=== PATIENT | male | born 1940 | race African-American/Black ===

== ENCOUNTER 2024-10-02 20:39 | Inpatient (IN) | payer BC, OTHER ==
[~2024-10-02] VITALS: Ht 177.8 cm; Wt 61.8 kg
[2024-10-02] MEDS: ETOMIDATE (2MG/ML) 20ML VIAL IV ONE (20:43)
[2024-10-02] MEDS: ROCURONIUM 10MG/ML 10ML VIAL IV ONE (20:43)
[2024-10-02 20:47] VITALS: BP 125/62; PULSE 64; RESP 18; O2SAT 100
[2024-10-02] MEDS ORDERED: MIDAZOLAM DRIP 50 mg/50mL 50 ML IV ONE (20:48)
--- NOTE | 2024-10-02 21:00 | ED.PDOC ---
SOB-HPI HPI Comments 83 year old male came to ER via EMS for shortness of breath. Per EMS, patient has history of dementia, currently being treated for UTI with antibiotics, Patient was picked up at home, wherein he was having dinner, when he started vomiting and became short of breath and unresponsive. Patient was saturating at 95% on room air so patient was given Ambu bagging and was rushed to the ER. Noted also to be hypotensive on scene. Chief Complaint: Shortness of Breath Time Seen by MD: 20:59 Reviewed notes: Associate Dentist Notes Information Source: Emergency Med Personnel Mode of Arrival: EMS Severity: Moderate Timing: Minutes Duration: Since onset Context: With Light Exertion PE Risk Factors: None History of: Recent Antibiotic Prehospital treatment: Oxygen Past Medical History PAST MEDICAL HISTORY: Dementia, UTI'S Surgical History: Unobtainable Family History Family History: Unobtainable Social History Smoker: Unobtainable Alcohol: Unobtainable Drugs: Unobtainable Lives In: Home Unable to Obtain due to: Medical Urgency, Intubated Physical Exam General Appearance: Severe Distress, Other (Patient unresponsive to deep sternal stimuli at this time) HEENT: Normal ENT Inspection, Pharynx Normal, TMs Normal, Other (Patient intubated) Neck: Full Range of Motion, Non-Tender Respiratory: Chest Non-Tender, Decreased Breath Sounds, No Accessory Muscle Use, Respiratory Distress Cardiovascular: No Edema, No JVD, No Murmur, No Gallop, Regular Rate/Rhythm Breast Exam: Deferred Gastrointestinal: No Organomegaly, Non Tender, No Pulsatile Mass, Normal Bowel Sounds, Soft, Other (Central line at right femoral area) Genitalia: Deferred Pelvic: Deferred Rectal: Deferred Extremities: No calf tenderness, Normal capillary refill, Normal range of motion, Non-tender, No pedal edema Musculoskeletal : Apperance: Normal Neurologic: Other (Unresponsive to deep sternal stimuli) Cerebellar Function: Unable to Test Reflexes: NOT DONE Skin: Dry, Normal Color, Warm Lymphatic: No Adenopathy Was a procedure done? Was a procedure done?: Yes Sedation Sedation?: Yes Informed consent obtained: No Sedation start time: 21:11 Sedation end time: 21:41 Sedation total time: Patient still sedated and intubated at this time Central Line Recorder of insertion practice: Observer Occupation of group exercise instructor: Attending Physician Indication: Hypotension, Inability to obtain IV, Suspected infection Room prepared for procedure: Yes Senior Network Architect performed hand hygien: Yes Maximal sterile barrier precau: Mask/Eye shield, Sterile gown, Cap, Sterlie gloves, Large sterlie drape Skin Preparation: Providine iodine Skin preparation completely dr: Yes Insertion site: Right, Femoral Central line catheter type: Tunneled- not dialysis Central line exchanged over a: Yes Antiseptic ointment applied to: Yes Post Assessment: Chest X-Ray Informed consent obtained: No Risks/benefits/alt described: No Intubation Indication: Respiratory Insufficiency, Altered Mental Status Prep: Preoxygenation Pretreated with: Sedation Medicated with: Other (rocuronium, etomidate) Intubation Approach: Orotracheal Intubation size: cm (7.5) Informed consent obtained: No Risks/benefits/alt described: No Differential Dx Differential Diagnosis: Myocardial infarction, Pneumonia, Respiratory Distress, URI (Aspiration Pneumonia) X-Ray, Labs, Meds, VS Vital Signs Date Time Temp Pulse Resp B/P (MAP) Pulse Ox O2 Delivery O2 Flow Rate FiO2 10/02/24 23:49 83 18 149/73 (98) 100 30 10/02/24 23:18 166/81 10/02/24 23:00 98.1 76 18 166/81 (109) 100 98.1 10/02/24 22:45 98.1 67 18 154/78 (103) 100 98.1 10/02/24 22:30 98.1 75 18 158/84 (108) 100 98.1 10/02/24 22:30 158/84 10/02/24 22:15 98.2 70 18 169/81 (110) 100 98.2 10/02/24 22:01 70 18 168/78 100 40 10/02/24 22:00 98.2 73 18 163/83 (109) 100 98.2 10/02/24 21:50 70 18 168/78 (108) 100 40 10/02/24 21:45 72 18 168/78 (108) 100 10/02/24 21:30 81 18 165/87 (113) 100 10/02/24 21:23 125/62 10/02/24 21:20 82 10/02/24 21:15 83 18 143/77 (99) 100 10/02/24 21:00 83 18 143/77 (99) 100 10/02/24 20:49 97.5 80 17 125/62 (83) 95 10/02/24 20:47 64 18 125/62 (83) 100 60 10/02/24 20:47 64 18 125/62 (83) 100 60 10/02/24 20:45 80 10/02/24 20:45 97.5 81 17 125/62 (83) 95 97.5 10/02/24 20:43 125/62 Lab Test 10/03/24 00:26 10/02/24 22:10 10/02/24 21:40 10/02/24 21:38 Range/Units Troponin I High Sensitivity Pending 5 </=54 ng/L Blood Gas Specimen Type Arterial Blood Gas Sample Site Right radial Blood Gas Patient Temperature 37.0 Arterial Blood Date Drawn [id number] Arterial Blood pH 7.489 H 7.350-7.450 Arterial Blood Partial Pressure CO2 31.0 L 35.0-48.0 mmHg Arterial Blood Partial Pressure O2 159.0 H 83.0-108.0 mmHg Arterial Blood HCO3 23.0 21.0-28.0 mmol/L Arterial Blood Oxygen Saturation 99.1 H 94.0-98.0 % Arterial Blood Base Excess 0.4 -2.0-3.0 mmol/L Arterial Blood Oxyhemoglobin 98.2 H 94.0-98.0 % Arterial Blood Carboxyhemoglobin 0.4 L 0.5-1.5 % Arterial Blood Methemoglobin 0.5 0.0-1.5 % Jordon Test Modified Blood Gas Total Hemoglobin 12.30 L 13.5-17.5 g/dL Blood Gas Set Respiration Rate 18.0 Blood Gas Modality Vent - ac FiO2 % 60.0 Blood Gas Tidal Volume 500.0 Blood Gas PEEP or CPAP 5.0 Urine Color Yellow Yellow Urine Clarity Clear Clear Urine pH 5.5 5.0-9.0 Urine Specific [place] 1.024 1.001-1.035 Urine Protein Trace H Negative Urine Ketones Negative Negative Urine Blood Trace H Negative /uL Urine Nitrite Negative Negative Urine Bilirubin Negative Negative Urine Urobilinogen 2 H Negative mg/dL Urine Leukocyte Esterase Negative Negative /uL Urine RBC 1 0 - 3 /hpf Urine WBC 1 0 - 3 /hpf Urine Squamous Epithelial Cells Few <5 /hpf Urine Bacteria None seen None Seen /hpf Urine Hyaline Casts Few 0 - 2 /lpf Urine Mucus Few None Seen Urine Glucose Normal Normal mg/dL Test 10/02/24 21:04 Range/Units White Blood Count 9.6 4.4-10.8 10^3/uL Red Blood Count 3.59 L 4.5-5.90 10^6/uL Hemoglobin 11.3 L 13.5-17.5 g/dL Hematocrit 32.5 L 41.0-53.0 % Mean Corpuscular Volume 90.6 80.0-100.0 fL Mean Corpuscular Hemoglobin 31.4 28.0-32.0 pg Mean Corpuscular Hemoglobin Concent 34.6 32.0-36.0 g/dL Red Cell Distribution Width 13.8 11.8-14.3 % Platelet Count 255 140-450 10^3/uL Mean Platelet Volume 9.1 6.9-10.8 fL Neutrophils (%) (Auto) 79.6 37.0-80.0 % Lymphocytes (%) (Auto) 11.5 10.0-50.0 % Monocytes (%) (Auto) 6.9 0.0-12.0 % Eosinophils (%) (Auto) 1.1 0.0-7.0 % Basophils (%) (Auto) 0.9 0.0-2.0 % Neutrophils # (Auto) 7.7 1.6-8.6 10 ^3/uL Lymphocytes # (Auto) 1.1 0.4-5.4 10 ^3/uL Monocytes # (Auto) 0.7 0-1.3 10 ^3/uL Eosinophils # (Auto) 0.1 0-0.8 10 ^3/uL Basophils # (Auto) 0.1 0-0.2 10 ^3/uL Nucleated Red Blood Cells 0.0 % Sodium Level 148 H 136-145 mmol/L Potassium Level 3.3 L 3.5-5.1 mmol/L Chloride Level 113 H 98-107 mmol/L Carbon Dioxide Level 25 20-31 mmol/L Anion Gap 10 5-15 Blood Urea Nitrogen 14 9-23 mg/dL Creatinine 1.05 0.700-1.30 mg/dL Glomerular Filtration Rate Calc 71 >90 mL/min BUN/Creatinine Ratio 13.3 10.0-20.0 Serum Glucose 155 H 74-106 mg/dL Lactic Acid Level 1.3 0.4-2.0 mmol/L Calcium Level 8.8 8.7-10.4 mg/dL Total Bilirubin 0.4 0.2-1.0 mg/dL Aspartate Amino Transferase (AST) 9 L 13-40 U/L Alanine Aminotransferase (ALT) 10 7-40 U/L Alkaline Phosphatase 51 46-116 U/L Troponin I High Sensitivity 4 </=54 ng/L B-Type Natriuretic Peptide 37.62 0-100 pg/mL Total Protein 5.6 L 5.7-8.2 g/dL Albumin 3.2 3.2-4.8 g/dL Lipase 29 12-53 U/L Current Medications Medications (Trade) Dose Ordered Sig/Larissa Route Start Time Stop Time Status Last Admin Etomidate 20 mg ONCE ONCE IV 10/02/24 20:43 10/02/24 21:12 DC 10/02/24 20:43 Rocuronium [place] 100 mg ONCE ONCE IV 10/02/24 20:43 10/02/24 21:12 DC 10/02/24 20:43 Midazolam HCl 50 ml @ 1 mls/hr Q24H IV 10/02/24 21:15 10/02/24 22:45 DC 10/02/24 21:23 Midazolam HCl 50 ml @ 1 mls/hr Q24H IV 10/02/24 23:00 10/02/24 23:18 Time of 1ST Reevaluation: 20:52 Reevaluation 1ST: Unchanged Patient Education/Counseling: Pt Unresponsive Family Education/Counseling: No Family Present Departure 1 Departure Time of Disposition: 00:52 (Patient presented unresponsive and was aspirating. Patient was intubated emergently to protect his airway. Central line was placed with a right thumb for IV access and multiple medications. Patient is dehyd rated and likely aspirated with an infection brewing.. We will cover the patient with antibiotics and we will admit patient further workup.) Impression: Primary Impression: Aspiration into lower respiratory tract Qualified Codes: T17.800A - Unspecified foreign body in other parts of respiratory tract causing asphyxiation, initial encounter Additional Impressions: Unresponsive Pneumonia Qualified Codes: J18.9 - Pneumonia, unspecified organism Disposition: ADMITTED INPATIENT Admit to: ICU Condition: Critical Critical Care Note Critical Care Time?: Yes (45 min-critical care time only) Critical care comment: Unresponsive an acute respiratory failure Authorized and Performed by: Bolivar Conde MD Total critical care time: Approximately 49 minutes Due to a high probability of clinically significant, life threatening deterioration, the patient required my highest level of preparedness to intervene emergently and I personally spent this critical care time directly and personally managing the patient. This critical care time included obtaining a history; examining the patient; pulse oximetry; ordering and review of studies; arranging urgent treatment with development of a management plan; evaluation of patient's response to treatment; frequent reassessment; and, discussions with other providers. This critical care time was performed to assess and manage the high probability of imminent, life-threatening deterioration that could result in multi-organ failure. It was exclusive of separately billable procedures and treating other patients and teaching time. Please see my other sections and the rest of the note for further information on patient assessment and treatment. Stability Stability form required: No Heart Score Heart Score: Heart Score Response (Comments) Value History Moderate Suspicious 1 EKG Repolarization Disturb 1 Age >65 2 Risk Factors 1 or 2 risk factors 1 Troponin Normal limit 0 Total 5 I personally scribed for BOLIVAR CONDE MD (LENORE) on 10/02/24 at 21:00. Electronically submitted by Jhonny Giron ([employer]). I personally scribed for BOLIVAR CONDE MD (LENORE) on 10/02/24 at 21:55. Electronically submitted by Jhonny Giron ([employer]). I personally scribed for BOLIVAR CONDE MD (LENORE) on 10/03/24 at 00:45. Electronically submitted by Jhonny Giron ([facility] BOLIVAR CONDE MD Oct 02, 2024 21:00
[2024-10-02] MEDS: MIDAZOLAM DRIP 50 mg/50mL 50 ML IV SCH ×2 (21:23→23:18)
[2024-10-02 21:33] LABS: Basophils # (auto) 0.1 10 ^3/uL (0-0.2); Basophils % (auto) 0.9 % (0.0-2.0); Eosinophils # (auto) 0.1 10 ^3/uL (0-0.8); Eosinophils % (auto) 1.1 % (0.0-7.0); Hematocrit 32.5 % (41.0-53.0); Hemoglobin 11.3 g/dL (13.5-17.5); Lymphocytes # (auto) 1.1 10 ^3/uL (0.4-5.4); Lymphocytes % (auto) 11.5 % (10.0-50.0); Mean Corpuscular Hemoglobin 31.4 pg (28.0-32.0); Mean Corpuscular Hgb Conc. 34.6 g/dL (32.0-36.0); Mean Corpuscular Volume 90.6 fL (80.0-100.0); Monocytes # (auto) 0.7 10 ^3/uL (0-1.3); Monocytes % (auto) 6.9 % (0.0-12.0); Neutrophils # (auto) 7.7 10 ^3/uL (1.6-8.6); Neutrophils % (auto) 79.6 % (37.0-80.0); Platelet Count (auto) 255 10^3/uL (140-450); Red Blood Cells 3.59 10^6/uL (4.5-5.90); Red Cell Distribution Width 13.8 % (11.8-14.3); White Blood Cell 9.6 10^3/uL (4.4-10.8)
[2024-10-02 21:45] LABS: Urine Bacteria None Seen /hpf (None Seen)
[2024-10-02 21:47] LABS: Base Excess 0.4 mmol/L (-2.0-3.0)
[2024-10-02 21:48] LABS: Alanine Aminotransferase 10 U/L (7-40); Albumin 3.2 g/dL (3.2-4.8); Alkaline Phosphatase 51 U/L (46-116); Anion Gap 10 (5-15); Aspartate Aminotransferase 9 U/L (13-40); BUN/Creatinine Ratio 13.3 (10.0-20.0); Bilirubin, Total 0.4 mg/dL (0.2-1.0); Blood Urea Nitrogen 14 mg/dL (9-23); Calcium 8.8 mg/dL (8.7-10.4); Carbon Dioxide 25 mmol/L (20-31); Chloride 113 mmol/L (98-107); Glucose 155 mg/dL (74-106); Potassium 3.3 mmol/L (3.5-5.1); Sodium 148 mmol/L (136-145); Total Protein 5.6 g/dL (5.7-8.2)
[2024-10-02 21:50] VITALS: BP 168/78; PULSE 70; RESP 18; O2SAT 100
--- NOTE | 2024-10-02 21:55 | DVH ---
CHEST RADIOGRAPH Indication:ET TUBE AND NG TUBE PLACEMENT Technique: Single frontal view of the chest was obtained Comparison: None FINDINGS: Lines and Tubes: Endotracheal tube terminates about 4.4 cm above the reno. Enteric tube is in satis factory position. There is a suggested right-sided ventricular peritoneal shunt catheter with the dis shayy end incompletely visualized of the left hemiabdomen Lungs: Left basilar opacification with obscuration of the left hemidiaphragm No pneumothorax. Cardiomediastinal contours: Unremarkable Bones: No acute osseous abnormality. IMPRESSION: Endotracheal and enteric tubes are in satisfactory position. Left basilar opacification with obscuration of the left hemidiaphragm with be from pleural effusion w ith associated atelectasis. Underlying infectious process can not be excluded.
[2024-10-02 21:56] LABS: Urine Blood TRACE /uL (Negative); Urine Clarity Clear (Clear); Urine Color Yellow (Yellow); Urine Hyaline Cast FEW /lpf (0 - 2); Urine Mucus FEW (None Seen); Urine Protein, UAD TRACE (Negative); Urine Specific Gravity 1.024 (1.001-1.035); Urine Urobilinogen 2 mg/dL (Negative); Urine WBC 1 /hpf (0 - 3); Urine pH 5.5 (5.0-9.0)
[2024-10-02 22:01] VITALS: BP 168/78; PULSE 70; RESP 18; O2SAT 100
[2024-10-02 22:05] LABS: Lipase 29 U/L (12-53)
[2024-10-02] MEDS ORDERED: MIDAZOLAM DRIP 50 mg/50mL 50 ML IV SCH (23:00)
[2024-10-02 23:49] VITALS: BP 149/73; PULSE 83; RESP 18; O2SAT 100
[2024-10-03] VITALS (79 sets, daily range): BP systolic 104–187; BP diastolic 49–112; PULSE 66–90; RESP 10–20; TEMP 97–98.6; O2SAT 98–100
[2024-10-03] MEDS: VANCOMYCIN 1GM/200ML PREMIX 200 ML IV ONE (00:15)
[2024-10-03] MEDS: AZITHROMYCIN 500MG/ 250ML 250 ML IV ONE (00:56)
[2024-10-03] MEDS: CEFEPIME 2GM/50ML NS 50 ML IV ONE (00:57)
[2024-10-03] MEDS: SOD CHL 0.45% 1,000 ML IV ONE (01:45)
[2024-10-03] MEDS ORDERED: ONDANSETRON HCL 4 MG/2 ML VIAL IV PRN (01:45)
[2024-10-03] MEDS ORDERED: MORPHINE SULFATE INJ 2 MG/ml SYRG IV PRN (01:45)
[2024-10-03] MEDS ORDERED: NITROGLYCERIN 0.4 MG SL TAB SL PRN (01:45)
[2024-10-03] MEDS: NOREPINEPHRINE 8 MG/250ML KIT 250 ML IV SCH (03:00)
--- NOTE | 2024-10-03 03:25 | DVH ---
Examination: HWOCT CLINICAL INDICATION: Unresponsive, intubated COMPARISON: None. CONTRAST USED: None. TECHNIQUE: The examination was performed obtaining 5 mm slices without contrast. CT scan was done ac cording to ALARA (As Low as Reasonably Achievable). Multiplanar reconstructions were obtained. FINDINGS: SUPRATENTORIAL BRAIN: Cerebral Hemispheres: There is no midline shift or mass effect, intra or extra-axial fluid collections or hemorrhage. Prominent sulcal-gyral pattern in both cerebral hemispheres with dilatation of both lateral and third ventricles, suggestive of cerebral atrophy (likely age-related) with mild ex-vacuo dilatation of reuben tricular system. Periventricular White Matter/Basal Ganglia: No abnormal areas of altered attenuation within the basal ganglia. Diffuse hypodensities noted in periventricular deep white matter of bilateral cerebral hemispheres. POSTERIOR FOSSA: The brainstem is unremarkable. Prominent cerebellar folia, suggestive of cerebellar atrophy, likely age-related. VENTRICULAR SYSTEM: Ventricular shunt drainage tube noted on the right side, with its tip in the body of right lateral ve ntricle. There is no evidence of hydrocephalus or transependymal flow of cerebrospinal fluid. SKULL BASE AND PARASELLAR REGION: The skull base is normal with no parasellar masses or abnormalities identified. CALVARIUM AND SCALP REGION: No acute fracture in the skull vault. PARANASAL SINUSES: No significant inflammatory changes are identified in the visualized paranasal sinuses. Nasogastric tube noted. IMPRESSION: 1. No evidence of acute large vessel territorial ischemic infarction or intraparenchymal hematoma in current study. 2. Diffuse hypodensities noted in periventricular deep white matter of bilateral cerebral hemisphere s, due to transependymal seepage of CSF / chronic periventricular ischemic changes. 3. Ventricular shunt drainage tube noted on the right side, with its tip in the body of right latera l ventricle. 4. Chronic and / or ancillary findings as described above. 5. Advised further evaluation with MRI brain without contrast if clinically indicated. Electronically Signed 10/03/2024 03:16 Elisabeth Barragan
[2024-10-03] MEDS ORDERED: methylPREDNISolone SOD SUCC 125 MG/2 ML VL IV SCH (06:00)
[2024-10-03] MEDS: ALBUTEROL SULF 2.5 MG/0.5ML(0.5%) NEB SOLN NEB SCH (06:14)
[2024-10-03] MEDS: IPRATROPIUM BROM 0.5 MG/2.5ML INH SOL NEB SCH (06:14)
[2024-10-03 06:29] LABS: Basophils # (auto) 0.1 10 ^3/uL (0-0.2); Basophils % (auto) 0.5 % (0.0-2.0); Eosinophils # (auto) 0.1 10 ^3/uL (0-0.8); Hematocrit 32.6 % (41.0-53.0); Lymphocytes # (auto) 0.9 10 ^3/uL (0.4-5.4); Lymphocytes % (auto) 8.2 % (10.0-50.0); Mean Corpuscular Hemoglobin 30.7 pg (28.0-32.0); Mean Corpuscular Hgb Conc. 33.7 g/dL (32.0-36.0); Mean Corpuscular Volume 91.3 fL (80.0-100.0); Monocytes # (auto) 0.8 10 ^3/uL (0-1.3); Monocytes % (auto) 7.3 % (0.0-12.0); Neutrophils # (auto) 9.3 10 ^3/uL (1.6-8.6); Nucleated Red Blood Cells % 0.1 %; Platelet Count (auto) 266 10^3/uL (140-450); Red Blood Cells 3.57 10^6/uL (4.5-5.90); Red Cell Distribution Width 13.2 % (11.8-14.3); White Blood Cell 11.2 10^3/uL (4.4-10.8)
[2024-10-03 06:52] LABS: Albumin 3.3 g/dL (3.2-4.8); Alkaline Phosphatase 49 U/L (46-116); Anion Gap 9 (5-15); BUN/Creatinine Ratio 17.1 (10.0-20.0); Bilirubin, Total 0.7 mg/dL (0.2-1.0); Blood Urea Nitrogen 13 mg/dL (9-23); Carbon Dioxide 23 mmol/L (20-31); Chloride 113 mmol/L (98-107); Glucose 135 mg/dL (74-106); Potassium 3.2 mmol/L (3.5-5.1); Sodium 145 mmol/L (136-145); Total Protein 5.6 g/dL (5.7-8.2)
[2024-10-03 06:53] LABS: Alanine Aminotransferase < 9 U/L (7-40); Aspartate Aminotransferase < 8 U/L (13-40)
[2024-10-03 06:58] LABS: Base Excess 0.6 mmol/L (-2.0-3.0)
--- NOTE | 2024-10-03 09:01 | DVHINCON2 ---
Referring Physician pulm consulted [phone] Reason for Consultation dx 1 resp failure 2 m ventilation 3 lt lowewr lobe infiltrate most likely aspiration plan 1 reduce t v 450 and rate 18 and peep 5 and 30%2 rocephin 2 gm i v q d 3 solumedrol 40 q 8 and med neb q 6 Allergies: Coded Allergies: NO KNOWN ALLERGIES (Unverified , 10/02/24) Current Medications Current Medications Medications (Trade) Dose Ordered Sig/Larissa Route PRN Reason Start Time Stop Time Status Last Admin Midazolam HCl 50 ml @ 1 mls/hr Q24H IV 10/02/24 21:15 10/02/24 22:45 DC 10/02/24 21:23 Midazolam HCl 50 ml @ 1 mls/hr Q24H IV 10/02/24 23:00 10/02/24 22:49 DC Midazolam HCl 50 ml @ 1 mls/hr Q24H IV 10/02/24 23:00 10/02/24 23:18 Nitroglycerin (Ntrostat Sublingual) 0.4 mg Q5MINP PRN SL FOR CHEST PAIN 10/03/24 01:45 Morphine Sulfate 2 mg Q30M PRN IV FOR CHEST PAIN 10/03/24 01:45 Albuterol (Ventolin Medneb) 2.5 mg Q6HR NEB 10/03/24 06:00 10/03/24 06:14 Ipratropium [place] (Atrovent Medneb) 0.5 mg Q6HP NEB 10/03/24 06:00 10/03/24 06:14 Ondansetron HCl (Zofran) 4 mg Q6HPRN PRN IV NAUSEA / VOMITING 10/03/24 01:45 Methylprednisolone Sodium Succinate (Solu Medrol) 125 mg Q8HR IV 10/03/24 06:00 10/03/24 22:01 UNV Norepinephrine Bitartrate 250 ml @ 3.75 mls/hr Q24H IV 10/03/24 03:00 Vital Signs Vital Signs Date Time Temp Pulse Resp B/P (MAP) Pulse Ox O2 Delivery O2 Flow Rate FiO2 10/03/24 08:03 73 18 130/64 (86) 100 30 10/03/24 08:00 97.9 97.9 10/03/24 08:00 Mechanical Ventilator+ Labs/Diagnostic Data Labs Test 10/03/24 06:53 10/03/24 05:26 10/03/24 01:10 10/03/24 00:26 Range/Units Blood Gas Specimen Type Arterial Blood Gas Sample Site Right radial Blood Gas Patient Temperature 37.0 Arterial Blood Date Drawn [id number] Arterial Blood pH 7.430 7.350-7.450 Arterial Blood Partial Pressure CO2 38.1 35.0-48.0 mmHg Arterial Blood Partial Pressure O2 111.7 H 83.0-108.0 mmHg Arterial Blood HCO3 24.7 21.0-28.0 mmol/L Arterial Blood Oxygen Saturation 97.9 94.0-98.0 % Arterial Blood Base Excess 0.6 -2.0-3.0 mmol/L Arterial Blood Oxyhemoglobin 97.1 94.0-98.0 % Arterial Blood Carboxyhemoglobin 0.3 L 0.5-1.5 % Arterial Blood Methemoglobin 0.5 0.0-1.5 % Jordon Test Modified Blood Gas Total Hemoglobin 12.00 L 13.5-17.5 g/dL Blood Gas Set Respiration Rate 18.0 Blood Gas Modality Vent - ac FiO2 % 30.0 Blood Gas Tidal Volume 500.0 Blood Gas PEEP or CPAP 5.0 White Blood Count 11.2 H 4.4-10.8 10^3/uL Red Blood Count 3.57 L 4.5-5.90 10^6/uL Hemoglobin 11.0 L 13.5-17.5 g/dL Hematocrit 32.6 L 41.0-53.0 % Mean Corpuscular Volume 91.3 80.0-100.0 fL Mean Corpuscular Hemoglobin 30.7 28.0-32.0 pg Mean Corpuscular Hemoglobin Concent 33.7 32.0-36.0 g/dL Red Cell Distribution Width 13.2 11.8-14.3 % Platelet Count 266 140-450 10^3/uL Mean Platelet Volume 8.0 6.9-10.8 fL Neutrophils (%) (Auto) 83.0 H 37.0-80.0 % Lymphocytes (%) (Auto) 8.2 L 10.0-50.0 % Monocytes (%) (Auto) 7.3 0.0-12.0 % Eosinophils (%) (Auto) 1.0 0.0-7.0 % Basophils (%) (Auto) 0.5 0.0-2.0 % Neutrophils # (Auto) 9.3 H 1.6-8.6 10 ^3/uL Lymphocytes # (Auto) 0.9 0.4-5.4 10 ^3/uL Monocytes # (Auto) 0.8 0-1.3 10 ^3/uL Eosinophils # (Auto) 0.1 0-0.8 10 ^3/uL Basophils # (Auto) 0.1 0-0.2 10 ^3/uL Nucleated Red Blood Cells 0.1 % Sodium Level 145 136-145 mmol/L Potassium Level 3.2 L 3.5-5.1 mmol/L Chloride Level 113 H 98-107 mmol/L Carbon Dioxide Level 23 20-31 mmol/L Anion Gap 9 5-15 Blood Urea Nitrogen 13 9-23 mg/dL Creatinine 0.76 0.700-1.30 mg/dL Glomerular Filtration Rate Calc 90 >90 mL/min BUN/Creatinine Ratio 17.1 10.0-20.0 Serum Glucose 135 H 74-106 mg/dL Calcium Level 9.0 8.7-10.4 mg/dL Total Bilirubin 0.7 0.2-1.0 mg/dL Aspartate Amino Transferase (AST) < 8 L 13-40 U/L Alanine Aminotransferase (ALT) < 9 7-40 U/L Alkaline Phosphatase 49 46-116 U/L Total Protein 5.6 L 5.7-8.2 g/dL Albumin 3.3 3.2-4.8 g/dL Lactic Acid Level 1.2 0.4-2.0 mmol/L Troponin I High Sensitivity 3 L </=54 ng/L Test 10/02/24 21:38 10/02/24 21:04 Range/Units Urine Color Yellow Yellow Urine Clarity Clear Clear Urine pH 5.5 5.0-9.0 Urine Specific [place] 1.024 1.001-1.035 Urine Protein Trace H Negative Urine Ketones Negative Negative Urine Blood Trace H Negative /uL Urine Nitrite Negative Negative Urine Bilirubin Negative Negative Urine Urobilinogen 2 H Negative mg/dL Urine Leukocyte Esterase Negative Negative /uL Urine RBC 1 0 - 3 /hpf Urine WBC 1 0 - 3 /hpf Urine Squamous Epithelial Cells Few <5 /hpf Urine Bacteria None seen None Seen /hpf Urine Hyaline Casts Few 0 - 2 /lpf Urine Mucus Few None Seen Urine Glucose Normal Normal mg/dL B-Type Natriuretic Peptide 37.62 0-100 pg/mL Lipase 29 12-53 U/L NICHOLAS SAENZ MD Oct 03, 2024 09:01
[2024-10-03] MEDS ORDERED: POTASSIUM CHL 20MEQ/100ML 100 ML IV SCH (09:15)
[2024-10-03] MEDS: POTASSIUM CHL 20MEQ/100ML 100 ML IV SCH (09:28)
--- NOTE | 2024-10-03 09:51 | DVHHP2 ---
Admitting Diagnosis: AMS, acute respiratory failure History of Present Illness HPI 83 year old male with reported dementia, UTI being treated with antibiotics, was brought to the ED from home. Per EMS, he chocked on pizza, vomited and then became unresponsive.He was bagged en route and delivered to the ED. ER intubated the patient since the patient was unresponsive. In addition, patient had hypotension and Levophed was ordered. All the information was obtained from EMS/ER MD Past Medical History Central Nervous System: Dementia H&P Exam Vital Signs Vital Signs Date Time Temp Pulse Resp B/P (MAP) Pulse Ox O2 Delivery O2 Flow Rate FiO2 10/03/24 09:37 82 19 144/69 (94) 100 30 10/03/24 09:30 97.9 97.9 10/03/24 08:00 Mechanical Ventilator+ General Appeara: Other (intubated) Head Exam: Normal inspection Eye Exam: bilateral eye PERRL Pulmonary/Respiratory: Crackles Cardiovascular/Chest: Regular rate Abdominal Exam: Normal bowel sounds Neuro/Mental St: Other (intubated, sedated) Labs/Xrays Labs Test 10/03/24 06:53 10/03/24 05:26 10/03/24 01:10 10/03/24 00:26 Range/Units Blood Gas Specimen Type Arterial Blood Gas Sample Site Right radial Blood Gas Patient Temperature 37.0 Arterial Blood Date Drawn [id number] Arterial Blood pH 7.430 7.350-7.450 Arterial Blood Partial Pressure CO2 38.1 35.0-48.0 mmHg Arterial Blood Partial Pressure O2 111.7 H 83.0-108.0 mmHg Arterial Blood HCO3 24.7 21.0-28.0 mmol/L Arterial Blood Oxygen Saturation 97.9 94.0-98.0 % Arterial Blood Base Excess 0.6 -2.0-3.0 mmol/L Arterial Blood Oxyhemoglobin 97.1 94.0-98.0 % Arterial Blood Carboxyhemoglobin 0.3 L 0.5-1.5 % Arterial Blood Methemoglobin 0.5 0.0-1.5 % Jordon Test Modified Blood Gas Total Hemoglobin 12.00 L 13.5-17.5 g/dL Blood Gas Set Respiration Rate 18.0 Blood Gas Modality Vent - ac FiO2 % 30.0 Blood Gas Tidal Volume 500.0 Blood Gas PEEP or CPAP 5.0 White Blood Count 11.2 H 4.4-10.8 10^3/uL Red Blood Count 3.57 L 4.5-5.90 10^6/uL Hemoglobin 11.0 L 13.5-17.5 g/dL Hematocrit 32.6 L 41.0-53.0 % Mean Corpuscular Volume 91.3 80.0-100.0 fL Mean Corpuscular Hemoglobin 30.7 28.0-32.0 pg Mean Corpuscular Hemoglobin Concent 33.7 32.0-36.0 g/dL Red Cell Distribution Width 13.2 11.8-14.3 % Platelet Count 266 140-450 10^3/uL Mean Platelet Volume 8.0 6.9-10.8 fL Neutrophils (%) (Auto) 83.0 H 37.0-80.0 % Lymphocytes (%) (Auto) 8.2 L 10.0-50.0 % Monocytes (%) (Auto) 7.3 0.0-12.0 % Eosinophils (%) (Auto) 1.0 0.0-7.0 % Basophils (%) (Auto) 0.5 0.0-2.0 % Neutrophils # (Auto) 9.3 H 1.6-8.6 10 ^3/uL Lymphocytes # (Auto) 0.9 0.4-5.4 10 ^3/uL Monocytes # (Auto) 0.8 0-1.3 10 ^3/uL Eosinophils # (Auto) 0.1 0-0.8 10 ^3/uL Basophils # (Auto) 0.1 0-0.2 10 ^3/uL Nucleated Red Blood Cells 0.1 % Sodium Level 145 136-145 mmol/L Potassium Level 3.2 L 3.5-5.1 mmol/L Chloride Level 113 H 98-107 mmol/L Carbon Dioxide Level 23 20-31 mmol/L Anion Gap 9 5-15 Blood Urea Nitrogen 13 9-23 mg/dL Creatinine 0.76 0.700-1.30 mg/dL Glomerular Filtration Rate Calc 90 >90 mL/min BUN/Creatinine Ratio 17.1 10.0-20.0 Serum Glucose 135 H 74-106 mg/dL Calcium Level 9.0 8.7-10.4 mg/dL Total Bilirubin 0.7 0.2-1.0 mg/dL Aspartate Amino Transferase (AST) < 8 L 13-40 U/L Alanine Aminotransferase (ALT) < 9 7-40 U/L Alkaline Phosphatase 49 46-116 U/L Total Protein 5.6 L 5.7-8.2 g/dL Albumin 3.3 3.2-4.8 g/dL Lactic Acid Level 1.2 0.4-2.0 mmol/L Troponin I High Sensitivity 3 L </=54 ng/L Test 10/02/24 21:38 10/02/24 21:04 Range/Units Urine Color Yellow Yellow Urine Clarity Clear Clear Urine pH 5.5 5.0-9.0 Urine Specific [place] 1.024 1.001-1.035 Urine Protein Trace H Negative Urine Ketones Negative Negative Urine Blood Trace H Negative /uL Urine Nitrite Negative Negative Urine Bilirubin Negative Negative Urine Urobilinogen 2 H Negative mg/dL Urine Leukocyte Esterase Negative Negative /uL Urine RBC 1 0 - 3 /hpf Urine WBC 1 0 - 3 /hpf Urine Squamous Epithelial Cells Few <5 /hpf Urine Bacteria None seen None Seen /hpf Urine Hyaline Casts Few 0 - 2 /lpf Urine Mucus Few None Seen Urine Glucose Normal Normal mg/dL B-Type Natriuretic Peptide 37.62 0-100 pg/mL Lipase 29 12-53 U/L Assessment/Plan Problem List: (1) Unresponsive (2) Aspiration into lower respiratory tract Plan Ventilatory support, RT, Steroids, Abx, Pulmonary consult, IVF, ECHO Plan discussed with: Other (ER MD, ER nurse) MISHEL BRAVO MD Oct 03, 2024 09:51
[2024-10-03] MEDS: cefTRIAXone 2GM/50ML D5W 50 ML IV SCH (10:29)
--- NOTE | 2024-10-03 10:41 | ECG ---
[facility] Test Date: 2024-10-02 Test Time: 21:20:37 Pat Name: FREDERICK RUSSELL Department: ER Room: 0220T Gender: M Mental Measurements Teacher: LURDES : 1940 Requested By: BOLIVAR BENZ Order Number: [id number] Reading MD: Abraham Camarillo Measurements Intervals [place] Rate: 82 P: 88 ID: [id number] QRS: 86 QRSD: 73 T: 0 QT: 504 QTc: 589 Interpretive Statements Sinus rhythm Borderline right axis deviation Nonspecific T abnrm, anterolateral leads Prolonged QT interval Electronically Signed On 10-09-2024 13:19:46 PST by Abraham Camarillo Please click the below link to view image of tracing.
[2024-10-03] MEDS: methylPREDNISolone SOD SUCC 40 MG/ML VL IV SCH (12:49)
--- NOTE | 2024-10-03 17:49 | DVHSR ---
APPROVED REPORT EXAM: Two-dimensional and M-mode echocardiogram with Doppler and color Doppler. Blood Pressure: 128/65 mmHg INDICATION Acute respiratory failure RISK FACTORS Height: 70, Weight: 160 DIMENSIONS LVDd4.3 (3.8-5.7cm)LA (2D)3.1 (1.9-4.0cm)Aortic Root4.0 (2.0-3.7cm) LVDs2.9 (2.5-4.0cm)LA (MM) (1.9-4.0cm)Aortic Cusp Exc1.3 (1.5-2.0cm) EF (%) 60.0 (55-70%)Rt. Atrium3.6 (1.9-4.0cm)Asc. Aorta cm IVSd1.0 (0.7-1.1cm)RV (D) (1.8-2.4cm) PWd1.2 (0.7-1.1cm) Mitral Valve MitralMitral Stenosis E wave0.53m/sMV Mean GR.mmHg A wave0.68m/sMV Peak GR.mmHg E/A ratio0.82D MVAcm2 DECEL [id number] 1/2 Timems Aortic Valve Aortic ValveAortic Stenosis V10.91m/Mikala Mean GR.4mmHg V21.43m/Mikala Peak GR.8mmHg LVOT Diameter2.4 (1.8-2.4cm)Doppler AVA2.88cm2 Pulmonic Valve V20.96m/s Tricuspid Valve TR Velocity2.90m/s [id number] Conclusion lvef 60% by visual estimate mild LVH normal rv function small pericarial effusion adjacent to RV, no HD compromise left atrium enlarged
--- NOTE | 2024-10-03 20:43 | DVHINCON2 ---
DATE OF CONSULTATION: 10/03/[address] Healy, thank you so much for letting me participate in the care of the patient. HISTORY OF PRESENT ILLNESS: The patient is an 83-year-old gentleman, who has dementia, who has had UTI. The patient was having dinner, he started vomiting and became unresponsive, that is the history. History is not obtained from the patient, the patient is intubated. No family member is here at this time. The patient also had a shunt put in I understand, and he is intubated on mechanical ventilation. I was called to manage the mechanical ventilation at this time. LABORATORY INVESTIGATION: Sodium 145, potassium 3.2 and troponins were negative. Chest x-ray: Left lower lobe infiltrate, most likely aspiration and the patient has been started on steroids, which is a high dose, we are going to cut down to 40 mg q. 8 hours. The patient is getting med neb treatment with albuterol and ipratropium and getting IV fluids, putting out urine. The patient was given azithromycin and cefepime and vancomycin at this time, so I will discuss with the hospitalist. At this time, I am just starting Rocephin 2 g IV daily until the hospitalist decided to change the antibiotics. ____ blood cultures, urine culture. Blood gases are ____, 38, 111. He weighs almost 72 kg and he is getting tidal volume of 500, I am going to cut down the tidal volume to 450, rate of 18, PEEP of 5 and he is on 30% and saturating okay. PHYSICAL EXAMINATION: LUNGS: Diminished breath sounds bilaterally. AP diameter is increased. Hyperinflated lung ____, left lower lobe infiltrate, most likely pneumonia from the aspiration. ABDOMEN: Nontender. PLAN: Will be to reduce the Solu-Medrol to 40 q. 8, Rocephin 2 g IV daily, and to reduce the tidal volume to 450, rate 18, PEEP of 5 and 30%. An ABG in the morning and continue the med neb treatments. Rayshawn Hernandez MD MA/GABRIEL/[place]/JESSIE TID: [id number] RECEIPT: [id number]
[2024-10-03] MEDS: hydrALAZINE HCL 20 MG/ML VL IV PRN (22:19)
[2024-10-04] VITALS (106 sets, daily range): BP systolic 81–180; BP diastolic 38–102; PULSE 70–99; RESP 12–25; TEMP 97.2–98.8; O2SAT 90–100
[2024-10-04 04:24] LABS: Hematocrit 34.6 % (41.0-53.0); Hemoglobin 11.9 g/dL (13.5-17.5); Mean Corpuscular Hemoglobin 31.1 pg (28.0-32.0); Mean Corpuscular Hgb Conc. 34.3 g/dL (32.0-36.0); Mean Corpuscular Volume 90.6 fL (80.0-100.0); Platelet Count (auto) 256 10^3/uL (140-450); Red Blood Cells 3.82 10^6/uL (4.5-5.90); Red Cell Distribution Width 13.8 % (11.8-14.3); White Blood Cell 11.8 10^3/uL (4.4-10.8)
[2024-10-04 04:45] LABS: Albumin 3.4 g/dL (3.2-4.8); Alkaline Phosphatase 56 U/L (46-116); Anion Gap 8 (5-15); Aspartate Aminotransferase 8 U/L (13-40); BUN/Creatinine Ratio 18.4 (10.0-20.0); Band Neutrophils % (manual) 0; Basophils % (manual) 0 (0.0-2.0); Bilirubin, Total 0.4 mg/dL (0.2-1.0); Blast Cells 0; Blood Urea Nitrogen 16 mg/dL (9-23); Calcium 9.4 mg/dL (8.7-10.4); Carbon Dioxide 24 mmol/L (20-31); Chloride 111 mmol/L (98-107); Eosinophils % (manual) 0 (0-7); Glucose 171 mg/dL (74-106); Metamyelocytes % 0; Monocytes % (manual) 0 (0-12); Myelocytes % 0; Potassium 3.7 mmol/L (3.5-5.1); Promyelocytes % 0; Reactive Lymphocytes 0; Sodium 143 mmol/L (136-145); Total Protein 5.7 g/dL (5.7-8.2)
[2024-10-04 04:51] LABS: Alanine Aminotransferase 9 U/L (7-40)
[2024-10-04 05:50] LABS: Lymphocytes % (manual) 2 (10.0-50.0); Platelet Estimate Adequate
[2024-10-04 07:40] LABS: Base Excess -1.5 mmol/L (-2.0-3.0)
--- NOTE | 2024-10-04 10:33 | DVH ---
CHEST RADIOGRAPH Indication:INTUBATED Technique: Single frontal view of the chest was obtained COMPARISON: XY CHEST XRAY 1 VIEW on DOS: 10/02/24 FINDINGS: Lines and Tubes: Endotracheal tube and enteric catheter in satisfactory position. 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 Lungs: Left lower lobe airspace disease. Pleura: No effusion. No pneumothorax. Cardiomediastinal contours: Unremarkable Bones: Unremarkable IMPRESSION: Lines and tubes in satisfactory position. No significant interval change.
--- NOTE | 2024-10-04 12:20 | MEDREC ---
[facility] Intervention Section I [facility] Intervention: Review courses of therapy (PATIENT HAS QT PROLONGATION (QTc 589 ON 10/02). IF PNEUMONIA IS A CONCERN, PLEASE CONSIDER ADDING DOXYCYCLINE AND CHANGING DOSE OF CEFTRIAXONE FROM 2 GRAM TO 1 GRAM DAILY ) ION FUNEZ Oct 04, 2024 12:20
--- NOTE | 2024-10-04 14:34 | DVHINCON2 ---
Date of service: Oct 04, 2024 Referring Physician Neeru Lira MD Reason for Consultation Unresponsiveness History of Present Illness Patient is an 83-year-old male seen for evaluation regarding unresponsiveness.The patient was apparently in his usual state of health until the night of admission when while having dinner, he became short of breath, subsequently became unresponsive. Paramedics were called, who found the patient to be in impending respiratory failure. Observed to be hypoxic and hypotensive and was brought to [facility] emergency room for further evaluation. He was eventually intubated and put on ventilator support. Initial head CT scan performed on admission was unremarkable for acute pathology. Subsequently admitted and currently being treated for pneumonia/sepsis/improved septic shock. Vasopressor support has been weaned off. Past Medical History Significant for reported dementia, hypertension. Past Surgical History Status post ventriculoperitoneal shunt placement Allergies: Coded Allergies: NO KNOWN ALLERGIES (Unverified , 10/02/24) Current Medications Current Medications Medications (Trade) Dose Ordered Sig/Larissa Route PRN Reason Start Time Stop Time Status Last Admin Hydralazine HCl (Apresoline Injection) 20 mg Q4HR PRN IV SBP>160 10/03/24 22:15 10/03/24 22:19 Review of Systems Unobtainable. Vital Signs Vital Signs Date Time Temp Pulse Resp B/P (MAP) Pulse Ox O2 Delivery O2 Flow Rate FiO2 10/04/24 14:15 83 16 114/68 (83) 100 10/04/24 14:00 30 10/04/24 14:00 98.6 98.6 10/04/24 10:00 Mechanical Ventilator Physical Exam Mental status: The patient is sedated, best responses grimace, slight purposeful withdrawal of upper limbs to pain. Cranial nerves II through XII: Pupils are 2 to 3 mm sluggish. Corneal reflexes present bilaterally. Doll's eye reflex present. Gag reflex is present. Motor examination: At least 1+/5 movements of upper limbs to pain. Sensory examination: Perceives pain at all limbs. Deep tendon reflexes: Absent all over. Labs/Diagnostic Data Labs Test 10/04/24 07:06 10/04/24 03:17 10/03/24 05:26 10/03/24 01:10 Range/Units Blood Gas Specimen Type Arterial Blood Gas Sample Site Right radial Blood Gas Patient Temperature 37.0 Arterial Blood Date Drawn [id number] Arterial Blood pH 7.414 7.350-7.450 Arterial Blood Partial Pressure CO2 36.2 35.0-48.0 mmHg Arterial Blood Partial Pressure O2 122.2 H 83.0-108.0 mmHg Arterial Blood HCO3 22.6 21.0-28.0 mmol/L Arterial Blood Oxygen Saturation 98.2 H 94.0-98.0 % Arterial Blood Base Excess -1.5 -2.0-3.0 mmol/L Arterial Blood Oxyhemoglobin 97.6 94.0-98.0 % Arterial Blood Carboxyhemoglobin 0.3 L 0.5-1.5 % Arterial Blood Methemoglobin 0.3 0.0-1.5 % Jordon Test Modified Blood Gas Total Hemoglobin 13.00 L 13.5-17.5 g/dL Blood Gas Set Respiration Rate 18.0 Blood Gas Modality Vent - ac FiO2 % 30.0 Blood Gas Tidal Volume 450.0 Blood Gas PEEP or CPAP 5.0 White Blood Count 11.8 H 4.4-10.8 10^3/uL Red Blood Count 3.82 L 4.5-5.90 10^6/uL Hemoglobin 11.9 L 13.5-17.5 g/dL Hematocrit 34.6 L 41.0-53.0 % Mean Corpuscular Volume 90.6 80.0-100.0 fL Mean Corpuscular Hemoglobin 31.1 28.0-32.0 pg Mean Corpuscular Hemoglobin Concent 34.3 32.0-36.0 g/dL Red Cell Distribution Width 13.8 11.8-14.3 % Platelet Count 256 140-450 10^3/uL Mean Platelet Volume 7.9 6.9-10.8 fL Neutrophils (%) (Auto) 37.0-80.0 % Lymphocytes (%) (Auto) 10.0-50.0 % Monocytes (%) (Auto) 0.0-12.0 % Basophils (%) (Auto) 0.0-2.0 % Neutrophils # (Auto) 1.6-8.6 10 ^3/uL Lymphocytes # (Auto) 0.4-5.4 10 ^3/uL Monocytes # (Auto) 0-1.3 10 ^3/uL Differential Total Cells Counted 100.0 100 Neutrophils % (Manual) 98 H 37.0-80.0 Band Neutrophils % (Manual) 0 Lymphocytes % (Manual) 2 L 10.0-50.0 Monocytes % (Manual) 0 0-12 Eosinophils % (Manual) 0 0-7 Basophils % (Manual) 0 0.0-2.0 Metamyelocytes % (manual) 0 Myelocytes % (Manual) 0 Promyelocytes % (Manual) 0 Blast Cells % (Manual) 0 Reactive Lymphocytes 0 Platelet Estimate Adequate Sodium Level 143 136-145 mmol/L Potassium Level 3.7 3.5-5.1 mmol/L Chloride Level 111 H 98-107 mmol/L Carbon Dioxide Level 24 20-31 mmol/L Anion Gap 8 5-15 Blood Urea Nitrogen 16 9-23 mg/dL Creatinine 0.87 0.700-1.30 mg/dL Glomerular Filtration Rate Calc 87 >90 mL/min BUN/Creatinine Ratio 18.4 10.0-20.0 Serum Glucose 171 H 74-106 mg/dL Calcium Level 9.4 8.7-10.4 mg/dL Magnesium Level 2.0 1.6-2.6 mg/dL Total Bilirubin 0.4 0.2-1.0 mg/dL Aspartate Amino Transferase (AST) 8 L 13-40 U/L Alanine Aminotransferase (ALT) 9 7-40 U/L Alkaline Phosphatase 56 46-116 U/L Total Protein 5.7 5.7-8.2 g/dL Albumin 3.4 3.2-4.8 g/dL Eosinophils (%) (Auto) 1.0 0.0-7.0 % Eosinophils # (Auto) 0.1 0-0.8 10 ^3/uL Basophils # (Auto) 0.1 0-0.2 10 ^3/uL Nucleated Red Blood Cells 0.1 % Lactic Acid Level 1.2 0.4-2.0 mmol/L Test 10/03/24 00:26 10/02/24 21:38 10/02/24 21:04 Range/Units Troponin I High Sensitivity 3 L </=54 ng/L Urine Color Yellow Yellow Urine Clarity Clear Clear Urine pH 5.5 5.0-9.0 Urine Specific [place] 1.024 1.001-1.035 Urine Protein Trace H Negative Urine Ketones Negative Negative Urine Blood Trace H Negative /uL Urine Nitrite Negative Negative Urine Bilirubin Negative Negative Urine Urobilinogen 2 H Negative mg/dL Urine Leukocyte Esterase Negative Negative /uL Urine RBC 1 0 - 3 /hpf Urine WBC 1 0 - 3 /hpf Urine Squamous Epithelial Cells Few <5 /hpf Urine Bacteria None seen None Seen /hpf Urine Hyaline Casts Few 0 - 2 /lpf Urine Mucus Few None Seen Urine Glucose Normal Normal mg/dL B-Type Natriuretic Peptide 37.62 0-100 pg/mL Lipase 29 12-53 U/L Microbiology Date/Time Source Procedure Growth Status 10/04/24 02:40 Nose MRSA Screen - Final Complete 10/03/24 09:08 Urine - [place] Urine Culture - Preliminary Resulted 10/03/24 01:10 Blood Blood Culture - Preliminary NO GROWTH AFTER 24 HOURS OF INCUBATION. Resulted Assessment Acute respiratory failure Acute septic/toxicmetabolic encephalopathy Pneumonia Improved shock state Suggest that an EEG study be performed to evaluate for occult electrical seizure activity. Suggest that head CT scan be repeated to screen for progressing intracranial pathology not seen on initial head CT. Although the patient does have an implanted PROPERTY SPECIALIST shunt in place, there does not appear to be any distinct indicators of progressing hydrocephalus currently (disagree with radiology reading of possible transependymal fluid transudation, indicative of shunt failure). Will follow. Plan discussed with: Other (RN, Dr Lira) LASHAUN FORBES MD Oct 04, 2024 14:34
--- NOTE | 2024-10-04 14:45 | DVHPN2 ---
Progress Note - Dictate Date Seen: Oct 04, 2024 Medical Necessity Reason Pt with a Central, PICC or Fol: Yes Subjective Patient intubated and sedated. vital signs Vital Sign Date Time Temp Pulse Resp B/P (MAP) Pulse Ox O2 Delivery O2 Flow Rate FiO2 10/04/24 14:27 80 18 114/68 (83) 100 30 10/04/24 14:00 98.6 98.6 10/04/24 10:00 Mechanical Ventilator Total Intake and Output 10/03/24 10/03/24 10/04/24 15:00 23:00 07:00 Intake Total 1106 ml 72 ml 82.00 ml Output Total 400 ml 295 ml Balance 1106 ml -328 ml -213.00 ml medications Current Medications Medications Dose Ordered Sig/Larissa Route Start Time Stop Time Status Last Admin Dose Admin Midazolam HCl 50 ml @ 1 mls/hr Q24H IV 10/02/24 23:00 10/04/24 14:29 4 MLS/HR Nitroglycerin 0.4 mg Q5MINP PRN SL 10/03/24 01:45 Morphine Sulfate 2 mg Q30M PRN IV 10/03/24 01:45 Albuterol 2.5 mg Q6HR NEB 10/03/24 06:00 10/04/24 11:51 2.5 MG Ipratropium Solen 0.5 mg Q6HP NEB 10/03/24 06:00 10/04/24 11:51 0.5 MG Ondansetron HCl 4 mg Q6HPRN PRN IV 10/03/24 01:45 Norepinephrine Bitartrate 250 ml @ 3.75 mls/hr Q24H IV 10/03/24 03:00 10/04/24 03:16 3.75 MLS/HR Ceftriaxone Sodium/Dextrose 50 ml @ 50 mls/hr DAILY IV 10/03/24 10:00 10/04/24 09:52 50 MLS/HR Hydralazine HCl 20 mg Q4HR PRN IV 10/03/24 22:15 10/03/24 22:19 20 MG objective General appearance: No acute distress Respiratory: Lungs clear to auscultation. No wheezing, crackles Cardiovascular: Regular rate and rhythm, no murmurs. No edema Abdomen: Soft, nondistended, nontender, bowel sounds present MSK: Normal range of motion. Neuro: sedated laboratory and microbiology Laboratory Tests 10/04/24 03:17 Test 10/04/24 03:17 Range/Units Serum Glucose 171 H 74-106 mg/dL Problem List 1. Acute Respiratory Failure Assessment/Plan -Continue cardiopulmonary monitoring. -Daily SAT and SBT -Daily chest x-ray and ABG -Neurology consulted given unclear timeline patient was unresponsive/hypoxic -Pulmonary consulted for vent management -Will plan to start tube feeds if not extubated today -Protonix 40 mg IV daily -DVT prophylaxis Plan discussed with: Other DEEPA LUNA DO Oct 04, 2024 14:45
[2024-10-04] MEDS: PANTOPRAZOLE 40 MG/10 ML VIAL INJ IV SCH (20:27)
--- NOTE | 2024-10-04 21:40 | DVHINCON2 ---
Date of service: Oct 04, 2024 Referring Physician Basia Healy MD Reason for Consultation AHRF requiring mechanical ventilator. History of Present Illness An 83-year-old man with reported dementia, UTI being treated with antibiotics, was brought to the ED from home on 10/03/24 following episode of choking on food. Per EMS, patient choked on pizza, vomited and then became unresponsive. He was bagged en route and transported to the ED. ER intubated the patient since the patient was unresponsive. In addition, patient had hypotension and Levophed was ordered. All the information was obtained from EMS/ER MD. Patient was admitted for further care and pulmonary consultation is requested for evaluation and management of acute hypoxic respiratory failure requiring mechanical ventilator. Review of Systems: Unable to obtain due to intubated status. Past Medical History: Dementia, hypertension. 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 Allergies: No known drug allergies. Family History: No family history of premature CAD. No family history of lung disorders. Social History: Nonsmoker. No alcohol or illicit drug use. Allergies: Coded Allergies: NO KNOWN ALLERGIES (Unverified , 10/02/24) Current Medications Current Medications Medications (Trade) Dose Ordered Sig/Larissa Route PRN Reason Start Time Stop Time Status Last Admin Hydralazine HCl (Apresoline Injection) 20 mg Q4HR PRN IV SBP>160 10/03/24 22:15 10/03/24 22:19 Pantoprazole Sodium (Protonix) 40 mg DAILY IV 10/04/24 20:00 10/04/24 20:27 Heparin Sodium (Porcine) 5,000 units Q12HR SC 10/04/24 22:00 Vital Signs Vital Signs Date Time Temp Pulse Resp B/P (MAP) Pulse Ox O2 Delivery O2 Flow Rate FiO2 10/04/24 20:15 80 18 140/75 (96) 100 30 10/04/24 18:00 98.4 98.4 10/04/24 10:00 Mechanical Ventilator Physical Exam Gen.: Patient lying in bed in medical ICU. Sedated, intubated on mechanical ventilator. Head: Normocephalic, atraumatic. Eyes: PERRLA. Ears: Normal external anatomy. Throat: Endotracheal tube and orogastric tube in place. Neck: Supple, trachea midline. Chest: Transmitted breath sounds bilaterally. Decreased air entry bilaterally. No wheezing. Bibasilar crackles. Cardiovascular: Positive S1, positive S2. Regular rate and rhythm. Abdomen: Positive bowel sounds in all 4 quadrants. Soft, nontender, nondistended. : Venegas in place. Normal external genitalia. Rectal: Deferred. Skin: Warm, dry. Intact. Extremities: 2+ radial pulses bilaterally. No lower extremity edema. Neuro: Sedated. Labs/Diagnostic Data Labs Test 10/04/24 07:06 10/04/24 03:17 10/03/24 05:26 10/03/24 01:10 Range/Units Blood Gas Specimen Type Arterial Blood Gas Sample Site Right radial Blood Gas Patient Temperature 37.0 Arterial Blood Date Drawn [id number] Arterial Blood pH 7.414 7.350-7.450 Arterial Blood Partial Pressure CO2 36.2 35.0-48.0 mmHg Arterial Blood Partial Pressure O2 122.2 H 83.0-108.0 mmHg Arterial Blood HCO3 22.6 21.0-28.0 mmol/L Arterial Blood Oxygen Saturation 98.2 H 94.0-98.0 % Arterial Blood Base Excess -1.5 -2.0-3.0 mmol/L Arterial Blood Oxyhemoglobin 97.6 94.0-98.0 % Arterial Blood Carboxyhemoglobin 0.3 L 0.5-1.5 % Arterial Blood Methemoglobin 0.3 0.0-1.5 % Jordon Test Modified Blood Gas Total Hemoglobin 13.00 L 13.5-17.5 g/dL Blood Gas Set Respiration Rate 18.0 Blood Gas Modality Vent - ac FiO2 % 30.0 Blood Gas Tidal Volume 450.0 Blood Gas PEEP or CPAP 5.0 White Blood Count 11.8 H 4.4-10.8 10^3/uL Red Blood Count 3.82 L 4.5-5.90 10^6/uL Hemoglobin 11.9 L 13.5-17.5 g/dL Hematocrit 34.6 L 41.0-53.0 % Mean Corpuscular Volume 90.6 80.0-100.0 fL Mean Corpuscular Hemoglobin 31.1 28.0-32.0 pg Mean Corpuscular Hemoglobin Concent 34.3 32.0-36.0 g/dL Red Cell Distribution Width 13.8 11.8-14.3 % Platelet Count 256 140-450 10^3/uL Mean Platelet Volume 7.9 6.9-10.8 fL Neutrophils (%) (Auto) 37.0-80.0 % Lymphocytes (%) (Auto) 10.0-50.0 % Monocytes (%) (Auto) 0.0-12.0 % Basophils (%) (Auto) 0.0-2.0 % Neutrophils # (Auto) 1.6-8.6 10 ^3/uL Lymphocytes # (Auto) 0.4-5.4 10 ^3/uL Monocytes # (Auto) 0-1.3 10 ^3/uL Differential Total Cells Counted 100.0 100 Neutrophils % (Manual) 98 H 37.0-80.0 Band Neutrophils % (Manual) 0 Lymphocytes % (Manual) 2 L 10.0-50.0 Monocytes % (Manual) 0 0-12 Eosinophils % (Manual) 0 0-7 Basophils % (Manual) 0 0.0-2.0 Metamyelocytes % (manual) 0 Myelocytes % (Manual) 0 Promyelocytes % (Manual) 0 Blast Cells % (Manual) 0 Reactive Lymphocytes 0 Platelet Estimate Adequate Sodium Level 143 136-145 mmol/L Potassium Level 3.7 3.5-5.1 mmol/L Chloride Level 111 H 98-107 mmol/L Carbon Dioxide Level 24 20-31 mmol/L Anion Gap 8 5-15 Blood Urea Nitrogen 16 9-23 mg/dL Creatinine 0.87 0.700-1.30 mg/dL Glomerular Filtration Rate Calc 87 >90 mL/min BUN/Creatinine Ratio 18.4 10.0-20.0 Serum Glucose 171 H 74-106 mg/dL Calcium Level 9.4 8.7-10.4 mg/dL Magnesium Level 2.0 1.6-2.6 mg/dL Total Bilirubin 0.4 0.2-1.0 mg/dL Aspartate Amino Transferase (AST) 8 L 13-40 U/L Alanine Aminotransferase (ALT) 9 7-40 U/L Alkaline Phosphatase 56 46-116 U/L Total Protein 5.7 5.7-8.2 g/dL Albumin 3.4 3.2-4.8 g/dL Eosinophils (%) (Auto) 1.0 0.0-7.0 % Eosinophils # (Auto) 0.1 0-0.8 10 ^3/uL Basophils # (Auto) 0.1 0-0.2 10 ^3/uL Nucleated Red Blood Cells 0.1 % Lactic Acid Level 1.2 0.4-2.0 mmol/L Test 10/03/24 00:26 10/02/24 21:38 10/02/24 21:04 Range/Units Troponin I High Sensitivity 3 L </=54 ng/L Urine Color Yellow Yellow Urine Clarity Clear Clear Urine pH 5.5 5.0-9.0 Urine Specific [place] 1.024 1.001-1.035 Urine Protein Trace H Negative Urine Ketones Negative Negative Urine Blood Trace H Negative /uL Urine Nitrite Negative Negative Urine Bilirubin Negative Negative Urine Urobilinogen 2 H Negative mg/dL Urine Leukocyte Esterase Negative Negative /uL Urine RBC 1 0 - 3 /hpf Urine WBC 1 0 - 3 /hpf Urine Squamous Epithelial Cells Few <5 /hpf Urine Bacteria None seen None Seen /hpf Urine Hyaline Casts Few 0 - 2 /lpf Urine Mucus Few None Seen Urine Glucose Normal Normal mg/dL B-Type Natriuretic Peptide 37.62 0-100 pg/mL Lipase 29 12-53 U/L Microbiology Date/Time Source Procedure Growth Status 10/04/24 02:40 Nose MRSA Screen - Final Complete 10/03/24 09:08 Urine - [place] Urine Culture - Preliminary Resulted 10/03/24 01:10 Blood Blood Culture - Preliminary NO GROWTH AFTER 24 HOURS OF INCUBATION. 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 Plan: s/p intubation on mechanical ventilator. ABG reviewed, compensated. On AC mode; RR 18, VT 450, PEEP 5, FiO2 30%. Titrate FIO2 to keep O2 saturation above 90%. VAP bundle. Daily ABG and CXR while intubated Sedated for ventilator synchrony- On Versed drip F/u Neurology recommendations Continue antibiotics. F/u cultures. Start pressors if necessary to maintain a mean arterial blood pressure greater than 65 mmHg. Monitor renal function Monitor electrolytes. Supplement as necessary. Monitor ins and outs. Maintain euvolemia. GI prophylaxis. DVT prophylaxis. Prognosis: Poor given patient's multiple co-morbidities. Condition: Critical Rest of plan per hospitalist and other consultants. A total of 35 minutes of critical care time was spent reviewing the patient record, examining the patient, making a diagnostic and therapeutic plan, discussing this plan with the medical personnel, following up on diagnostic studies and following the patient for clinical stability excluding any and all procedures. At least 50% of this time was spent in direct, [id number] contact. Thank you Dr. Basia Healy MD, for allowing me to participate in this patient's care. Further recommendations will depend on the patient's clinical course. Please do not hesitate to contact me if you have any questions or concerns. This medical document was created using an electronic medical record system with [id number] dictation system. Although these documentations are being carefully reviewed, there may still be some phonetic and typographical changes. The errors are purely typographical, due to imperfection on the software program , and do not reflect any compromise in the patient's medical care. Plan discussed with: Other (Niraj Klein MD) TRUONG HARRIS MD Oct 04, 2024 21:40
--- NOTE | 2024-10-04 22:40 | DVH ---
EXAM: CT STROKE CTH INDICATION: Stroke TECHNIQUE: CT of the head without intravenous contrast. Radiation Dose Information: CT Dose: CTDI volume is 61.97 mGy. Dose-length product is 1221.17 mGy*cm The dose indicators for CT are the volume Computed Tomography (CT) Dose Index (CTDIvol) and the Dose Length Product (DLP), and are measured in units of mGy and mGy-cm, respectively. These indicators are not patient dose, but values generated from the CT scanner acquisition factors. The report includes radiation exposure data for exposures received during this examination. COMPARISON: CT HEAD WITHOUT CONTRAST on DOS: 10/03/24 FINDINGS: There is no evidence of acute intracranial hemorrhage, extra-axial collection, mass effect, midline s hift, herniation or hydrocephalus. The ventricles, sulci and cisterns are age appropriate. [employer] MAGISTRATE shunt in place from the right frontal skul l with the tip in the anterior horn of the right lateral ventricle. The hanson-white differentiation is intact. Patchy periventricular and subcortical white matter hypoattenuation is nonspecific but may be related to small vessel ischemic disease. The visualized paranasal sinuses and mastoid air cells are clear. The surrounding soft tissues and osseous structures are unremarkable. IMPRESSION: 1. Ventricular peritoneal shunt tube in place. Not significantly changed in position from 10/03/2024. 2. No acute intracranial hemorrhage. 3. No CT findings of territorial ischemia. 4. Periventricular tissue does not appear significantly changed.
[2024-10-04] MEDS: HEPARIN SODIUM (PORCINE) 5000 UNITS/ML 1ML VIAL SC SCH (22:48)
[2024-10-05] VITALS (108 sets, daily range): BP systolic 101–171; BP diastolic 57–95; PULSE 71–105; RESP 14–22; TEMP 98.1–99.1; O2SAT 99–100
[2024-10-05 03:38] LABS: Basophils # (auto) 0.1 10 ^3/uL (0-0.2); Basophils % (auto) 0.3 % (0.0-2.0); Eosinophils # (auto) 0 10 ^3/uL (0-0.8); Hematocrit 37.4 % (41.0-53.0); Hemoglobin 12.8 g/dL (13.5-17.5); Lymphocytes # (auto) 1.5 10 ^3/uL (0.4-5.4); Lymphocytes % (auto) 7.5 % (10.0-50.0); Mean Corpuscular Hemoglobin 30.8 pg (28.0-32.0); Mean Corpuscular Hgb Conc. 34.1 g/dL (32.0-36.0); Mean Corpuscular Volume 90.2 fL (80.0-100.0); Monocytes # (auto) 1.6 10 ^3/uL (0-1.3); Monocytes % (auto) 8.1 % (0.0-12.0); Neutrophils # (auto) 16.6 10 ^3/uL (1.6-8.6); Neutrophils % (auto) 84.1 % (37.0-80.0); Nucleated Red Blood Cells % 0.1 %; Platelet Count (auto) 284 10^3/uL (140-450); Red Blood Cells 4.14 10^6/uL (4.5-5.90); Red Cell Distribution Width 13.6 % (11.8-14.3); White Blood Cell 19.8 10^3/uL (4.4-10.8)
[2024-10-05 03:48] LABS: Alanine Aminotransferase 12 U/L (7-40); Alkaline Phosphatase 57 U/L (46-116); Anion Gap 8 (5-15); BUN/Creatinine Ratio 24.8 (10.0-20.0); Blood Urea Nitrogen 25 mg/dL (9-23); Carbon Dioxide 27 mmol/L (20-31); Chloride 111 mmol/L (98-107); Glucose 104 mg/dL (74-106); Magnesium 2.2 mg/dL (1.6-2.6); Potassium 3.8 mmol/L (3.5-5.1); Sodium 146 mmol/L (136-145)
[2024-10-05 03:49] LABS: Albumin 3.7 g/dL (3.2-4.8)
[2024-10-05 03:50] LABS: Aspartate Aminotransferase 10 U/L (13-40); Bilirubin, Total 0.3 mg/dL (0.2-1.0); Total Protein 6.2 g/dL (5.7-8.2)
--- NOTE | 2024-10-05 05:47 | DVH ---
CHEST RADIOGRAPH Indication:patient intubated Technique: Single frontal view of the chest was obtained COMPARISON: XY CHEST PORTABLE on DOS: 10/04/24, XY CHEST XRAY 1 VIEW on DOS: 10/02/24 FINDINGS: Lines and Tubes: Endotracheal tube and enteric catheter in satisfactory position. Presumed NEWS REPORTER shunt c atheter tubing overlies the right chest. Lungs: Clear Pleura: No effusion. No pneumothorax. Cardiomediastinal contours: Unremarkable Bones: Unremarkable IMPRESSION: Lines and tubes in satisfactory position. No significant interval change.
[2024-10-05] MEDS: SOD CHL 0.45% 1,000 ML IV SCH (11:16)
--- NOTE | 2024-10-05 14:41 | DVHPN2 ---
Progress Note - Dictate Date Seen: Oct 05, 2024 Medical Necessity Reason Pt with a Central, PICC or Fol: Yes Subjective Patient intubated and sedated. vital signs Vital Sign Date Time Temp Pulse Resp B/P (MAP) Pulse Ox O2 Delivery O2 Flow Rate FiO2 10/05/24 14:14 91 18 116/76 (89) 100 30 10/05/24 13:00 98.6 98.6 10/05/24 10:00 Mechanical Ventilator Total Intake and Output 10/04/24 10/04/24 10/05/24 15:00 23:00 07:00 Intake Total 92 ml 32 ml 37 ml Output Total 200 ml 50 ml Balance 92 ml -168 ml -13 ml medications Current Medications Medications Dose Ordered Sig/Larissa Route Start Time Stop Time Status Last Admin Dose Admin Midazolam HCl 50 ml @ 1 mls/hr Q24H IV 10/02/24 23:00 10/05/24 12:07 6 MLS/HR Nitroglycerin 0.4 mg Q5MINP PRN SL 10/03/24 01:45 Morphine Sulfate 2 mg Q30M PRN IV 10/03/24 01:45 Albuterol 2.5 mg Q6HR NEB 10/03/24 06:00 10/05/24 12:06 2.5 MG Ipratropium [place] 0.5 mg Q6HP NEB 10/03/24 06:00 10/05/24 12:06 0.5 MG Ondansetron HCl 4 mg Q6HPRN PRN IV 10/03/24 01:45 Norepinephrine Bitartrate 250 ml @ 3.75 mls/hr Q24H IV 10/03/24 03:00 10/04/24 03:16 3.75 MLS/HR Ceftriaxone Sodium/Dextrose 50 ml @ 50 mls/hr DAILY IV 10/03/24 10:00 10/05/24 09:40 50 MLS/HR Hydralazine HCl 20 mg Q4HR PRN IV 10/03/24 22:15 10/05/24 02:08 20 MG Pantoprazole Sodium 40 mg DAILY IV 10/04/24 20:00 10/05/24 09:39 40 MG Heparin Sodium (Porcine) 5,000 units Q12HR SC 10/04/24 22:00 10/05/24 09:40 5,000 UNITS Sodium Chloride 1,000 ml @ 100 mls/hr Q10H IV 10/05/24 10:15 10/05/24 11:16 100 MLS/HR objective General appearance: No acute distress Respiratory: Lungs clear to auscultation. No wheezing, crackles Cardiovascular: Regular rate and rhythm, no murmurs. No edema Abdomen: Soft, nondistended, nontender, bowel sounds present MSK: Normal range of motion. Neuro: sedated laboratory and microbiology Laboratory Tests 10/05/24 03:00 Test 10/05/24 03:00 Range/Units Serum Glucose 104 74-106 mg/dL Problem List 1. Acute Respiratory Failure likely due to Aspiration 2. 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 Dementia Assessment/Plan -Continue cardiopulmonary monitoring. -Daily SAT and SBT -Daily chest x-ray and ABG -Neurology consulted. Repeat CT brain WO contrast shows no acute changes. -EEG pending -Plan to do SAT once EEG returns -Pulmonary consulted for vent management -Will plan to start tube feeds later this afternoon -ID consulted due to rising WBC. Cutlures negative, no fevers. -1/2 NS started @ 100ml/hr for hypernatremia -Protonix 40 mg IV daily -DVT prophylaxis -DNR per daughterChristina Dietary Evaluation Review Comments: 1. If pt extubated, follow S/P for regular PO diet texture recommendations 2. If not extubated, start Jevity 1.2 @10ml/hr and increase 10ml/hr Q Shift till goal of 50ml/hr 1440 Kcal 67g Protein 968ml Free Water Expected Outcomes/Goals: 1. pt will consume >75% of estimated needs within 3-5 days Plan discussed with: Carlo BARRIGAPreciousMELANIEDEEPAKo Lee DO Oct 05, 2024 14:41
--- NOTE | 2024-10-05 18:52 | DVHPN2 ---
Progress Note - Dictate Date Seen: Oct 05, 2024 Medical Necessity Reason Pt with a Central, PICC or Fol: Yes Subjective Seen in ICU with no acute neurological issues noted. Remains intubated, on ventilator support, on Versed for sedation. No acute neurological issues observed overnight. Worsening leukocytosis noted on labs. Repeat head CT scan performed was negative for any acute pathology. vital signs Vital Sign Date Time Temp Pulse Resp B/P (MAP) Pulse Ox O2 Delivery O2 Flow Rate FiO2 10/05/24 18:45 87 18 124/72 (89) 100 10/05/24 18:00 98.8 98.8 10/05/24 18:00 30 10/05/24 10:00 Mechanical Ventilator Total Intake and Output 10/04/24 10/04/24 10/05/24 15:00 23:00 07:00 Intake Total 92 ml 32 ml 37 ml Output Total 200 ml 50 ml Balance 92 ml -168 ml -13 ml medications Current Medications Medications Dose Ordered Sig/Larissa Route Start Time Stop Time Status Last Admin Dose Admin Midazolam HCl 50 ml @ 1 mls/hr Q24H IV 10/02/24 23:00 10/05/24 12:07 6 MLS/HR Nitroglycerin 0.4 mg Q5MINP PRN SL 10/03/24 01:45 Morphine Sulfate 2 mg Q30M PRN IV 10/03/24 01:45 Albuterol 2.5 mg Q6HR NEB 10/03/24 06:00 10/05/24 12:06 2.5 MG Ipratropium [place] 0.5 mg Q6HP NEB 10/03/24 06:00 10/05/24 12:06 0.5 MG Ondansetron HCl 4 mg Q6HPRN PRN IV 10/03/24 01:45 Norepinephrine Bitartrate 250 ml @ 3.75 mls/hr Q24H IV 10/03/24 03:00 10/04/24 03:16 3.75 MLS/HR Ceftriaxone Sodium/Dextrose 50 ml @ 50 mls/hr DAILY IV 10/03/24 10:00 10/05/24 09:40 50 MLS/HR Hydralazine HCl 20 mg Q4HR PRN IV 10/03/24 22:15 10/05/24 02:08 20 MG Pantoprazole Sodium 40 mg DAILY IV 10/04/24 20:00 10/05/24 09:39 40 MG Heparin Sodium (Porcine) 5,000 units Q12HR SC 10/04/24 22:00 10/05/24 09:40 5,000 UNITS Sodium Chloride 1,000 ml @ 100 mls/hr Q10H IV 10/05/24 10:15 10/05/24 11:16 100 MLS/HR Enteral Nutritional Formula 1,000 ml 40ML/HR GT 10/05/24 17:30 objective Mental status: The patient is sedated, best response is grimace and slight purposeful withdrawal of upper limbs to pain. Cranial nerves II through XII: Pupils are 2 to 3 mm sluggish reactive to light. Corneal reflexes present. Doll's eye reflex is present. No gross facial asymmetry seen. Motor examination: At least 1+/5 movements of upper limbs to pain. Sensory examination: Appears to perceive pain at all limbs. laboratory and microbiology Laboratory Tests 10/05/24 03:00 Test 10/05/24 03:00 Range/Units Serum Glucose 104 74-106 mg/dL Assessment/Plan Acute respiratory failure Acute septic/toxicmetabolic encephalopathy Pneumonia Improved shock state Await EEG to evaluate for occult electrical seizure activity. Management of concurrent active medical problems potentially contributing to encephalopathy deferred to other specialty services. Will follow. Dietary Evaluation Review Comments: 1. If pt extubated, follow S/P for regular PO diet texture recommendations 2. If not extubated, start Jevity 1.2 @10ml/hr and increase 10ml/hr Q Shift till goal of 50ml/hr 1440 Kcal 67g Protein 968ml Free Water Expected Outcomes/Goals: 1. pt will consume >75% of estimated needs within 3-5 days LASHAUN FORBES MD Oct 05, 2024 18:52
--- NOTE | 2024-10-05 21:21 | DVHPN2 ---
Progress Note - Dictate Date Seen: Oct 05, 2024 Medical Necessity Reason Pt with a Central, PICC or Fol: Yes The following are medically ne: Moody Catheter Reason for moody catheter: Strict I&O Subjective Patient seen and examined at bedside. Sedated, intubated on mechanical ventilator. Overnight events reviewed. vital signs Vital Sign Date Time Temp Pulse Resp B/P (MAP) Pulse Ox O2 Delivery O2 Flow Rate FiO2 10/05/24 20:51 19 143/75 100 50.0 30 10/05/24 20:23 86 10/05/24 18:00 98.8 98.8 10/05/24 10:00 Mechanical Ventilator Total Intake and Output 10/04/24 10/04/24 10/05/24 15:00 23:00 07:00 Intake Total 92 ml 32 ml 37 ml Output Total 200 ml 50 ml Balance 92 ml -168 ml -13 ml medications Current Medications Medications Dose Ordered Sig/Larissa Route Start Time Stop Time Status Last Admin Dose Admin Midazolam HCl 50 ml @ 1 mls/hr Q24H IV 10/02/24 23:00 10/05/24 20:16 6 MLS/HR Nitroglycerin 0.4 mg Q5MINP PRN SL 10/03/24 01:45 Morphine Sulfate 2 mg Q30M PRN IV 10/03/24 01:45 Albuterol 2.5 mg Q6HR NEB 10/03/24 06:00 10/05/24 19:01 2.5 MG Ipratropium [place] 0.5 mg Q6HP NEB 10/03/24 06:00 10/05/24 19:01 0.5 MG Ondansetron HCl 4 mg Q6HPRN PRN IV 10/03/24 01:45 Norepinephrine Bitartrate 250 ml @ 3.75 mls/hr Q24H IV 10/03/24 03:00 10/04/24 03:16 3.75 MLS/HR Ceftriaxone Sodium/Dextrose 50 ml @ 50 mls/hr DAILY IV 10/03/24 10:00 10/05/24 09:40 50 MLS/HR Hydralazine HCl 20 mg Q4HR PRN IV 10/03/24 22:15 10/05/24 02:08 20 MG Pantoprazole Sodium 40 mg DAILY IV 10/04/24 20:00 10/05/24 09:39 40 MG Heparin Sodium (Porcine) 5,000 units Q12HR SC 10/04/24 22:00 10/05/24 09:40 5,000 UNITS Sodium Chloride 1,000 ml @ 100 mls/hr Q10H IV 10/05/24 10:15 10/05/24 11:16 100 MLS/HR Enteral Nutritional Formula 1,000 ml 40ML/HR GT 10/05/24 17:30 objective Gen.: Patient lying in bed in medical ICU. Sedated, intubated on mechanical ventilator. Head: Normocephalic, atraumatic. Eyes: PERRLA. Ears: Normal external anatomy. Throat: Endotracheal tube and orogastric tube in place. Neck: Supple, trachea midline. Chest: Transmitted breath sounds bilaterally. Decreased air entry bilaterally. No wheezing. Bibasilar crackles. Cardiovascular: Positive S1, positive S2. Regular rate and rhythm. Abdomen: Positive bowel sounds in all 4 quadrants. Soft, nontender, nondistended. : Moody in place. Normal external genitalia. Rectal: Deferred. Skin: Warm, dry. Intact. Extremities: 2+ radial pulses bilaterally. No lower extremity edema. Neuro: Sedated. 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 Events: Remains on vent support On AC mode; RR 18, VT 450, PEEP 5, FiO2 30%. Modified code - OK for re-intubation Obtain EEG in the AM. Neurology wants to perform EEG prior to weaning Sedated on Versed IV fluids at 100 ml/hr Monitor renal function Labs and imaging reviewed. Rest of plan as noted below. Plan: s/p intubation on mechanical ventilator. ABG reviewed, compensated. On AC mode; RR 18, VT 450, PEEP 5, FiO2 30%. Titrate FIO2 to keep O2 saturation above 90%. VAP bundle. Daily ABG and CXR while intubated Sedated for ventilator synchrony- On Versed drip F/u Neurology recommendations Continue antibiotics. F/u cultures. Start pressors if necessary to maintain a mean arterial blood pressure greater than 65 mmHg. Monitor renal function Monitor electrolytes. Supplement as necessary. Monitor ins and outs. Maintain euvolemia. GI prophylaxis. DVT prophylaxis. Prognosis: Poor given patient's multiple co-morbidities. Condition: Critical Rest of plan per hospitalist and other consultants. A total of 35 minutes of critical care time was spent reviewing the patient record, examining the patient, making a diagnostic and therapeutic plan, discussing this plan with the medical personnel, following up on diagnostic studies and following the patient for clinical stability excluding any and all procedures. At least 50% of this time was spent in direct, [id number] contact. Thank you Dr. Basia Healy MD, for allowing me to participate in this patient's care. Further recommendations will depend on the patient's clinical course. Please do not hesitate to contact me if you have any questions or concerns. This medical document was created using an electronic medical record system with [employer] dictation system. Although these documentations are being carefully reviewed, there may still be some phonetic and typographical changes. The errors are purely typographical, due to imperfection on the software program, and do not reflect any compromise in the patient's medical care. Dietary Evaluation Review Comments: 1. If pt extubated, follow S/P for regular PO diet texture recommendations 2. If not extubated, start Jevity 1.2 @10ml/hr and increase 10ml/hr Q Shift till goal of 50ml/hr 1440 Kcal 67g Protein 968ml Free Water Expected Outcomes/Goals: 1. pt will consume >75% of estimated needs within 3-5 days Plan discussed with: Other (NIRANJAN Richter) Critical Care Time(min): 35 TRUONG HARRIS MD Oct 05, 2024 21:21
[2024-10-05] MEDS: Jevity 1.2 Cal/Fiber 1 Liter GT SCH (21:44)
[2024-10-06] VITALS (107 sets, daily range): BP systolic 94–163; BP diastolic 47–102; PULSE 68–102; RESP 12–25; TEMP 98.1–100.9; O2SAT 93–100
[2024-10-06 07:35] LABS: Base Excess -0.4 mmol/L (-2.0-3.0)
--- NOTE | 2024-10-06 08:40 | DVHPN2 ---
Progress Note Date Seen: Oct 06, 2024 Medical Necessity Reason Pt with a Central, PICC or Fol: Yes Subjective Review of Systems: RESPIRATORY:Abnormal Objective vital signs Vital Sign Date Time Temp Pulse Resp B/P (MAP) Pulse Ox O2 Delivery O2 Flow Rate FiO2 10/06/24 08:03 71 20 144/85 (104) 100 30 10/06/24 07:00 98.2 98.2 10/06/24 06:00 Mechanical Ventilator+ 10/05/24 20:51 50.0 Total Intake and Output 10/05/24 10/05/24 10/06/24 14:59 22:59 06:59 Intake Total 373 ml 848 ml 988 ml Output Total 200 ml 300 ml Balance 373 ml 648 ml 688 ml medications Current Medications Medications Dose Ordered Sig/Larissa Route Start Time Stop Time Status Last Admin Dose Admin Midazolam HCl 50 ml @ 1 mls/hr Q24H IV 10/02/24 23:00 10/06/24 04:13 6 MLS/HR Nitroglycerin 0.4 mg Q5MINP PRN SL 10/03/24 01:45 Morphine Sulfate 2 mg Q30M PRN IV 10/03/24 01:45 Albuterol 2.5 mg Q6HR NEB 10/03/24 06:00 10/06/24 06:34 2.5 MG Ipratropium [place] 0.5 mg Q6HP NEB 10/03/24 06:00 10/06/24 06:34 0.5 MG Ondansetron HCl 4 mg Q6HPRN PRN IV 10/03/24 01:45 Norepinephrine Bitartrate 250 ml @ 3.75 mls/hr Q24H IV 10/03/24 03:00 10/04/24 03:16 3.75 MLS/HR Ceftriaxone Sodium/Dextrose 50 ml @ 50 mls/hr DAILY IV 10/03/24 10:00 10/05/24 09:40 50 MLS/HR Hydralazine HCl 20 mg Q4HR PRN IV 10/03/24 22:15 10/05/24 02:08 20 MG Pantoprazole Sodium 40 mg DAILY IV 10/04/24 20:00 10/05/24 09:39 40 MG Heparin Sodium (Porcine) 5,000 units Q12HR SC 10/04/24 22:00 10/05/24 21:35 5,000 UNITS Sodium Chloride 1,000 ml @ 100 mls/hr Q10H IV 10/05/24 10:15 10/06/24 07:03 100 MLS/HR Enteral Nutritional Formula 1,000 ml 40ML/HR GT 10/05/24 17:30 10/05/24 21:44 1,000 ML Examination: LUNGS:Abnormal laboratory and microbiology Laboratory Tests 10/05/24 03:00 Test 10/05/24 03:00 Range/Units Serum Glucose 104 74-106 mg/dL Microbiology Date/Time Source Procedure Growth Status 10/04/24 02:40 Nose MRSA Screen - Final Complete 10/03/24 09:08 Urine - [place] Urine Culture - Final Complete 10/03/24 01:10 Blood Blood Culture - Preliminary NO GROWTH AFTER 72 HOURS OF INCUBATION. Resulted Labs and/or images reviewed: Labs reviewed by me, Image(s) reviewed by me Problem List/Assessment/Plan Problem List/Assessment/Plan pulm 1 acute resp failure 2 m ventilation cxr and abg good plan once e e g is done d c sedation and c p a p 8/5do abg and call results Plan discussed with: Other Dietary Evaluation Review Comments: 1. If pt extubated, follow S/P for regular PO diet texture recommendations 2. If not extubated, start Jevity 1.2 @10ml/hr and increase 10ml/hr Q Shift till goal of 50ml/hr 1440 Kcal 67g Protein 968ml Free Water Expected Outcomes/Goals: 1. pt will consume >75% of estimated needs within 3-5 days Sepsis reassessment post fluid Respiratory Effort: ET Tube Breath sounds: Clear, Diminished NICHOLAS SAENZ MD Oct 06, 2024 08:40
--- NOTE | 2024-10-06 13:05 | DVHPN2 ---
Progress Note - Dictate Date Seen: Oct 06, 2024 Medical Necessity Reason Pt with a Central, PICC or Fol: Yes The following are medically ne: Moody Catheter Reason for moody catheter: Strict I&O Subjective Patient intubated and sedated. vital signs Vital Sign Date Time Temp Pulse Resp B/P (MAP) Pulse Ox O2 Delivery O2 Flow Rate FiO2 10/06/24 11:10 75 18 112/61 (78) 99 30 10/06/24 10:00 Mechanical Ventilator+ 10/06/24 08:00 98.2 98.2 10/05/24 20:51 50.0 Total Intake and Output 10/05/24 10/05/24 10/06/24 15:00 23:00 07:00 Intake Total 473 ml 848 ml 988 ml Output Total 200 ml 300 ml Balance 473 ml 648 ml 688 ml medications Current Medications Medications Dose Ordered Sig/Larissa Route Start Time Stop Time Status Last Admin Dose Admin Midazolam HCl 50 ml @ 1 mls/hr Q24H IV 10/02/24 23:00 10/06/24 04:13 6 MLS/HR Nitroglycerin 0.4 mg Q5MINP PRN SL 10/03/24 01:45 Morphine Sulfate 2 mg Q30M PRN IV 10/03/24 01:45 Albuterol 2.5 mg Q6HR NEB 10/03/24 06:00 10/06/24 11:10 2.5 MG Ipratropium [place] 0.5 mg Q6HP NEB 10/03/24 06:00 10/06/24 11:10 0.5 MG Ondansetron HCl 4 mg Q6HPRN PRN IV 10/03/24 01:45 Norepinephrine Bitartrate 250 ml @ 3.75 mls/hr Q24H IV 10/03/24 03:00 10/04/24 03:16 3.75 MLS/HR Ceftriaxone Sodium/Dextrose 50 ml @ 50 mls/hr DAILY IV 10/03/24 10:00 10/06/24 09:45 50 MLS/HR Hydralazine HCl 20 mg Q4HR PRN IV 10/03/24 22:15 10/05/24 02:08 20 MG Pantoprazole Sodium 40 mg DAILY IV 10/04/24 20:00 10/06/24 09:44 40 MG Heparin Sodium (Porcine) 5,000 units Q12HR SC 10/04/24 22:00 10/06/24 09:42 5,000 UNITS Sodium Chloride 1,000 ml @ 100 mls/hr Q10H IV 10/05/24 10:15 10/06/24 07:03 100 MLS/HR Enteral Nutritional Formula 1,000 ml 40ML/HR GT 10/05/24 17:30 10/05/24 21:44 1,000 ML objective General appearance: No acute distress Respiratory: Lungs clear to auscultation. No wheezing, crackles Cardiovascular: Regular rate and rhythm, no murmurs. No edema Abdomen: Soft, nondistended, nontender, bowel sounds present MSK: Normal range of motion. Neuro: sedated laboratory and microbiology Laboratory Tests 10/05/24 03:00 Test 10/05/24 03:00 Range/Units Serum Glucose 104 74-106 mg/dL Problem List 1. Acute Respiratory Failure likely due to Aspiration 2. 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 Dementia Assessment/Plan -Continue cardiopulmonary monitoring. -Daily SAT and SBT -Daily chest x-ray and ABG -Neurology consulted. Repeat CT brain WO contrast shows no acute changes. -EEG pending -Plan to do SAT once EEG returns -Pulmonary consulted for vent management -Will plan to start tube feeds later this afternoon -ID consulted due to rising WBC. Cutlures negative, no fevers. -1/2 NS started @ 125 ml/hr for hypernatremia that is worsening. UOP 300mL overnight -Protonix 40 mg IV daily -DVT prophylaxis -DNR per daughterChristina Dietary Evaluation Review Comments: 1. If pt extubated, follow S/P for regular PO diet texture recommendations 2. If not extubated, start Jevity 1.2 @10ml/hr and increase 10ml/hr Q Shift till goal of 50ml/hr 1440 Kcal 67g Protein 968ml Free Water Expected Outcomes/Goals: 1. pt will consume >75% of estimated needs within 3-5 days Plan discussed with: Other Respiratory Effort: ET Tube Breath sounds: Clear, Diminished DEEPA LUNA DO Oct 06, 2024 13:05
--- NOTE | 2024-10-06 16:08 | DVHEEG2 ---
Neurology EEG Procedural Note Procedural Note Patient status: Sedated Diagnosis: Acute encephalopathy rule out seizure. Conditions of recording: This is an 18 channel EEG recording with electrode placement following guidelines as per the 10/20 international classification. Photic stimulation was performed as activating procedure. Technical summary: The predominant activity throughout the entire recording appeared to be diffuse low amplitude low-frequency delta activity, poorly reactive to external stimulation, which appeared to be symmetrical. No definite epileptiform discharges or electrographic seizures were seen. Photic stimulation did not provide any further abnormalities. Impression: This appears to be abnormal EEG recording consistent with the presence of a severe diffuse nonspecific encephalopathic state and/or state of deep sedation. Clinical correlation is imperative LASHAUN FORBES MD Oct 06, 2024 16:08
[2024-10-06] MEDS: SOD CHL 0.45% 1,000 ML IV SCH (16:27)
--- NOTE | 2024-10-06 18:31 | DVHNC2 ---
Procedure - Bronchoscopy procedure note: Indications: Increased ET tube secretions, Possible mucous plugging. 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 Complications: None Procedure: Patient medications and allergies reviewed. The risks and benefits of the procedure and the sedation options and risk were discussed with the patient's healthcare proxy. All questions were answered and informed consent was obtained. Patient identification and proposed procedure were verified prior to the procedure by the physician, and a nurse, and the respiratory therapist in ICU room. The heart rate, respiratory rate, oxygen saturations, blood pressure, adequacy of pulmonary ventilation, and response to care were monitored throughout the procedure. The physical status of the patient was reassessed after the procedure. After obtaining informed consent, the bronchoscope was introduced through the endotracheal tube and advanced into the trachea bronchial tree of both lungs. The procedure was accomplished without difficulty. The patient tolerated the procedure well. Findings: The trachea is in normal caliber. The reno is sharp. The tracheobronchial tree of the right lung was examined to at least the first subsegmental level. The bronchial mucosa and anatomy in the right lung are normal. There are no endobronchial lesions. There was copious whitish secretions from right main stem bronchus onward throughout R4-R10. Right middle lobe (RML) Bronchoalveolar lavage (BAL) obtained. RML BAL sent for gram stain and culture, viral culture, and fungal culture. The left upper lobe, lingula, and left lower lobe were examined to at least the first subsegmental level. Bronchial mucosa and anatomy in the left upper lobe and lingula are normal. There were no endobronchial lesions. There was copious whitish secretions from left main stem bronchus onward throughout L6-L10. Mucous plugging removed from L6-L10. There was no active bleeding at the completion of the procedure. Estimated blood loss: Less than 5 mL. Impression: Bilateral lower lobe atelectasis due to mucous plugging Mucous plugging from L6-L10 and R4-R10 RML BAL performed Rule out aspiration of food contents Recommendation: Follow-up RML BAL results. Pulmonary toileting Procedure codes: 19669/82383, bronchoscopy, rigid and flexible, including fluoroscopic guidance, one performed; with bronchial endobronchial broncho- alveolar lavage, single or multiple sites TRUONG HARRIS MD Oct 06, 2024 18:31
[2024-10-07] VITALS (107 sets, daily range): BP systolic 86–148; BP diastolic 41–80; PULSE 73–99; RESP 10–26; TEMP 99–100.9; O2SAT 96–100
[2024-10-07 04:26] LABS: Calcium 8.9 mg/dL (8.7-10.4); Chloride 106 mmol/L (98-107); Potassium 3.9 mmol/L (3.5-5.1); Sodium 139 mmol/L (136-145)
[2024-10-07 04:27] LABS: Anion Gap 7 (5-15); Carbon Dioxide 26 mmol/L (20-31)
[2024-10-07 04:32] LABS: BUN/Creatinine Ratio 24.3 (10.0-20.0); Blood Urea Nitrogen 17 mg/dL (9-23); Glucose 90 mg/dL (74-106)
--- NOTE | 2024-10-07 08:50 | DVHPN2 ---
Progress Note Date Seen: Oct 07, 2024 Medical Necessity Reason Pt with a Central, PICC or Fol: Yes The following are medically ne: Moody Catheter Reason for moody catheter: Strict I&O Subjective Review of Systems: RESPIRATORY:Abnormal Objective vital signs Vital Sign Date Time Temp Pulse Resp B/P (MAP) Pulse Ox O2 Delivery O2 Flow Rate FiO2 10/07/24 08:08 82 23 102/64 (77) 100 30 10/07/24 07:00 99.1 99.1 10/07/24 06:00 Mechanical Ventilator+ 10/05/24 20:51 50.0 Total Intake and Output 10/06/24 10/06/24 10/07/24 15:00 23:00 07:00 Intake Total 898 ml 1048 ml 1213 ml Output Total 430 ml 500 ml Balance 898 ml 618 ml 713 ml medications Current Medications Medications Dose Ordered Sig/Larissa Route Start Time Stop Time Status Last Admin Dose Admin Midazolam HCl 50 ml @ 1 mls/hr Q24H IV 10/02/24 23:00 10/07/24 02:31 6 MLS/HR Nitroglycerin 0.4 mg Q5MINP PRN SL 10/03/24 01:45 Morphine Sulfate 2 mg Q30M PRN IV 10/03/24 01:45 Albuterol 2.5 mg Q6HR NEB 10/03/24 06:00 10/07/24 06:21 2.5 MG Ipratropium Brea 0.5 mg Q6HP NEB 10/03/24 06:00 10/07/24 06:21 0.5 MG Ondansetron HCl 4 mg Q6HPRN PRN IV 10/03/24 01:45 Norepinephrine Bitartrate 250 ml @ 3.75 mls/hr Q24H IV 10/03/24 03:00 10/04/24 03:16 3.75 MLS/HR Ceftriaxone Sodium/Dextrose 50 ml @ 50 mls/hr DAILY IV 10/03/24 10:00 10/06/24 09:45 50 MLS/HR Hydralazine HCl 20 mg Q4HR PRN IV 10/03/24 22:15 10/05/24 02:08 20 MG Pantoprazole Sodium 40 mg DAILY IV 10/04/24 20:00 10/06/24 09:44 40 MG Heparin Sodium (Porcine) 5,000 units Q12HR SC 10/04/24 22:00 10/06/24 20:56 5,000 UNITS Enteral Nutritional Formula 1,000 ml 40ML/HR GT 10/05/24 17:30 10/06/24 20:52 1,000 ML Sodium Chloride 1,000 ml @ 125 mls/hr Q8H IV 10/06/24 15:30 10/07/24 00:38 125 MLS/HR Examination: LUNGS:Abnormal laboratory and microbiology Laboratory Tests 10/07/24 03:51 10/05/24 03:00 Test 10/07/24 03:51 Range/Units Serum Glucose 90 74-106 mg/dL Microbiology Date/Time Source Procedure Growth Status 10/04/24 02:40 Nose MRSA Screen - Final Complete 10/03/24 09:08 Urine - [place] Urine Culture - Final Complete 10/03/24 01:10 Blood Blood Culture - Preliminary NO GROWTH AFTER 72 HOURS OF INCUBATION. Resulted Labs and/or images reviewed: Labs reviewed by me, Image(s) reviewed by me Problem List/Assessment/Plan Problem List/Assessment/Plan pulm 1 acute resp failure 2 m ventilation cxr and abg good plan once e e g is done d c sedation and c p a p 8/5do abg and call results pulm 10/07/24pt is vented off sedation now c p a p when awake and and continue med neb treatments Plan discussed with: Other My Orders My Orders Orders - NICHOLAS SAENZ MD Procedure Category Date Status Time Bronchosc Dx W/W/O BD 10/06/24 Transmitted Fluor&Wash 14:09 * Urology Consult CONS 10/07/24 Transmitted 08:42 Chest Portable XY 10/07/24 Verified 08:46 Dietary Evaluation Review Comments: 1. If pt extubated, follow S/P for regular PO diet texture recommendations 2. If not extubated, start Jevity 1.2 @10ml/hr and increase 10ml/hr Q Shift till goal of 50ml/hr 1440 Kcal 67g Protein 968ml Free Water Expected Outcomes/Goals: 1. pt will consume >75% of estimated needs within 3-5 days Sepsis reassessment post fluid Respiratory Effort: ET Tube Breath sounds: Clear, Crackles, Rhonchi, Diminished Skin Moisture: Moist NICHOLAS SAENZ MD Oct 07, 2024 08:50
--- NOTE | 2024-10-07 09:16 | DVH ---
CHEST RADIOGRAPH Indication: vented Technique: Single frontal view of the chest was obtained COMPARISON: XY CHEST PORTABLE on DOS: 10/05/24, XY CHEST PORTABLE on DOS: 10/04/24, XY CHEST XRAY 1 V IEW on DOS: 10/02/24 FINDINGS: Lines and Tubes: Endotracheal tube, enteric catheter in satisfactory position. POWDER [employer]PERATOR shunt catheter tub ing overlying the right chest. Lungs: Bilateral lower lobe airspace disease. Pleura: No effusion. No pneumothorax. Cardiomediastinal contours: Unremarkable Bones: Unremarkable IMPRESSION: Lines and tubes in satisfactory position. Increased bilateral lower lobe airspace disease.
--- NOTE | 2024-10-07 09:26 | DVHPN2 ---
Progress Note - Dictate Date Seen: Oct 06, 2024 Medical Necessity Reason Pt with a Central, PICC or Fol: Yes The following are medically ne: Moody Catheter Reason for moody catheter: Strict I&O Subjective Seen in ICU with no acute neurological issues noted. Remains intubated, on ventilator support, on Versed for sedation. No acute neurological issues observed overnight. EEG performed was unremarkable for seizure activity vital signs Vital Sign Date Time Temp Pulse Resp B/P (MAP) Pulse Ox O2 Delivery O2 Flow Rate FiO2 99.1 10/05/24 20:51 50.0 Total Intake and Output 10/06/24 10/06/24 15:00 23:00 Intake Total 898 ml 1048 ml Output Total 430 ml Balance 898 ml 618 ml medications Current Medications Medications Dose Ordered Sig/Larissa Route Start Time Stop Time Status Last Admin Dose Admin Midazolam HCl 50 ml @ 1 mls/hr Q24H IV 10/02/24 23:00 10/07/24 02:31 6 MLS/HR Nitroglycerin 0.4 mg Q5MINP PRN SL 10/03/24 01:45 Morphine Sulfate 2 mg Q30M PRN IV 10/03/24 01:45 Albuterol 2.5 mg Q6HR NEB 10/03/24 06:00 10/07/24 06:21 2.5 MG Ipratropium Avella 0.5 mg Q6HP NEB 10/03/24 06:00 10/07/24 06:21 0.5 MG Ondansetron HCl 4 mg Q6HPRN PRN IV 10/03/24 01:45 Norepinephrine Bitartrate 250 ml @ 3.75 mls/hr Q24H IV 10/03/24 03:00 10/04/24 03:16 3.75 MLS/HR Ceftriaxone Sodium/Dextrose 50 ml @ 50 mls/hr DAILY IV 10/03/24 10:00 10/06/24 09:45 50 MLS/HR Hydralazine HCl 20 mg Q4HR PRN IV 10/03/24 22:15 10/05/24 02:08 20 MG Pantoprazole Sodium 40 mg DAILY IV 10/04/24 20:00 10/06/24 09:44 40 MG Heparin Sodium (Porcine) 5,000 units Q12HR SC 10/04/24 22:00 10/06/24 20:56 5,000 UNITS Enteral Nutritional Formula 1,000 ml 40ML/HR GT 10/05/24 17:30 10/06/24 20:52 1,000 ML Sodium Chloride 1,000 ml @ 125 mls/hr Q8H IV 10/06/24 15:30 10/07/24 00:38 125 MLS/HR objective Mental status: The patient is sedated, best response is grimace and slight purposeful withdrawal of upper limbs to pain. Cranial nerves II through XII: Pupils are 2 to 3 mm sluggish reactive to light. Corneal reflexes present. Doll's eye reflex is present. No gross facial asymmetry seen. Motor examination: At least 1+/5 movements of upper limbs to pain. Sensory examination: Appears to perceive pain at all limbs. laboratory and microbiology Laboratory Tests 10/07/24 03:51 10/05/24 03:00 Test 10/07/24 03:51 Range/Units Serum Glucose 90 74-106 mg/dL Assessment/Plan Acute respiratory failure Acute septic/toxicmetabolic encephalopathy Pneumonia Improved shock state Can proceed with sedation and ventilator weaning plans if deemed appropriate by other serivces. Management of concurrent active medical problems potentially contributing to encephalopathy deferred to other specialty services. Will follow. Dietary Evaluation Review Comments: 1. If pt extubated, follow S/P for regular PO diet texture recommendations 2. If not extubated, start Jevity 1.2 @10ml/hr and increase 10ml/hr Q Shift till goal of 50ml/hr 1440 Kcal 67g Protein 968ml Free Water Expected Outcomes/Goals: 1. pt will consume >75% of estimated needs within 3-5 days Plan discussed with: Other (RN, Dr. Lira) Critical Care Time(min): 322 Respiratory Effort: ET Tube Breath sounds: Clear, Crackles, Rhonchi, Diminished Skin Moisture: Moist LASHAUN FORBES MD Oct 07, 2024 09:26
[2024-10-07 10:08] LABS: Basophils # (auto) 0 10 ^3/uL (0-0.2); Basophils % (auto) 0.2 % (0.0-2.0); Eosinophils # (auto) 0 10 ^3/uL (0-0.8); Eosinophils % (auto) 0.1 % (0.0-7.0); Hematocrit 34.7 % (41.0-53.0); Hemoglobin 11.8 g/dL (13.5-17.5); Lymphocytes # (auto) 0.5 10 ^3/uL (0.4-5.4); Lymphocytes % (auto) 3.5 % (10.0-50.0); Mean Corpuscular Hgb Conc. 33.9 g/dL (32.0-36.0); Mean Corpuscular Volume 91.4 fL (80.0-100.0); Monocytes # (auto) 1.1 10 ^3/uL (0-1.3); Monocytes % (auto) 8.1 % (0.0-12.0); Neutrophils # (auto) 11.5 10 ^3/uL (1.6-8.6); Neutrophils % (auto) 88.1 % (37.0-80.0); Nucleated Red Blood Cells % 0.1 %; Platelet Count (auto) 174 10^3/uL (140-450); Red Cell Distribution Width 13.4 % (11.8-14.3); White Blood Cell 13.1 10^3/uL (4.4-10.8)
[2024-10-07] MEDS: LIDOCAINE 2% JELLY 11ml (GLYDO) UR ONE (10:30)
[2024-10-07] MEDS: LIDOCAINE 2% JELLY 11ml (GLYDO) ONE (10:35)
[2024-10-07 11:24] LABS: Basophils # (auto) 0 10 ^3/uL (0-0.2); Basophils % (auto) 0.2 % (0.0-2.0); Eosinophils # (auto) 0.1 10 ^3/uL (0-0.8); Eosinophils % (auto) 0.6 % (0.0-7.0); Hematocrit 34.7 % (41.0-53.0); Hemoglobin 11.9 g/dL (13.5-17.5); Mean Corpuscular Hemoglobin 31.5 pg (28.0-32.0); Mean Corpuscular Hgb Conc. 34.3 g/dL (32.0-36.0); Mean Corpuscular Volume 91.9 fL (80.0-100.0); Monocytes % (auto) 8.8 % (0.0-12.0); Neutrophils # (auto) 8.9 10 ^3/uL (1.6-8.6); Neutrophils % (auto) 81.4 % (37.0-80.0); Nucleated Red Blood Cells % 0.1 %; Platelet Count (auto) 201 10^3/uL (140-450); Red Blood Cells 3.78 10^6/uL (4.5-5.90); Red Cell Distribution Width 13.3 % (11.8-14.3); White Blood Cell 10.9 10^3/uL (4.4-10.8)
--- NOTE | 2024-10-07 11:31 | DVHINCON2 ---
Date of service: Oct 07, 2024 Referring Physician hospitalist Reason for Consultation moody placement History of Present Illness History Source: RN Notes, MD Notes Exam Limitations: No limitations HPI 84 yo male admitted to ICU for respiratory failure after choking incident by which he became unresponsive. He had an indwelling moody on arrival. Staff attempted to exchange it and they were unable. Urology asked to assist Review of Systems Comments intubated H&P Exam Vital Signs Vital Signs Date Time Temp Pulse Resp B/P (MAP) Pulse Ox O2 Delivery O2 Flow Rate FiO2 10/07/24 10:21 77 18 106/55 (72) 100 30 10/07/24 08:00 Mechanical Ventilator+ 10/07/24 07:00 99.1 99.1 10/05/24 20:51 50.0 General Appeara: Well developed, Thin Mouth: Dry mouth Pulmonary/Respiratory: Other (intubated) Cardiovascular/Chest: Normal inspection Abdominal Exam: Normal bowel sounds, Soft, No tenderness, No hepatospenomegaly, No masses Rectal Exam: Deferred Male Genital Exam: Normal genitalia, Other (uncircumcised) Skin Exam: Normal inspection, Normal color, Warm/dry Labs/Xrays Labs Test 10/07/24 11:00 10/07/24 03:51 10/06/24 07:25 10/05/24 03:00 Range/Units Eosinophils (%) (Auto) 0.1 0.0-7.0 % Eosinophils # (Auto) 0 0-0.8 10 ^3/uL Basophils # (Auto) 0 0-0.2 10 ^3/uL Nucleated Red Blood Cells 0.1 % Sodium Level 139 # 136-145 mmol/L Potassium Level 3.9 3.5-5.1 mmol/L Chloride Level 106 98-107 mmol/L Carbon Dioxide Level 26 20-31 mmol/L Anion Gap 7 5-15 Blood Urea Nitrogen 17 9-23 mg/dL Creatinine 0.70 0.700-1.30 mg/dL Glomerular Filtration Rate Calc 92 >90 mL/min BUN/Creatinine Ratio 24.3 H 10.0-20.0 Serum Glucose 90 74-106 mg/dL Calcium Level 8.9 8.7-10.4 mg/dL Blood Gas Specimen Type Arterial Blood Gas Sample Site Left radial Blood Gas Patient Temperature 37.0 Arterial Blood Date Drawn [id number] Arterial Blood pH 7.402 7.350-7.450 Arterial Blood Partial Pressure CO2 39.8 35.0-48.0 mmHg Arterial Blood Partial Pressure O2 119.2 H 83.0-108.0 mmHg Arterial Blood HCO3 24.2 21.0-28.0 mmol/L Arterial Blood Oxygen Saturation 98.0 94.0-98.0 % Arterial Blood Base Excess -0.4 -2.0-3.0 mmol/L Arterial Blood Oxyhemoglobin 97.5 94.0-98.0 % Arterial Blood Carboxyhemoglobin 0.3 L 0.5-1.5 % Arterial Blood Methemoglobin 0.2 0.0-1.5 % Jordon Test Modified Blood Gas Total Hemoglobin 12.50 L 13.5-17.5 g/dL Blood Gas Set Respiration Rate 18.0 Blood Gas Modality Vent - ac FiO2 % 30.0 Blood Gas Tidal Volume 450.0 Blood Gas PEEP or CPAP 5.0 Magnesium Level 2.2 1.6-2.6 mg/dL Total Bilirubin 0.3 0.2-1.0 mg/dL Aspartate Amino Transferase (AST) 10 L 13-40 U/L Alanine Aminotransferase (ALT) 12 7-40 U/L Alkaline Phosphatase 57 46-116 U/L Total Protein 6.2 5.7-8.2 g/dL Albumin 3.7 3.2-4.8 g/dL Test 10/04/24 03:17 10/03/24 01:10 10/03/24 00:26 10/02/24 21:38 Range/Units Differential Total Cells Counted 100.0 100 Neutrophils % (Manual) 98 H 37.0-80.0 Band Neutrophils % (Manual) 0 Lymphocytes % (Manual) 2 L 10.0-50.0 Monocytes % (Manual) 0 0-12 Eosinophils % (Manual) 0 0-7 Basophils % (Manual) 0 0.0-2.0 Metamyelocytes % (manual) 0 Myelocytes % (Manual) 0 Promyelocytes % (Manual) 0 Blast Cells % (Manual) 0 Reactive Lymphocytes 0 Platelet Estimate Adequate Lactic Acid Level 1.2 0.4-2.0 mmol/L Troponin I High Sensitivity 3 L </=54 ng/L Urine Color Yellow Yellow Urine Clarity Clear Clear Urine pH 5.5 5.0-9.0 Urine Specific Beaver 1.024 1.001-1.035 Urine Protein Trace H Negative Urine Ketones Negative Negative Urine Blood Trace H Negative /uL Urine Nitrite Negative Negative Urine Bilirubin Negative Negative Urine Urobilinogen 2 H Negative mg/dL Urine Leukocyte Esterase Negative Negative /uL Urine RBC 1 0 - 3 /hpf Urine WBC 1 0 - 3 /hpf Urine Squamous Epithelial Cells Few <5 /hpf Urine Bacteria None seen None Seen /hpf Urine Hyaline Casts Few 0 - 2 /lpf Urine Mucus Few None Seen Urine Glucose Normal Normal mg/dL Test 10/02/24 21:04 Range/Units B-Type Natriuretic Peptide 37.62 0-100 pg/mL Lipase 29 12-53 U/L Microbiology Date/Time Source Procedure Growth Status 10/04/24 02:40 Nose MRSA Screen - Final Complete 10/03/24 09:08 Urine - [place] Urine Culture - Final Complete 10/03/24 01:10 Blood Blood Culture - Preliminary NO GROWTH AFTER 72 HOURS OF INCUBATION. Resulted Assessment/Plan Problem List: (1) Retention of urine (2) Pneumonia (3) Unresponsive (4) Aspiration into lower respiratory tract Plan moody to gravity monthly exchanges send urine for culture Plan discussed with: JON Rodriguez NP Oct 07, 2024 11:31
--- NOTE | 2024-10-07 13:07 | DVHPN2 ---
Progress Note - Dictate Date Seen: Oct 07, 2024 Medical Necessity Reason Pt with a Central, PICC or Fol: Yes The following are medically ne: Moody Catheter Reason for moody catheter: Strict I&O Subjective Patient intubated. Sedation off since AM. Noted to have some skin sloughing of glans of penis. vital signs Vital Sign Date Time Temp Pulse Resp B/P (MAP) Pulse Ox O2 Delivery O2 Flow Rate FiO2 10/07/24 12:08 73 20 104/47 (66) 100 30 10/07/24 08:00 Mechanical Ventilator+ 10/07/24 07:00 99.1 99.1 10/05/24 20:51 50.0 Total Intake and Output 10/06/24 10/06/24 10/07/24 15:00 23:00 07:00 Intake Total 898 ml 1048 ml 1213 ml Output Total 430 ml 500 ml Balance 898 ml 618 ml 713 ml medications Current Medications Medications Dose Ordered Sig/Larissa Route Start Time Stop Time Status Last Admin Dose Admin Midazolam HCl 50 ml @ 1 mls/hr Q24H IV 10/02/24 23:00 10/07/24 02:31 6 MLS/HR Nitroglycerin 0.4 mg Q5MINP PRN SL 10/03/24 01:45 Morphine Sulfate 2 mg Q30M PRN IV 10/03/24 01:45 Albuterol 2.5 mg Q6HR NEB 10/03/24 06:00 10/07/24 12:07 2.5 MG Ipratropium Xenia 0.5 mg Q6HP NEB 10/03/24 06:00 10/07/24 12:07 0.5 MG Ondansetron HCl 4 mg Q6HPRN PRN IV 10/03/24 01:45 Norepinephrine Bitartrate 250 ml @ 3.75 mls/hr Q24H IV 10/03/24 03:00 10/04/24 03:16 3.75 MLS/HR Ceftriaxone Sodium/Dextrose 50 ml @ 50 mls/hr DAILY IV 10/03/24 10:00 10/07/24 10:48 50 MLS/HR Hydralazine HCl 20 mg Q4HR PRN IV 10/03/24 22:15 10/05/24 02:08 20 MG Pantoprazole Sodium 40 mg DAILY IV 10/04/24 20:00 10/07/24 10:48 40 MG Heparin Sodium (Porcine) 5,000 units Q12HR SC 10/04/24 22:00 10/07/24 10:51 5,000 UNITS Enteral Nutritional Formula 1,000 ml 40ML/HR GT 10/05/24 17:30 10/06/24 20:52 1,000 ML objective General appearance: No acute distress Respiratory: Lungs clear to auscultation. No wheezing, crackles Cardiovascular: Regular rate and rhythm, no murmurs. No edema Abdomen: Soft, nondistended, nontender, bowel sounds present MSK: Appropriate muscle bulk Neuro: Arousable. laboratory and microbiology Laboratory Tests 10/07/24 11:00 10/07/24 03:51 Test 10/07/24 03:51 Range/Units Serum Glucose 90 74-106 mg/dL Problem List 1. Acute Respiratory Failure likely due to Aspiration 2. MARKETING [employer]APH[employer]IST Shunt Placement due to NPH on 07/2024 3. Dementia Assessment/Plan -Continue cardiopulmonary monitoring. -Daily SAT and SBT -Daily chest x-ray and ABG -Neurology consulted. Repeat CT brain WO contrast shows no acute changes. -EEG shows no seizure activity -Pulmonary consulted for vent management -Bronchoscopy done -Tube feeds -ID consulted due to rising WBC. Cutlures negative, no fevers. -1/2 NS discontinued to due increased secretions -Fevered overnight after bronchoscopy. Blood cultures repeated. Sputum cultures pending -Urology consulted for sloughing of skin on glans of penis. -Protonix 40 mg IV daily -DVT prophylaxis -DNR per daughter, Christina Dietary Evaluation Review Comments: 1. If pt extubated, follow S/P for regular PO diet texture recommendations 2. If not extubated, start Jevity 1.2 @10ml/hr and increase 10ml/hr Q Shift till goal of 50ml/hr 1440 Kcal 67g Protein 968ml Free Water Expected Outcomes/Goals: 1. pt will consume >75% of estimated needs within 3-5 days Plan discussed with: Other Respiratory Effort: ET Tube Breath sounds: Clear, Crackles, Rhonchi, Diminished Skin Moisture: Moist DEEPA LUNA DO Oct 07, 2024 13:07
--- NOTE | 2024-10-07 14:17 | DVHPN2 ---
Progress Note - Dictate Date Seen: Oct 08, 2024 Medical Necessity Reason Pt with a Central, PICC or Fol: Yes The following are medically ne: Moody Catheter Reason for moody catheter: Strict I&O Subjective Seen in ICU with no acute neurological issues noted. Remains intubated, on ventilator support, sedation being weaned off. More awake and responsive relative to yesterday. Underwent successful bronchoscopy. Febrile last night, white count improved. Septic workup ongoing. Family at bedside confirms that the patient was doing well immediately before choking on pizza when eating, precipitating loss of consciousness. vital signs Vital Sign Date Time Temp Pulse Resp B/P (MAP) Pulse Ox O2 Delivery O2 Flow Rate FiO2 10/07/24 12:08 73 20 104/47 (66) 100 30 10/07/24 12:00 99.5 99.5 10/07/24 12:00 Mechanical Ventilator+ 10/05/24 20:51 50.0 Total Intake and Output 10/06/24 10/06/24 10/07/24 15:00 23:00 07:00 Intake Total 898 ml 1048 ml 1213 ml Output Total 430 ml 500 ml Balance 898 ml 618 ml 713 ml medications Current Medications Medications Dose Ordered Sig/Larissa Route Start Time Stop Time Status Last Admin Dose Admin Midazolam HCl 50 ml @ 1 mls/hr Q24H IV 10/02/24 23:00 10/07/24 02:31 6 MLS/HR Nitroglycerin 0.4 mg Q5MINP PRN SL 10/03/24 01:45 Morphine Sulfate 2 mg Q30M PRN IV 10/03/24 01:45 Albuterol 2.5 mg Q6HR NEB 10/03/24 06:00 10/07/24 12:07 2.5 MG Ipratropium Krebs 0.5 mg Q6HP NEB 10/03/24 06:00 10/07/24 12:07 0.5 MG Ondansetron HCl 4 mg Q6HPRN PRN IV 10/03/24 01:45 Norepinephrine Bitartrate 250 ml @ 3.75 mls/hr Q24H IV 10/03/24 03:00 10/04/24 03:16 3.75 MLS/HR Ceftriaxone Sodium/Dextrose 50 ml @ 50 mls/hr DAILY IV 10/03/24 10:00 10/07/24 10:48 50 MLS/HR Hydralazine HCl 20 mg Q4HR PRN IV 10/03/24 22:15 10/05/24 02:08 20 MG Pantoprazole Sodium 40 mg DAILY IV 10/04/24 20:00 10/07/24 10:48 40 MG Heparin Sodium (Porcine) 5,000 units Q12HR SC 10/04/24 22:00 10/07/24 10:51 5,000 UNITS Enteral Nutritional Formula 1,000 ml 40ML/HR GT 10/05/24 17:30 10/06/24 20:52 1,000 ML objective Mental status: The patient is sedated, best response is eye opening to voice Cranial nerves II through XII: Pupils are 2 to 3 mm sluggish reactive to light. Corneal reflexes present. Doll's eye reflex is present. No gross facial asymmetry seen. Motor examination: At least 1+/5 movements of upper limbs to pain. Sensory examination: Appears to perceive pain at all limbs. laboratory and microbiology Laboratory Tests 10/07/24 11:00 10/07/24 03:51 Test 10/07/24 03:51 Range/Units Serum Glucose 90 74-106 mg/dL Assessment/Plan Acute respiratory failure Acute septic/toxicmetabolic encephalopathy Pneumonia Improved shock state Can proceed with sedation and ventilator weaning plans if deemed appropriate by other serivces. Management of concurrent active medical problems potentially contributing to encephalopathy deferred to other specialty services. Septic workup ongoing Will follow. Dietary Evaluation Review Comments: 1. If pt extubated, follow S/P for regular PO diet texture recommendations 2. If not extubated, start Jevity 1.2 @10ml/hr and increase 10ml/hr Q Shift till goal of 50ml/hr 1440 Kcal 67g Protein 968ml Free Water Expected Outcomes/Goals: 1. pt will consume >75% of estimated needs within 3-5 days Plan discussed with: Son (RN), Other Respiratory Effort: ET Tube Breath sounds: Clear, Crackles, Rhonchi, Diminished Skin Moisture: Moist LASHAUN FORBES MD Oct 07, 2024 14:17
--- NOTE | 2024-10-07 20:07 | DVHPN2 ---
Consult Progress Note Date Seen: Oct 06, 2024 Subjective Patient reports: Feels better (underwent bronch, persistent fevers) Objective vital signs Vital Sign Date Time Temp Pulse Resp B/P (MAP) Pulse Ox O2 Delivery O2 Flow Rate FiO2 10/07/24 18:46 91 13 148/76 (100) 96 10/07/24 18:00 Mechanical Ventilator+ 30 30 10/07/24 16:00 99.1 99.1 10/05/24 20:51 50.0 Total Intake and Output 10/06/24 10/06/24 10/07/24 15:00 23:00 07:00 Intake Total 898 ml 1048 ml 1213 ml Output Total 430 ml 500 ml Balance 898 ml 618 ml 713 ml medications Current Medications Medications Dose Ordered Sig/Larissa Route Start Time Stop Time Status Last Admin Dose Admin Midazolam HCl 50 ml @ 1 mls/hr Q24H IV 10/02/24 23:00 10/07/24 02:31 Nitroglycerin 0.4 mg Q5MINP PRN SL 10/03/24 01:45 Morphine Sulfate 2 mg Q30M PRN IV 10/03/24 01:45 Albuterol 2.5 mg Q6HR NEB 10/03/24 06:00 10/07/24 18:27 Ipratropium [place] 0.5 mg Q6HP NEB 10/03/24 06:00 10/07/24 18:27 Ondansetron HCl 4 mg Q6HPRN PRN IV 10/03/24 01:45 Norepinephrine Bitartrate 250 ml @ 3.75 mls/hr Q24H IV 10/03/24 03:00 10/04/24 03:16 Ceftriaxone Sodium/Dextrose 50 ml @ 50 mls/hr DAILY IV 10/03/24 10:00 10/07/24 10:48 Hydralazine HCl 20 mg Q4HR PRN IV 10/03/24 22:15 10/05/24 02:08 Pantoprazole Sodium 40 mg DAILY IV 10/04/24 20:00 10/07/24 10:48 Heparin Sodium (Porcine) 5,000 units Q12HR SC 10/04/24 22:00 10/07/24 10:51 Enteral Nutritional Formula 1,000 ml 40ML/HR GT 10/05/24 17:30 10/07/24 18:14 Dexmedetomidine HCl 400 mcg/ Dextrose 100 ml @ 3.15 mls/hr Q24H IV 10/07/24 19:00 Physical Exam: General: Patient intubated, sedated, grimacing minimally to pain. Neck: Supple. No masses. HEENT: Gag reflex present. PERRL. Normal lids and conjunctiva. Moist mucous membranes. Oropharynx without lesions, exudates, or excessive erythema. Normal appearance of the external aspects of the nose and ears. Heart: Regular rhythm, normal rate. No murmur. Lungs: Intubated. Breath sounds present bilaterally. Thick dark-colored sputum noted. Abdomen: Soft. Non-tender. Non-distended. Normal bowel sounds. No masses or abdominal hernia. Musculoskeletal: No notable movement. Skin: Warm and dry. No rashes. Neuro: Intubated and sedated, grimacing minimally to pain. Gag reflex present. Psych: Baseline dementia. laboratory and microbiology Laboratory Tests 10/07/24 11:00 10/07/24 03:51 Test 10/07/24 03:51 Range/Units Serum Glucose 90 74-106 mg/dL Problem List/Assessment/Plan Problem List/Assessment/Plan ASSESSMENT AND PLAN: ID Problem List: - Acute hypoxic respiratory failure - Left lower lobe pneumonia - Dementia - Recurrent urinary tract infections - Recurrent transient ischemic attacks (TIAs) - Ventriculoperitoneal (TAILERCPA) shunt placement Assessment This is an 84 y.o. male with a past medical history of dementia, recurrent urinary tract infections, recurrent TIAs, and TAILERCPA shunt placement, who presents with acute hypoxic respiratory failure likely secondary to aspiration pneumonia. Per EMS, the patient was at home when he choked on pizza, vomited, and became unresponsive. He was intubated urgently in the ED upon arrival for acute respiratory failure. On admission, the patient was intubated and sedated, grimacing minimally to pain with a gag reflex present. He was hypoxic and hypertensive. Laboratory studies showed WBC 9.6, Hgb 11.3, platelets 255, sodium 145, creatinine 0.76, lactic acid 1.2, and normal liver enzymes. Imaging studies revealed left basilar opacification consistent with pleural effusion and associated atelectasis on chest X-ray. Head CT showed no acute findings but chronic periventricular ischemic changes. Microbiology data showed sputum cultures with normal respiratory shamika and no growth. Blood and urine cultures have been negative to date. The patient has been febrile since the and continues to have fevers into the . The patient underwent bronchoscopy yesterday; cultures from the bronchoalveolar lavage are pending. Plan: - Continue ceftriaxone (Rocephin) for now. - Await bronchoscopy results, specifically bacterial cultures from the bronchoalveolar lavage. - If an organism is identified from bronchoscopy or if pneumonia progresses, recommend thoracentesis of the pleural effusion to evaluate for possible empyema. Pleural fluid analysis should include protein, LDH, cell count, bacterial culture, and pH. - Hold off on thoracentesis at this time pending bronchoscopic results. - No need to broaden antibiotics at this time. Isolation Precautions: Standard Authorized and Performed by: keith bell Total critical care time: Approximately 75 minutes Due to a high probability of clinically significant, life threatening deterioration, the patient required my highest level of preparedness to intervene emergently and I personally spent this critical care time directly and personally managing the patient. This critical care time included obtaining a history; examining the patient; pulse oximetry; ordering and review of studies; arranging urgent treatment with development of a management plan; evaluation of patient's response to treatment; frequent reassessment; and, discussions with other providers. This critical care time was performed to assess and manage the high probability of imminent, life-threatening deterioration that could result in multi-organ failure. It was exclusive of separately billable procedures and treating other patients and teaching time. Assessment and plan were discussed with the care team as written above. Plan is subject to change pending incorporation of new incoming information/diagnostics. Updates may be added as an addendum at the bottom (OR TOP) of this note. Thank you for interesting consult. ID will continue to follow. Please contact Infectious Disease for any questions or concerns. Keith Bell M.D. [facility] Plan discussed with: Patient Dietary Evaluation Review Comments: 1. If pt extubated, follow S/P for regular PO diet texture recommendations 2. If not extubated, start Jevity 1.2 @10ml/hr and increase 10ml/hr Q Shift till goal of 50ml/hr 1440 Kcal 67g Protein 968ml Free Water Expected Outcomes/Goals: 1. pt will consume >75% of estimated needs within 3-5 days KEITH BELL MD Oct 07, 2024 20:07
--- NOTE | 2024-10-07 20:07 | DVHINCON2 ---
Date of service: Oct 05, 2024 Allergies: Coded Allergies: NO KNOWN ALLERGIES (Unverified , 10/02/24) Current Medications Current Medications Medications (Trade) Dose Ordered Sig/Larissa Route PRN Reason Start Time Stop Time Status Last Admin Dexmedetomidine HCl 400 mcg/ Dextrose 100 ml @ 3.15 mls/hr Q24H IV 10/07/24 19:00 Vital Signs Vital Signs Date Time Temp Pulse Resp B/P (MAP) Pulse Ox O2 Delivery O2 Flow Rate FiO2 10/07/24 18:46 91 13 148/76 (100) 96 10/07/24 18:00 Mechanical Ventilator+ 30 30 10/07/24 16:00 99.1 99.1 10/05/24 20:51 50.0 Labs/Diagnostic Data Labs Test 10/07/24 11:00 10/07/24 03:51 10/06/24 07:25 10/05/24 03:00 Range/Units White Blood Count 10.9 H 4.4-10.8 10^3/uL Red Blood Count 3.78 L 4.5-5.90 10^6/uL Hemoglobin 11.9 L 13.5-17.5 g/dL Hematocrit 34.7 L 41.0-53.0 % Mean Corpuscular Volume 91.9 80.0-100.0 fL Mean Corpuscular Hemoglobin 31.5 28.0-32.0 pg Mean Corpuscular Hemoglobin Concent 34.3 32.0-36.0 g/dL Red Cell Distribution Width 13.3 11.8-14.3 % Platelet Count 201 140-450 10^3/uL Mean Platelet Volume 7.9 6.9-10.8 fL Neutrophils (%) (Auto) 81.4 H 37.0-80.0 % Lymphocytes (%) (Auto) 9.0 L 10.0-50.0 % Monocytes (%) (Auto) 8.8 0.0-12.0 % Eosinophils (%) (Auto) 0.6 0.0-7.0 % Basophils (%) (Auto) 0.2 0.0-2.0 % Neutrophils # (Auto) 8.9 H 1.6-8.6 10 ^3/uL Lymphocytes # (Auto) 1.0 0.4-5.4 10 ^3/uL Monocytes # (Auto) 1.0 0-1.3 10 ^3/uL Eosinophils # (Auto) 0.1 0-0.8 10 ^3/uL Basophils # (Auto) 0 0-0.2 10 ^3/uL Nucleated Red Blood Cells 0.1 % Sodium Level 139 # 136-145 mmol/L Potassium Level 3.9 3.5-5.1 mmol/L Chloride Level 106 98-107 mmol/L Carbon Dioxide Level 26 20-31 mmol/L Anion Gap 7 5-15 Blood Urea Nitrogen 17 9-23 mg/dL Creatinine 0.70 0.700-1.30 mg/dL Glomerular Filtration Rate Calc 92 >90 mL/min BUN/Creatinine Ratio 24.3 H 10.0-20.0 Serum Glucose 90 74-106 mg/dL Calcium Level 8.9 8.7-10.4 mg/dL Blood Gas Specimen Type Arterial Blood Gas Sample Site Left radial Blood Gas Patient Temperature 37.0 Arterial Blood Date Drawn [id number] Arterial Blood pH 7.402 7.350-7.450 Arterial Blood Partial Pressure CO2 39.8 35.0-48.0 mmHg Arterial Blood Partial Pressure O2 119.2 H 83.0-108.0 mmHg Arterial Blood HCO3 24.2 21.0-28.0 mmol/L Arterial Blood Oxygen Saturation 98.0 94.0-98.0 % Arterial Blood Base Excess -0.4 -2.0-3.0 mmol/L Arterial Blood Oxyhemoglobin 97.5 94.0-98.0 % Arterial Blood Carboxyhemoglobin 0.3 L 0.5-1.5 % Arterial Blood Methemoglobin 0.2 0.0-1.5 % Jordon Test Modified Blood Gas Total Hemoglobin 12.50 L 13.5-17.5 g/dL Blood Gas Set Respiration Rate 18.0 Blood Gas Modality Vent - ac FiO2 % 30.0 Blood Gas Tidal Volume 450.0 Blood Gas PEEP or CPAP 5.0 Magnesium Level 2.2 1.6-2.6 mg/dL Total Bilirubin 0.3 0.2-1.0 mg/dL Aspartate Amino Transferase (AST) 10 L 13-40 U/L Alanine Aminotransferase (ALT) 12 7-40 U/L Alkaline Phosphatase 57 46-116 U/L Total Protein 6.2 5.7-8.2 g/dL Albumin 3.7 3.2-4.8 g/dL Test 10/04/24 03:17 10/03/24 01:10 10/03/24 00:26 10/02/24 21:38 Range/Units Differential Total Cells Counted 100.0 100 Neutrophils % (Manual) 98 H 37.0-80.0 Band Neutrophils % (Manual) 0 Lymphocytes % (Manual) 2 L 10.0-50.0 Monocytes % (Manual) 0 0-12 Eosinophils % (Manual) 0 0-7 Basophils % (Manual) 0 0.0-2.0 Metamyelocytes % (manual) 0 Myelocytes % (Manual) 0 Promyelocytes % (Manual) 0 Blast Cells % (Manual) 0 Reactive Lymphocytes 0 Platelet Estimate Adequate Lactic Acid Level 1.2 0.4-2.0 mmol/L Troponin I High Sensitivity 3 L </=54 ng/L Urine Color Yellow Yellow Urine Clarity Clear Clear Urine pH 5.5 5.0-9.0 Urine Specific [place] 1.024 1.001-1.035 Urine Protein Trace H Negative Urine Ketones Negative Negative Urine Blood Trace H Negative /uL Urine Nitrite Negative Negative Urine Bilirubin Negative Negative Urine Urobilinogen 2 H Negative mg/dL Urine Leukocyte Esterase Negative Negative /uL Urine RBC 1 0 - 3 /hpf Urine WBC 1 0 - 3 /hpf Urine Squamous Epithelial Cells Few <5 /hpf Urine Bacteria None seen None Seen /hpf Urine Hyaline Casts Few 0 - 2 /lpf Urine Mucus Few None Seen Urine Glucose Normal Normal mg/dL Test 10/02/24 21:04 Range/Units B-Type Natriuretic Peptide 37.62 0-100 pg/mL Lipase 29 12-53 U/L Microbiology Date/Time Source Procedure Growth Status 10/04/24 02:40 Nose MRSA Screen - Final Complete 10/03/24 09:08 Urine - [place] Urine Culture - Final Complete 10/03/24 01:10 Blood Blood Culture - Preliminary NO GROWTH AFTER 72 HOURS OF INCUBATION. Resulted Plan/Recommendation ASSESSMENT AND PLAN: ID Problem List: - Acute hypoxic respiratory failure - Left lower lobe pneumonia - Dementia - Recurrent urinary tract infections - Recurrent transient ischemic attacks (TIAs) - Ventriculoperitoneal (HUNTER TRAPPER) shunt placement Assessment This is an 84 y.o. male with a past medical history of dementia, recurrent urinary tract infections, recurrent TIAs, and HUNTER TRAPPER shunt placement, who presents with acute hypoxic respiratory failure likely secondary to aspiration pneumonia. Per EMS, the patient was at home when he choked on pizza, vomited, and became unresponsive. He was intubated urgently in the ED upon arrival for acute respiratory failure. On admission, the patient was intubated and sedated, grimacing minimally to pain with a gag reflex present. He was hypoxic and hypertensive. Laboratory studies showed WBC 9.6, Hgb 11.3, platelets 255, sodium 145, creatinine 0.76, lactic acid 1.2, and normal liver enzymes. Imaging studies revealed left basilar opacification consistent with pleural effusion and associated atelectasis on chest X-ray. Head CT showed no acute findings but chronic periventricular ischemic changes. Microbiology data showed sputum cultures with normal respiratory shamika and no growth. Blood and urine cultures have been negative to date. The patient has been febrile since the and continues to have fevers into the . The patient underwent bronchoscopy yesterday; cultures from the bronchoalveolar lavage are pending. Plan: - Continue ceftriaxone (Rocephin) for now. - Await bronchoscopy results, specifically bacterial cultures from the bronchoalveolar lavage. - If an organism is identified from bronchoscopy or if pneumonia progresses, recommend thoracentesis of the pleural effusion to evaluate for possible empyema. Pleural fluid analysis should include protein, LDH, cell count, bacterial culture, and pH. - Hold off on thoracentesis at this time pending bronchoscopic results. - No need to broaden antibiotics at this time. Isolation Precautions: Standard Authorized and Performed by: keith colón Total critical care time: Approximately 76 minutes Due to a high probability of clinically significant, life threatening deterioration, the patient required my highest level of preparedness to intervene emergently and I personally spent this critical care time directly and personally managing the patient. This critical care time included obtaining a history; examining the patient; pulse oximetry; ordering and review of studies; arranging urgent treatment with development of a management plan; evaluation of patient's response to treatment; frequent reassessment; and, discussions with other providers. This critical care time was performed to assess and manage the high probability of imminent, life-threatening deterioration that could result in multi-organ failure. It was exclusive of separately billable procedures and treating other patients and teaching time. Assessment and plan were discussed with the care team as written above. Plan is subject to change pending incorporation of new incoming information/diagnostics. Updates may be added as an addendum at the bottom (OR TOP) of this note. Thank you for interesting consult. ID will continue to follow. Please contact Infectious Disease for any questions or concerns. Keith Colón M.D. [facility] Ph: ? History: The patient's chart and medications were reviewed in detail, and the patient was seen and examined. History obtained from: Medical records and EMS report History of Present Illness: Jeffrey Ayala is an 84 y.o. male with a past medical history of dementia, recurrent urinary tract infections, recurrent transient ischemic attacks (TIAs), and HUNTER TRAPPER shunt placement, who presents with acute hypoxic respiratory failure. Per EMS, the patient was at home when he choked on pizza, vomited, and became unresponsive. He was intubated urgently in the ED upon arrival for acute respiratory failure. On admission, the patient was intubated and sedated, grimacing minimally to pain with a gag reflex present. He was hypoxic and hypertensive. Home medications are unclear; we were unable to obtain a review of systems due to the patient being intubated, sedated, and having baseline dementia. It appears the patient takes hydralazine at home. Review of Systems: A complete 10-system review of systems was unable to be completed due to the patient's condition and was limited as noted in the HPI or here. Past Medical History: Diagnosis Date - Dementia - Recurrent urinary tract infections - Recurrent transient ischemic attacks (TIAs) Past Surgical History: - Ventriculoperitoneal shunt placement Home Medications: Prior to Admission Medications: Medication - Hydralazine (dose and frequency unknown) Unable to confirm other home medications due to the patient's condition. Allergies: - No known drug allergies (NKDA) Family History: - Not available. Social History: Social history is limited due to the patient's condition. - Objective: Vital Signs on Arrival: - Temp: 98.6 F - BP: 114/83 mmHg - Pulse: 83 bpm - Resp: 16 breaths per minute - SpO?: Not specified Admission Weight: - Not specified Physical Exam: General: Patient intubated, sedated, grimacing minimally to pain. Neck: Supple. No masses. HEENT: Gag reflex present. PERRL. Normal lids and conjunctiva. Moist mucous membranes. Oropharynx without lesions, exudates, or excessive erythema. Normal appearance of the external aspects of the nose and ears. Heart: Regular rhythm, normal rate. No murmur. Lungs: Intubated. Breath sounds present bilaterally. Thick dark-colored sputum noted. Abdomen: Soft. Non-tender. Non-distended. Normal bowel sounds. No masses or abdominal hernia. Musculoskeletal: No notable movement. Skin: Warm and dry. No rashes. Neuro: Intubated and sedated, grimacing minimally to pain. Gag reflex present. Psych: Baseline dementia. Lines: Active Lines - Endotracheal tube - Peripheral IV access - Diagnostic Studies: Available diagnostic studies were reviewed personally. Significant relevant results and findings are outlined below or addressed in the Assessment and Plan above. Laboratory Data: WBC: 9.6 K/L - Hgb: 11.3 g/dL - Platelets: 255 K/L - Sodium: 145 mmol/L - Creatinine: 0.76 mg/dL - Lactic Acid: 1.2 mmol/L - Liver enzymes: Normal Microbiology: - Sputum Cultures: Normal respiratory shamika, no growth. - Blood Cultures: No growth to date. - MRSA Nasal Swab: Negative. - Urine Culture: No growth. Pertinent Imaging: CT Head: Impression: 1. No evidence of acute large vessel territorial ischemic infarction or intracranial hematoma. 2. Diffuse hyperdensities noted in periventricular deep white matter and bi lateral hemispheres due to transependymal seepage of CSF/chronic periventricular ischemic changes. 3. Ventriculoperitoneal shunt changes noted on the right side with its tip in the body of the right lateral ventricle. Chest X-ray: Impression: 1. Left basilar opacification with obscuration of the left hemidiaphragm consistent with pleural effusion with associated atelectasis. 2. Endotracheal tube in satisfactory position. 3. Prior chest X-rays show minimal interval changes, with left lower lobe airspace disease slowly resolving. Plan discussed with: Patient KEITH COLÓN MD Oct 07, 2024 20:07
--- NOTE | 2024-10-07 21:35 | DVHPN2 ---
Consult Progress Note Date Seen: Oct 07, 2024 Subjective Patient reports: Other (on minimal vent , still having fevers as high as 100.5, off sedation and minimally responsive , catheter has been changed) Objective vital signs Vital Sign Date Time Temp Pulse Resp B/P (MAP) Pulse Ox O2 Delivery O2 Flow Rate FiO2 10/07/24 20:15 88 22 128/60 (82) 99 30 10/07/24 18:00 Mechanical Ventilator+ 10/07/24 16:00 99.1 99.1 10/05/24 20:51 50.0 Total Intake and Output 10/06/24 10/06/24 10/07/24 15:00 23:00 07:00 Intake Total 898 ml 1048 ml 1213 ml Output Total 430 ml 500 ml Balance 898 ml 618 ml 713 ml medications Current Medications Medications Dose Ordered Sig/Larissa Route Start Time Stop Time Status Last Admin Dose Admin Midazolam HCl 50 ml @ 1 mls/hr Q24H IV 10/02/24 23:00 10/07/24 02:31 6 MLS/HR Nitroglycerin 0.4 mg Q5MINP PRN SL 10/03/24 01:45 Morphine Sulfate 2 mg Q30M PRN IV 10/03/24 01:45 Albuterol 2.5 mg Q6HR NEB 10/03/24 06:00 10/07/24 18:27 2.5 MG Ipratropium [place] 0.5 mg Q6HP NEB 10/03/24 06:00 10/07/24 18:27 0.5 MG Ondansetron HCl 4 mg Q6HPRN PRN IV 10/03/24 01:45 Norepinephrine Bitartrate 250 ml @ 3.75 mls/hr Q24H IV 10/03/24 03:00 10/04/24 03:16 3.75 MLS/HR Ceftriaxone Sodium/Dextrose 50 ml @ 50 mls/hr DAILY IV 10/03/24 10:00 10/07/24 10:48 50 MLS/HR Hydralazine HCl 20 mg Q4HR PRN IV 10/03/24 22:15 10/05/24 02:08 20 MG Pantoprazole Sodium 40 mg DAILY IV 10/04/24 20:00 10/07/24 10:48 40 MG Heparin Sodium (Porcine) 5,000 units Q12HR SC 10/04/24 22:00 10/07/24 10:51 5,000 UNITS Enteral Nutritional Formula 1,000 ml 40ML/HR GT 10/05/24 17:30 10/07/24 18:14 1,000 ML Dexmedetomidine HCl 400 mcg/ Dextrose 100 ml @ 3.15 mls/hr Q24H IV 10/07/24 19:00 Physical Exam: General: Patient intubated, sedated, grimacing minimally to pain. Neck: Supple. No masses. HEENT: Gag reflex present. PERRL. Normal lids and conjunctiva. Moist mucous membranes. Oropharynx without lesions, exudates, or excessive erythema. Normal appearance of the external aspects of the nose and ears. Heart: Regular rhythm, normal rate. No murmur. Lungs: Intubated. Breath sounds present bilaterally. Thick dark-colored sputum noted. Abdomen: Soft. Non-tender. Non-distended. Normal bowel sounds. No masses or abdominal hernia. Musculoskeletal: No notable movement. Skin: Warm and dry. No rashes. Neuro: Intubated and sedated, grimacing minimally to pain. Gag reflex present. Psych: Baseline dementia. laboratory and microbiology Laboratory Tests 10/07/24 11:00 10/07/24 03:51 Test 10/07/24 03:51 Range/Units Serum Glucose 90 74-106 mg/dL Problem List/Assessment/Plan Problems(with codes): (1) Pneumonia (2) Unresponsive (3) Aspiration into lower respiratory tract (4) Retention of urine Problem List/Assessment/Plan ASSESSMENT AND PLAN: ID Problem List: - Acute hypoxic respiratory failure - Left lower lobe pneumonia - Dementia - Recurrent urinary tract infections - Recurrent transient ischemic attacks (TIAs) - Ventriculoperitoneal (EXTENSION SPECIALIST) shunt placement Assessment This is an 84 y.o. male with a past medical history of dementia, recurrent urinary tract infections, recurrent TIAs, and EXTENSION SPECIALIST shunt placement, who presents with acute hypoxic respiratory failure likely secondary to aspiration pneumonia. Per EMS, the patient was at home when he choked on pizza, vomited, and became unresponsive. He was intubated urgently in the ED upon arrival for acute respiratory failure. On admission, the patient was intubated and sedated, grimacing minimally to pain with a gag reflex present. He was hypoxic and hypertensive. Laboratory studies showed WBC 9.6, Hgb 11.3, platelets 255, sodium 145, creatinine 0.76, lactic acid 1.2, and normal liver enzymes. Imaging studies revealed left basilar opacification consistent with pleural effusion and associated atelectasis on chest X-ray. Head CT showed no acute findings but chronic periventricular ischemic changes. Microbiology data showed sputum cultures with normal respiratory shamika and no growth. Blood and urine cultures have been negative to date. The patient has been febrile since the and continues to have fevers into the . The patient underwent bronchoscopy yesterday; cultures from the bronchoalveolar lavage are pending. 10/07: Patient underwent broncoscopy yesterday and results showed there was muccus plugging form L6-L10 and R4-R10 and BAL was preformed and sent for cultures . there was bilateral lower lobe eight electosis due to mucus plugging. EEG was done and theres abnormal severe diffuse nonspecific encephalopathic state possibly related to deep sedation but no defitite epiletiform . Urology saw patient and switched out catherter and sent urine culture Plan: - Follow up on BAL cultures , urine cultures - Monitor fever curve and white count - Continue ceftriaxone (Rocephin) for now. - Await bronchoscopy results, specifically bacterial cultures from the bronchoalveolar lavage. - If an organism is identified from bronchoscopy or if pneumonia progresses, recommend thoracentesis of the pleural effusion to evaluate for possible empyema. Pleural fluid analysis should include protein, LDH, cell count, bacterial culture, and pH. - Hold off on thoracentesis at this time pending bronchoscopic results. - No need to broaden antibiotics at this time. Isolation Precautions: Standard Authorized and Performed by: keith bell Total critical care time: Approximately 75 minutes Due to a high probability of clinically significant, life threatening deterioration, the patient required my highest level of preparedness to intervene emergently and I personally spent this critical care time directly and personally managing the patient. This critical care time included obtaining a history; examining the patient; pulse oximetry; ordering and review of studies; arranging urgent treatment with development of a management plan; evaluation of patient's response to treatment; frequent reassessment; and, discussions with other providers. This critical care time was performed to assess and manage the high probability of imminent, life-threatening deterioration that could result in multi-organ failure. It was exclusive of separately billable procedures and treating other patients and teaching time. Assessment and plan were discussed with the care team as written above. Plan is subject to change pending incorporation of new incoming information/diagnostics. Updates may be added as an addendum at the bottom (OR TOP) of this note. Thank you for interesting consult. ID will continue to follow. Please contact Infectious Disease for any questions or concerns. Keith Bell M.D. [facility] Plan discussed with: Other Dietary Evaluation Review Comments: 1. If pt extubated, follow S/P for regular PO diet texture recommendations 2. If not extubated, start Jevity 1.2 @10ml/hr and increase 10ml/hr Q Shift till goal of 50ml/hr 1440 Kcal 67g Protein 968ml Free Water Expected Outcomes/Goals: 1. pt will consume >75% of estimated needs within 3-5 days KEITH BELL MD Oct 07, 2024 21:35
[2024-10-08] VITALS (108 sets, daily range): BP systolic 102–163; BP diastolic 42–94; PULSE 82–112; RESP 8–30; TEMP 98.5–99.9; O2SAT 89–100
[2024-10-08 04:17] LABS: Basophils # (auto) 0 10 ^3/uL (0-0.2); Basophils % (auto) 0.2 % (0.0-2.0); Eosinophils # (auto) 0.1 10 ^3/uL (0-0.8); Eosinophils % (auto) 0.9 % (0.0-7.0); Hematocrit 33.4 % (41.0-53.0); Hemoglobin 11.3 g/dL (13.5-17.5); Lymphocytes # (auto) 0.7 10 ^3/uL (0.4-5.4); Lymphocytes % (auto) 7.5 % (10.0-50.0); Mean Corpuscular Hemoglobin 30.6 pg (28.0-32.0); Mean Corpuscular Volume 90.2 fL (80.0-100.0); Monocytes # (auto) 1.2 10 ^3/uL (0-1.3); Monocytes % (auto) 12.8 % (0.0-12.0); Neutrophils # (auto) 7.3 10 ^3/uL (1.6-8.6); Neutrophils % (auto) 78.6 % (37.0-80.0); Nucleated Red Blood Cells % 0.2 %; Platelet Count (auto) 192 10^3/uL (140-450); Red Cell Distribution Width 13.3 % (11.8-14.3); White Blood Cell 9.3 10^3/uL (4.4-10.8)
[2024-10-08 04:37] LABS: Alanine Aminotransferase 14 U/L (7-40); Albumin 3.1 g/dL (3.2-4.8); Alkaline Phosphatase 59 U/L (46-116); Anion Gap 6 (5-15); Aspartate Aminotransferase 18 U/L (13-40); BUN/Creatinine Ratio 19.5 (10.0-20.0); Bilirubin, Total 0.6 mg/dL (0.2-1.0); Blood Urea Nitrogen 15 mg/dL (9-23); Calcium 9.2 mg/dL (8.7-10.4); Carbon Dioxide 27 mmol/L (20-31); Chloride 109 mmol/L (98-107); Glucose 95 mg/dL (74-106); Potassium 3.7 mmol/L (3.5-5.1); Sodium 142 mmol/L (136-145)
[2024-10-08 04:38] LABS: Total Protein 5.4 g/dL (5.7-8.2)
--- NOTE | 2024-10-08 04:49 | DVH ---
CHEST RADIOGRAPH Indication: ET PLACEMENT Technique: Single frontal view of the chest was obtained Comparison: XY CHEST PORTABLE on DOS: 10/07/24 FINDINGS: Lines and Tubes: The endotracheal tube terminates 2.8 cm above the reno. The enteric tube courses b elow the left hemidiaphragm and the tip extends to the region of the stomach. Lungs: Bilateral lower lung zone consolidation. Pleura: No effusion. No pneumothorax. Cardiomediastinal contours: Unremarkable Bones: No acute osseous abnormality. IMPRESSION: 1. Endotracheal tube terminates 2.8 cm above the reno. 2. Bilateral lower lung zone consolidation may reflect atelectasis or pneumonia.
[2024-10-08 07:23] LABS: Base Excess 0.3 mmol/L (-2.0-3.0)
[2024-10-08 11:05] LABS: Base Excess -1.4 mmol/L (-2.0-3.0)
--- NOTE | 2024-10-08 14:00 | DVHPN2 ---
Progress Note - Dictate Date Seen: Oct 08, 2024 Medical Necessity Reason Pt with a Central, PICC or Fol: Yes The following are medically ne: Moody Catheter Reason for moody catheter: Strict I&O Subjective Patient intubated. Sedation off and patient awake. vital signs Vital Sign Date Time Temp Pulse Resp B/P (MAP) Pulse Ox O2 Delivery O2 Flow Rate FiO2 10/08/24 12:29 95 Cool Aerosol 10 40 40 10/08/24 12:29 95 16 10/08/24 10:43 130/70 (90) 10/08/24 06:00 99.5 211.1 Total Intake and Output 10/07/24 10/07/24 10/08/24 15:00 23:00 07:00 Intake Total 425 ml 0 ml 80 ml Output Total 302 ml 310 ml Balance 425 ml -302 ml -230 ml medications Current Medications Medications Dose Ordered Sig/Larissa Route Start Time Stop Time Status Last Admin Dose Admin Midazolam HCl 50 ml @ 1 mls/hr Q24H IV 10/02/24 23:00 10/07/24 02:31 6 MLS/HR Nitroglycerin 0.4 mg Q5MINP PRN SL 10/03/24 01:45 Morphine Sulfate 2 mg Q30M PRN IV 10/03/24 01:45 Albuterol 2.5 mg Q6HR NEB 10/03/24 06:00 10/08/24 12:25 2.5 MG Ipratropium [place] 0.5 mg Q6HP NEB 10/03/24 06:00 10/08/24 12:25 0.5 MG Ondansetron HCl 4 mg Q6HPRN PRN IV 10/03/24 01:45 Norepinephrine Bitartrate 250 ml @ 3.75 mls/hr Q24H IV 10/03/24 03:00 10/04/24 03:16 3.75 MLS/HR Ceftriaxone Sodium/Dextrose 50 ml @ 50 mls/hr DAILY IV 10/03/24 10:00 10/08/24 10:21 50 MLS/HR Hydralazine HCl 20 mg Q4HR PRN IV 10/03/24 22:15 10/05/24 02:08 20 MG Pantoprazole Sodium 40 mg DAILY IV 10/04/24 20:00 10/08/24 10:21 40 MG Heparin Sodium (Porcine) 5,000 units Q12HR SC 10/04/24 22:00 10/08/24 10:22 5,000 UNITS Enteral Nutritional Formula 1,000 ml 40ML/HR GT 10/05/24 17:30 10/07/24 18:14 1,000 ML Dexmedetomidine HCl 400 mcg/ Dextrose 100 ml @ 3.15 mls/hr Q24H IV 10/07/24 19:00 objective General appearance: No acute distress Respiratory: Lungs clear to auscultation. No wheezing, crackles Cardiovascular: Regular rate and rhythm, no murmurs. No edema Abdomen: Soft, nondistended, nontender, bowel sounds present MSK: Appropriate muscle bulk Neuro: Awake laboratory and microbiology Laboratory Tests 10/08/24 04:00 Test 10/08/24 04:00 Range/Units Serum Glucose 95 74-106 mg/dL Problem List 1. Acute Respiratory Failure likely due to Aspiration 2. 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 Dementia Assessment/Plan -Continue cardiopulmonary monitoring. -Daily SAT and SBT -Daily chest x-ray and ABG -Neurology consulted. Repeat CT brain WO contrast shows no acute changes. -EEG shows no seizure activity -Pulmonary consulted for vent management -Bronchoscopy done -Tube feeds -ID consulted due to rising WBC. Cultures negative, no fevers. -1/2 NS discontinued to due increased secretions -Fevered overnight after bronchoscopy. Blood cultures repeated. Sputum cultures pending -Urology consulted for sloughing of skin on glans of penis. -Protonix 40 mg IV daily -DVT prophylaxis -DNR per daughter, Christina -Plan for extubation today if continues to do well on CPAP. Dietary Evaluation Review Comments: 1. If pt extubated, follow S/P for regular PO diet texture recommendations 2. If not extubated, start Jevity 1.2 @10ml/hr and increase 10ml/hr Q Shift till goal of 50ml/hr 1440 Kcal 67g Protein 968ml Free Water Expected Outcomes/Goals: 1. pt will consume >75% of estimated needs within 3-5 days Plan discussed with: Patient Respiratory Effort: ET Tube Breath sounds: Clear, Crackles, Rhonchi, Diminished Skin Moisture: Moist DEEPA LUNA DO Oct 08, 2024 14:00
[2024-10-08] MEDS ORDERED: GLYCOPYRROLATE 0.2 MG/ML 1ML VIAL IV PRN (18:00)
--- NOTE | 2024-10-08 18:16 | DVHDS2 ---
Discharge Summary Date of Admission Oct 03, 2024 at 01:37 Date of Discharge: Oct 08, 2024 Labs/Diagnostic Data: Laboratory Results Test 10/08/24 10:58 10/08/24 07:07 10/08/24 04:00 10/05/24 03:00 Blood Gas Specimen Type Arterial Blood Gas Sample Site Right radial Blood Gas Patient Temperature 37.0 Arterial Blood Date Drawn [id number] Arterial Blood pH 7.430 (7.350-7.450) Arterial Blood Partial Pressure CO2 34.5 mmHg (35.0-48.0) Arterial Blood Partial Pressure O2 84.8 mmHg (83.0-108.0) Arterial Blood HCO3 22.4 mmol/L (21.0-28.0) Arterial Blood Oxygen Saturation 96.1 % (94.0-98.0) Arterial Blood Base Excess -1.4 mmol/L (-2.0-3.0) Arterial Blood Oxyhemoglobin 95.5 % (94.0-98.0) Arterial Blood Carboxyhemoglobin 0.3 % (0.5-1.5) Arterial Blood Methemoglobin 0.3 % (0.0-1.5) Jordon Test Modified Blood Gas Total Hemoglobin 12.40 g/dL (13.5-17.5) Blood Gas Modality Vent - cpap Blood Gas Spontaneous Rate 13 FiO2 % 30.0 Blood Gas Inspiratory Pressure 16.0 Blood Gas PEEP or CPAP 5.0 Bl Gas Inspiratory/Expiratory Ratio 1:2.3 Specimen Drawn By guillaume rt Blood Gas Set Respiration Rate 18.0 Blood Gas Tidal Volume 450.0 White Blood Count 9.3 10^3/uL (4.4-10.8) Red Blood Count 3.70 10^6/uL (4.5-5.90) Hemoglobin 11.3 g/dL (13.5-17.5) Hematocrit 33.4 % (41.0-53.0) Mean Corpuscular Volume 90.2 fL (80.0-100.0) Mean Corpuscular Hemoglobin 30.6 pg (28.0-32.0) Mean Corpuscular Hemoglobin Concent 34.0 g/dL (32.0-36.0) Red Cell Distribution Width 13.3 % (11.8-14.3) Platelet Count 192 10^3/uL (140-450) Mean Platelet Volume 8.3 fL (6.9-10.8) Neutrophils (%) (Auto) 78.6 % (37.0-80.0) Lymphocytes (%) (Auto) 7.5 % (10.0-50.0) Monocytes (%) (Auto) 12.8 % (0.0-12.0) Eosinophils (%) (Auto) 0.9 % (0.0-7.0) Basophils (%) (Auto) 0.2 % (0.0-2.0) Neutrophils # (Auto) 7.3 10 ^3/uL (1.6-8.6) Lymphocytes # (Auto) 0.7 10 ^3/uL (0.4-5.4) Monocytes # (Auto) 1.2 10 ^3/uL (0-1.3) Eosinophils # (Auto) 0.1 10 ^3/uL (0-0.8) Basophils # (Auto) 0 10 ^3/uL (0-0.2) Nucleated Red Blood Cells 0.2 % Sodium Level 142 mmol/L (136-145) Potassium Level 3.7 mmol/L (3.5-5.1) Chloride Level 109 mmol/L (98-107) Carbon Dioxide Level 27 mmol/L (20-31) Anion Gap 6 (5-15) Blood Urea Nitrogen 15 mg/dL (9-23) Creatinine 0.77 mg/dL (0.700-1.30) Glomerular Filtration Rate Calc 89 mL/min (>90) BUN/Creatinine Ratio 19.5 (10.0-20.0) Serum Glucose 95 mg/dL (74-106) Calcium Level 9.2 mg/dL (8.7-10.4) Total Bilirubin 0.6 mg/dL (0.2-1.0) Aspartate Amino Transferase (AST) 18 U/L (13-40) Alanine Aminotransferase (ALT) 14 U/L (7-40) Alkaline Phosphatase 59 U/L (46-116) Total Protein 5.4 g/dL (5.7-8.2) Albumin 3.1 g/dL (3.2-4.8) Magnesium Level 2.2 mg/dL (1.6-2.6) Test 10/04/24 03:17 10/03/24 01:10 10/03/24 00:26 10/02/24 21:38 Differential Total Cells Counted 100.0 (100) Neutrophils % (Manual) 98 (37.0-80.0) Band Neutrophils % (Manual) 0 Lymphocytes % (Manual) 2 (10.0-50.0) Monocytes % (Manual) 0 (0-12) Eosinophils % (Manual) 0 (0-7) Basophils % (Manual) 0 (0.0-2.0) Metamyelocytes % (manual) 0 Myelocytes % (Manual) 0 Promyelocytes % (Manual) 0 Blast Cells % (Manual) 0 Reactive Lymphocytes 0 Platelet Estimate Adequate Lactic Acid Level 1.2 mmol/L (0.4-2.0) Troponin I High Sensitivity 3 ng/L (</=54) Urine Color Yellow (Yellow) Urine Clarity Clear (Clear) Urine pH 5.5 (5.0-9.0) Urine Specific Venus 1.024 (1.001-1.035) Urine Protein Trace (Negative) Urine Ketones Negative (Negative) Urine Blood Trace /uL (Negative) Urine Nitrite Negative (Negative) Urine Bilirubin Negative (Negative) Urine Urobilinogen 2 mg/dL (Negative) Urine Leukocyte Esterase Negative /uL (Negative) Urine RBC 1 /hpf (0 - 3) Urine WBC 1 /hpf (0 - 3) Urine Squamous Epithelial Cells Few /hpf (<5) Urine Bacteria None seen /hpf (None Seen) Urine Hyaline Casts Few /lpf (0 - 2) Urine Mucus Few (None Seen) Urine Glucose Normal mg/dL (Normal) Test 10/02/24 21:04 B-Type Natriuretic Peptide 37.62 pg/mL (0-100) Lipase 29 U/L (12-53) Other Laboratory Tests 10/08/24 04:00 Brief Hx & Hospital Course: Briefly, this is a 84-year-old male with past medical history of dementia, normal pressure hydrocephalus with recent PAYMENT PROCESSOR shunt placement, hypertension who was brought in by ambulance after noting an aspiration event at home. History is obtained by daughter, Christina who is also the decision maker for the patient. She stated that the patient was asleep on the couch watching a movie next to her brother when he woke up coughing. She notes that he was previously having a pizza dinner. EMS was called to the house and patient was noted to be hypoxic. She did not recall the patient ever expelling any foreign object. And route, the patient subsequently became increasingly hypoxic and was ultimately intubated. Patient was admitted to ICU for further management. Patient was evaluated by neurology. He had an EEG which did not suggest any underlying seizure. Infectious disease was consulted for rising WBC count but this ultimately improved with broad-spectrum IV antibiotics. Blood and urine cultures were negative. Patient underwent bronchoscopy which did not show any abnormal shamika. Patient was ultimately weaned off sedation and extubated on 10/08. He was noted to have copious amounts of secretions requiring suction several minutes apart. Patient was on high flow and noted to be tachycardic to the 110s. There was concern that the patient could no longer protect his airway. I had a discussion with the daughter, Christina about goals of care. She ultimately discussed goals of care with the family as well. Christina was able to have a family discussion and it was ultimately agreed that the patient would not want to be reintubated. They noted that the patient had previously made remarks prior to his hospitalization that he would not want to be on a ventilator for an extended period of time. I informed her that the decision to not reintubate would ultimately lead to the demise and of the patient. She and her family understood that this would be the outcome of the decision and requested the patient be made comfortable. It was agreed to make the patient DNR without any intubation or resuscitation measures. Final Diagnosis/Problems List 1. Acute Respiratory Failure due to Aspiration Secondary Diagnosis: 2. Normal Pressure Hydrocephalus s/p V/P Shunt 3. Hypertension 4. Sepsis-Resolved Discharge Disposition: Home Discharge Statement: "Patient was advised to return to the ER or call 911 if any headaches, dizziness, shortness of breath, chest pain, abdominal pain, bleeding, fevers, or worsening of medical condition. Patient was counseled about treatment plan, medications, possible side effects, patientverbalized understanding. All questions were answered to the best of my ability. This discharge took greater then 30 minutes in planning, reviewing documentation, counseling the patient, and discussing with other team members." ASSESSMENT ASSESSMENT Assessment DEEPA LUNA DO Oct 08, 2024 18:16
[2024-10-08] MEDS: ALBUTEROL SULF 2.5 MG/0.5ML(0.5%) NEB SOLN HHN SCH (18:19)
[2024-10-08] MEDS: IPRATROPIUM BROM 0.5 MG/2.5ML INH SOL NEB SCH (18:20)
[2024-10-08] MEDS ORDERED: MORPHINE SULFATE 4 MG/ML SYR/VIAL IV PRN (18:30)
[2024-10-08] MEDS ORDERED: LORazepam 2MG/ML-1ML VIAL IV PRN (18:30)
--- NOTE | 2024-10-08 21:10 | DVHPN2 ---
Progress Note - Dictate Date Seen: Oct 08, 2024 Medical Necessity Reason Pt with a Central, PICC or Fol: Yes The following are medically ne: Moody Catheter Reason for moody catheter: Strict I&O Subjective Patient seen and examined at bedside. S/p extubation, on supplemental oxygen. Overnight events reviewed. vital signs Vital Sign Date Time Temp Pulse Resp B/P (MAP) Pulse Ox O2 Delivery O2 Flow Rate FiO2 10/08/24 18:45 110 13 122/74 (90) 99 10/08/24 18:21 Mask 8.0 10/08/24 18:21 35 35 10/08/24 10:30 99.3 210.7 Total Intake and Output 10/07/24 10/07/24 10/08/24 15:00 23:00 07:00 Intake Total 425 ml 0 ml 80 ml Output Total 302 ml 310 ml Balance 425 ml -302 ml -230 ml medications Current Medications Medications Dose Ordered Sig/Larissa Route Start Time Stop Time Status Last Admin Dose Admin Midazolam HCl 50 ml @ 1 mls/hr Q24H IV 10/02/24 23:00 10/07/24 02:31 6 MLS/HR Nitroglycerin 0.4 mg Q5MINP PRN SL 10/03/24 01:45 Morphine Sulfate 2 mg Q30M PRN IV 10/03/24 01:45 Ondansetron HCl 4 mg Q6HPRN PRN IV 10/03/24 01:45 Norepinephrine Bitartrate 250 ml @ 3.75 mls/hr Q24H IV 10/03/24 03:00 10/04/24 03:16 3.75 MLS/HR Ceftriaxone Sodium/Dextrose 50 ml @ 50 mls/hr DAILY IV 10/03/24 10:00 10/08/24 10:21 50 MLS/HR Hydralazine HCl 20 mg Q4HR PRN IV 10/03/24 22:15 10/05/24 02:08 20 MG Pantoprazole Sodium 40 mg DAILY IV 10/04/24 20:00 10/08/24 10:21 40 MG Heparin Sodium (Porcine) 5,000 units Q12HR SC 10/04/24 22:00 10/08/24 10:22 5,000 UNITS Enteral Nutritional Formula 1,000 ml 40ML/HR GT 10/05/24 17:30 10/07/24 18:14 1,000 ML Dexmedetomidine HCl 400 mcg/ Dextrose 100 ml @ 3.15 mls/hr Q24H IV 10/07/24 19:00 Albuterol 2.5 mg Q4HR HHN 10/08/24 18:00 10/08/24 18:19 2.5 MG Ipratropium [place] 0.5 mg Q4HP NEB 10/08/24 18:00 10/08/24 18:20 0.5 MG Acetylcysteine 200 mg Q8HR IN 10/08/24 22:00 Glycopyrrolate 0.2 mg Q6HP PRN IV 10/08/24 18:00 Morphine Sulfate 4 mg Q30MIN PRN IV 10/08/24 18:30 Lorazepam 2 mg Q15MP PRN IV 10/08/24 18:30 objective Gen.: Patient lying in bed in no apparent distress. On supplemental oxygen. Head: Normocephalic, atraumatic. Eyes: EOMI/PERRLA. Ears: Normal hearing. Normal anatomy. Neck/trachea: Trachea midline, supple. Nose: Normal external anatomy. Mouth: Moist mucous membranes. Chest: Decreased air entry bilaterally. No wheezing or rhonchi. Cardiovascular: Positive S1, positive S2. Regular rate and rhythm. Abdomen: Positive bowel sounds in all 4 quadrants. Soft, non-tender, non- distended. : Deferred. Rectal: Deferred. Skin: Warm, dry. Intact. Extremities: 2+ radial pulses bilaterally. No lower extremity edema. Neuro: Awake, alert, oriented x3. No gross motor or sensory deficits. Cranial nerves II through XII intact. Gait not assessed. 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 Events: EEG showed no abnormalities. Patient tolerated CPAP today ABG, weaning parameters reviewed. Extubated uneventfully, placed on Cool aerosol mask. Off sedation Head of bed elevation Aspiration precautions Continue antibiotics Swallow eval. IV fluids at 100 ml/hr Monitor renal function Labs and imaging reviewed. Rest of plan as noted below. Plan: s/p extubation On supplemental oxygen. Neurology recommendations appreciated. Continue antibiotics. F/u cultures. Start pressors if necessary to maintain a mean arterial blood pressure greater than 65 mmHg. Monitor renal function Monitor electrolytes. Supplement as necessary. Monitor ins and outs. Maintain euvolemia. GI prophylaxis. DVT prophylaxis. Prognosis: Poor given patient's multiple co-morbidities. Condition: Critical Rest of plan per hospitalist and other consultants. A total of 35 minutes of critical care time was spent reviewing the patient record, examining the patient, making a diagnostic and therapeutic plan, discussing this plan with the medical personnel, following up on diagnostic studies and following the patient for clinical stability excluding any and all procedures. At least 50% of this time was spent in direct, [id number] contact. Thank you Dr. Basia Healy MD, for allowing me to participate in this patient's care. Further recommendations will depend on the patient's clinical course. Please do not hesitate to contact me if you have any questions or concerns. This medical document was created using an electronic medical record system with [employer] dictation system. Although these documentations are being carefully reviewed, there may still be some phonetic and typographical changes. The errors are purely typographical, due to imperfection on the software program, and do not reflect any compromise in the patient's medical care. Dietary Evaluation Review Comments: 1. If pt extubated, follow S/P for regular PO diet texture recommendations 2. If not extubated, start Jevity 1.2 @10ml/hr and increase 10ml/hr Q Shift till goal of 50ml/hr 1440 Kcal 67g Protein 968ml Free Water Expected Outcomes/Goals: 1. pt will consume >75% of estimated needs within 3-5 days Plan discussed with: Other (RN) Critical Care Time(min): 35 Respiratory Effort: ET Tube Breath sounds: Clear, Crackles, Rhonchi, Diminished Skin Moisture: Moist TRUONG HARRIS MD Oct 08, 2024 21:10
[2024-10-08] MEDS: ACETYLCYSTEINE 20%(200MG/ML) SOL 4ML IN SCH (22:32)
--- NOTE | 2024-10-08 22:32 | DVHPN2 ---
Consult Progress Note Date Seen: Oct 08, 2024 Subjective Patient reports: Other (extubated , on 10 liters nasal canula , somehwat confused , hoarse throat , tachycardic and mildy agitated ) Objective vital signs Vital Sign Date Time Temp Pulse Resp B/P (MAP) Pulse Ox O2 Delivery O2 Flow Rate FiO2 10/08/24 18:45 110 13 122/74 (90) 99 10/08/24 18:21 Mask 8.0 10/08/24 18:21 35 35 10/08/24 10:30 99.3 210.7 Total Intake and Output 10/07/24 10/07/24 10/08/24 15:00 23:00 07:00 Intake Total 425 ml 0 ml 80 ml Output Total 302 ml 310 ml Balance 425 ml -302 ml -230 ml medications Current Medications Medications Dose Ordered Sig/Larissa Route Start Time Stop Time Status Last Admin Dose Admin Midazolam HCl 50 ml @ 1 mls/hr Q24H IV 10/02/24 23:00 10/07/24 02:31 6 MLS/HR Nitroglycerin 0.4 mg Q5MINP PRN SL 10/03/24 01:45 Morphine Sulfate 2 mg Q30M PRN IV 10/03/24 01:45 Ondansetron HCl 4 mg Q6HPRN PRN IV 10/03/24 01:45 Norepinephrine Bitartrate 250 ml @ 3.75 mls/hr Q24H IV 10/03/24 03:00 10/04/24 03:16 3.75 MLS/HR Hydralazine HCl 20 mg Q4HR PRN IV 10/03/24 22:15 10/05/24 02:08 20 MG Pantoprazole Sodium 40 mg DAILY IV 10/04/24 20:00 10/08/24 10:21 40 MG Heparin Sodium (Porcine) 5,000 units Q12HR SC 10/04/24 22:00 10/08/24 20:54 5,000 UNITS Enteral Nutritional Formula 1,000 ml 40ML/HR GT 10/05/24 17:30 10/07/24 18:14 1,000 ML Dexmedetomidine HCl 400 mcg/ Dextrose 100 ml @ 3.15 mls/hr Q24H IV 10/07/24 19:00 Albuterol 2.5 mg Q4HR HHN 10/08/24 18:00 10/08/24 18:19 2.5 MG Ipratropium [place] 0.5 mg Q4HP NEB 10/08/24 18:00 10/08/24 18:20 0.5 MG Acetylcysteine 200 mg Q8HR IN 10/08/24 22:00 Glycopyrrolate 0.2 mg Q6HP PRN IV 10/08/24 18:00 Morphine Sulfate 4 mg Q30MIN PRN IV 10/08/24 18:30 Lorazepam 2 mg Q15MP PRN IV 10/08/24 18:30 Cefepime HCl 50 ml @ 12.5 mls/hr Q8HR IV 10/08/24 22:00 Physical Exam: General: Patient on 10 liters nasal canula sedated, grimacing minimally to pain. Neck: Supple. No masses. HEENT: Gag reflex present. PERRL. Normal lids and conjunctiva. Moist mucous membranes. Oropharynx without lesions, exudates, or excessive erythema. Normal appearance of the external aspects of the nose and ears. Heart: Regular rhythm, normal rate. No murmur. Lungs: Intubated. Breath sounds present bilaterally. Thick dark-colored sputum noted. rails in lungs bilaterally Abdomen: Soft. Non-tender. Non-distended. Normal bowel sounds. No masses or abdominal hernia. Musculoskeletal: No notable movement. Skin: Warm and dry. No rashes. Neuro: Intubated and sedated, grimacing minimally to pain. Gag reflex present. Psych: Baseline dementia. 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 male with a past medical history of dementia, recurrent urinary tract infections, recurrent TIAs, and PRESCHOOL ASSISTANT PRINCIPAL shunt placement, who presents with acute hypoxic respiratory failure likely secondary to aspiration pneumonia. Per EMS, the patient was at home when he choked on pizza, vomited, and became unresponsive. He was intubated urgently in the ED upon arrival for acute respiratory failure. On admission, the patient was intubated and sedated, grimacing minimally to pain with a gag reflex present. He was hypoxic and hypertensive. Laboratory studies showed WBC 9.6, Hgb 11.3, platelets 255, sodium 145, creatinine 0.76, lactic acid 1.2, and normal liver enzymes. Imaging studies revealed left basilar opacification consistent with pleural effusion and associated atelectasis on chest X-ray. Head CT showed no acute findings but chronic periventricular ischemic changes. Microbiology data showed sputum cultures with normal respiratory shamika and no growth. Blood and urine cultures have been negative to date. The patient has been febrile since the and continues to have fevers into the . The patient underwent bronchoscopy yesterday; cultures from the bronchoalveolar lavage are pending. 10/07: Patient underwent broncoscopy yesterday and results showed there was muccus plugging form L6-L10 and R4-R10 and BAL was preformed and sent for cultures . there was bilateral lower lobe eight electosis due to mucus plugging. EEG was done and theres abnormal severe diffuse nonspecific encephalopathic state possibly related to deep sedation but no defitite epiletiform . Urology saw patient and switched out catherter and sent urine culture 10/08: White count continues to downtred , bronch cultures shows many growth of gram negative rods Plan: - recommend antibiotic coverage from ceftriaxone to cefapine due to bronch - follow up on BAL cultures and speciation and sensitivity of gran neg. noemi - Follow up on BAL cultures , urine cultures - Monitor fever curve and white count - Continue ceftriaxone (Rocephin) for now. - Await bronchoscopy results, specifically bacterial cultures from the bronchoalveolar lavage. - If an organism is identified from bronchoscopy or if pneumonia progresses, recommend thoracentesis of the pleural effusion to evaluate for possible empyema. Pleural fluid analysis should include protein, LDH, cell count, bacterial culture, and pH. - Hold off on thoracentesis at this time pending bronchoscopic results. - No need to broaden antibiotics at this time. Isolation Precautions: Standard Authorized and Performed by: keith bell Total critical care time: Approximately 75 minutes Due to a high probability of clinically significant, life threatening deterioration, the patient required my highest level of preparedness to intervene emergently and I personally spent this critical care time directly and personally managing the patient. This critical care time included obtaining a history; examining the patient; pulse oximetry; ordering and review of studies; arranging urgent treatment with development of a management plan; evaluation of patient's response to treatment; frequent reassessment; and, discussions with other providers. This critical care time was performed to assess and manage the high probability of imminent, life-threatening deterioration that could result in multi-organ failure. It was exclusive of separately billable procedures and treating other patients and teaching time. Assessment and plan were discussed with the care team as written above. Plan is subject to change pending incorporation of new incoming information/diagnostics. Updates may be added as an addendum at the bottom (OR TOP) of this note. Thank you for interesting consult. ID will continue to follow. Please contact Infectious Disease for any questions or concerns. Keith Bell M.D. [facility] Plan discussed with: Other Dietary Evaluation Review Comments: 1. If pt extubated, follow S/P for regular PO diet texture recommendations 2. If not extubated, start Jevity 1.2 @10ml/hr and increase 10ml/hr Q Shift till goal of 50ml/hr 1440 Kcal 67g Protein 968ml Free Water Expected Outcomes/Goals: 1. pt will consume >75% of estimated needs within 3-5 days KEITH BELL MD Oct 08, 2024 22:32
[2024-10-08] MEDS: CEFEPIME 2GM/50ML NS 50 ML IV SCH (23:46)
[2024-10-09] VITALS (45 sets, daily range): BP systolic 100–127; BP diastolic 43–76; PULSE 77–104; RESP 10–20; TEMP 98.4–99.5; O2SAT 96–100
[2024-10-09 03:56] LABS: Basophils # (auto) 0 10 ^3/uL (0-0.2); Basophils % (auto) 0.2 % (0.0-2.0); Eosinophils # (auto) 0.1 10 ^3/uL (0-0.8); Eosinophils % (auto) 0.6 % (0.0-7.0); Hemoglobin 11.3 g/dL (13.5-17.5); Lymphocytes # (auto) 0.8 10 ^3/uL (0.4-5.4); Lymphocytes % (auto) 8.4 % (10.0-50.0); Mean Corpuscular Hgb Conc. 34.2 g/dL (32.0-36.0); Mean Corpuscular Volume 90.7 fL (80.0-100.0); Monocytes # (auto) 1.3 10 ^3/uL (0-1.3); Neutrophils # (auto) 7.9 10 ^3/uL (1.6-8.6); Neutrophils % (auto) 77.8 % (37.0-80.0); Platelet Count (auto) 215 10^3/uL (140-450); Red Blood Cells 3.63 10^6/uL (4.5-5.90); Red Cell Distribution Width 13.5 % (11.8-14.3); White Blood Cell 10.1 10^3/uL (4.4-10.8)
[2024-10-09 04:02] LABS: Chloride 110 mmol/L (98-107); Potassium 3.5 mmol/L (3.5-5.1); Sodium 146 mmol/L (136-145)
[2024-10-09 04:03] LABS: Anion Gap 10 (5-15); Carbon Dioxide 26 mmol/L (20-31)
[2024-10-09 04:04] LABS: Calcium 9.2 mg/dL (8.7-10.4)
[2024-10-09 04:09] LABS: BUN/Creatinine Ratio 18.7 (10.0-20.0); Blood Urea Nitrogen 14 mg/dL (9-23); Glucose 79 mg/dL (74-106)
--- NOTE | 2024-10-09 06:04 | DVHPN2 ---
Progress Note Date Seen: Oct 09, 2024 Has the PT tested + for MRSA If YES, has PT been informed?: No Medical Necessity Reason Pt with a Central, PICC or Fol: Yes The following are medically ne: Moody Catheter Reason for moody catheter: Strict I&O Subjective Patient reports: Other Review of Systems: Not Done Objective vital signs Vital Sign Date Time Temp Pulse Resp B/P (MAP) Pulse Ox O2 Delivery O2 Flow Rate FiO2 10/09/24 05:00 90 13 120/54 (76) 100 10/09/24 04:00 99.3 99.3 10/09/24 04:00 Nasal Cannula* 2 28 Total Intake and Output 10/08/24 10/08/24 10/09/24 15:00 23:00 07:00 Intake Total 0 ml 50.0 ml Balance 0 ml 50.0 ml medications Current Medications Medications Dose Ordered Sig/Larissa Route Start Time Stop Time Status Last Admin Dose Admin Midazolam HCl 50 ml @ 1 mls/hr Q24H IV 10/02/24 23:00 10/07/24 02:31 6 MLS/HR Nitroglycerin 0.4 mg Q5MINP PRN SL 10/03/24 01:45 Morphine Sulfate 2 mg Q30M PRN IV 10/03/24 01:45 Ondansetron HCl 4 mg Q6HPRN PRN IV 10/03/24 01:45 Norepinephrine Bitartrate 250 ml @ 3.75 mls/hr Q24H IV 10/03/24 03:00 10/04/24 03:16 3.75 MLS/HR Hydralazine HCl 20 mg Q4HR PRN IV 10/03/24 22:15 10/05/24 02:08 20 MG Pantoprazole Sodium 40 mg DAILY IV 10/04/24 20:00 10/08/24 10:21 40 MG Heparin Sodium (Porcine) 5,000 units Q12HR SC 10/04/24 22:00 10/08/24 20:54 5,000 UNITS Enteral Nutritional Formula 1,000 ml 40ML/HR GT 10/05/24 17:30 10/07/24 18:14 1,000 ML Dexmedetomidine HCl 400 mcg/ Dextrose 100 ml @ 3.15 mls/hr Q24H IV 10/07/24 19:00 Albuterol 2.5 mg Q4HR HHN 10/08/24 18:00 10/09/24 02:26 2.5 MG Ipratropium [place] 0.5 mg Q4HP NEB 10/08/24 18:00 10/09/24 02:26 0.5 MG Acetylcysteine 200 mg Q8HR IN 10/08/24 22:00 10/08/24 22:32 200 MG Glycopyrrolate 0.2 mg Q6HP PRN IV 10/08/24 18:00 Morphine Sulfate 4 mg Q30MIN PRN IV 10/08/24 18:30 Lorazepam 2 mg Q15MP PRN IV 10/08/24 18:30 Cefepime HCl 50 ml @ 12.5 mls/hr Q8HR IV 10/08/24 22:00 10/09/24 05:42 12.5 MLS/HR Examination: NECK:Normal, LUNGS:Abnormal, CVS:Normal laboratory and microbiology Laboratory Tests 10/09/24 03:33 Test 10/09/24 03:33 Range/Units Serum Glucose 79 74-106 mg/dL Problem List/Assessment/Plan Problem List/Assessment/Plan 1) Acute respiratory failure, extubated 2) PNA 3) NPH s/p COPPING MACHINE OPERATOR shunt plan; extubated yesterday, on 2L o2 via [place], downgraded to tele, PT/ST eval, IV Abx as per ID, WBC nml this AM, bronch washings show gram neg rods however patient appropriately covered with IV Abx, DNR as per family, will follow Plan discussed with: Other (n) Dietary Evaluation Review Comments: 1. If pt extubated, follow S/P for regular PO diet texture recommendations 2. If not extubated, start Jevity 1.2 @10ml/hr and increase 10ml/hr Q Shift till goal of 50ml/hr 1440 Kcal 67g Protein 968ml Free Water Expected Outcomes/Goals: 1. pt will consume >75% of estimated needs within 3-5 days Sepsis reassessment post fluid Respiratory Effort: ET Tube Breath sounds: Clear, Crackles, Rhonchi, Diminished Skin Moisture: Moist RASTA NOBLE MD Oct 09, 2024 06:04
--- NOTE | 2024-10-09 06:49 | DVHPN2 ---
Progress Note - Dictate Date Seen: Oct 08, 2024 Has the PT tested + for MRSA If YES, has PT been informed?: No Medical Necessity Reason Pt with a Central, PICC or Fol: Yes The following are medically ne: Moody Catheter Reason for moody catheter: Strict I&O Subjective Seen in ICU with no acute neurological issues noted. Successfully extubated earlier today vital signs Vital Sign Date Time Temp Pulse Resp B/P (MAP) Pulse Ox O2 Delivery O2 Flow Rate FiO2 10/09/24 06:27 88 14 100 10/09/24 06:21 Nasal Cannula* 2 28 10/09/24 06:00 107/50 (69) 10/09/24 04:00 99.3 99.3 Total Intake and Output 10/08/24 10/08/24 10/09/24 15:00 23:00 07:00 Intake Total 0 ml 62.5 ml Output Total 230 ml Balance 0 ml -167.5 ml medications Current Medications Medications Dose Ordered Sig/Larissa Route Start Time Stop Time Status Last Admin Dose Admin Midazolam HCl 50 ml @ 1 mls/hr Q24H IV 10/02/24 23:00 10/07/24 02:31 6 MLS/HR Nitroglycerin 0.4 mg Q5MINP PRN SL 10/03/24 01:45 Morphine Sulfate 2 mg Q30M PRN IV 10/03/24 01:45 Ondansetron HCl 4 mg Q6HPRN PRN IV 10/03/24 01:45 Norepinephrine Bitartrate 250 ml @ 3.75 mls/hr Q24H IV 10/03/24 03:00 10/04/24 03:16 3.75 MLS/HR Hydralazine HCl 20 mg Q4HR PRN IV 10/03/24 22:15 10/05/24 02:08 20 MG Pantoprazole Sodium 40 mg DAILY IV 10/04/24 20:00 10/08/24 10:21 40 MG Heparin Sodium (Porcine) 5,000 units Q12HR SC 10/04/24 22:00 10/08/24 20:54 5,000 UNITS Enteral Nutritional Formula 1,000 ml 40ML/HR GT 10/05/24 17:30 10/07/24 18:14 1,000 ML Dexmedetomidine HCl 400 mcg/ Dextrose 100 ml @ 3.15 mls/hr Q24H IV 10/07/24 19:00 Albuterol 2.5 mg Q4HR HHN 10/08/24 18:00 10/09/24 06:21 2.5 MG Ipratropium [place] 0.5 mg Q4HP NEB 10/08/24 18:00 10/09/24 06:21 0.5 MG Acetylcysteine 200 mg Q8HR IN 10/08/24 22:00 10/09/24 06:21 200 MG Glycopyrrolate 0.2 mg Q6HP PRN IV 10/08/24 18:00 Morphine Sulfate 4 mg Q30MIN PRN IV 10/08/24 18:30 Lorazepam 2 mg Q15MP PRN IV 10/08/24 18:30 Cefepime HCl 50 ml @ 12.5 mls/hr Q8HR IV 10/08/24 22:00 10/09/24 05:42 12.5 MLS/HR objective Mental status: The patient is awake, somnolent, speech is fluent but voice is hoarse, follows simple commands Cranial nerves II through XII: Pupils are 2 to 3 mm sluggish reactive to light. EOMI. No facial asymmetry seen Motor examination: At least 2+/5 movements of upper limbs to pain. laboratory and microbiology Laboratory Tests 10/09/24 03:33 Test 10/09/24 03:33 Range/Units Serum Glucose 79 74-106 mg/dL Assessment/Plan Acute respiratory failure Acute septic/toxicmetabolic encephalopathy Pneumonia Improved shock state Continue supportive care. Management of concurrent active medical problems potentially contributing to encephalopathy deferred to other specialty services. Septic workup ongoing Will follow. Dietary Evaluation Review Comments: 1. If pt extubated, follow S/P for regular PO diet texture recommendations 2. If not extubated, start Jevity 1.2 @10ml/hr and increase 10ml/hr Q Shift till goal of 50ml/hr 1440 Kcal 67g Protein 968ml Free Water Expected Outcomes/Goals: 1. pt will consume >75% of estimated needs within 3-5 days Respiratory Effort: ET Tube Breath sounds: Clear, Crackles, Rhonchi, Diminished Skin Moisture: Moist LASHAUN FORBES MD Oct 09, 2024 06:49
[2024-10-10] VITALS (19 sets, daily range): BP systolic 109–140; BP diastolic 51–78; PULSE 70–100; RESP 16–22; TEMP 97.4–99.3; O2SAT 71–100
[2024-10-10] MEDS: IPRATROPIUM BROM 0.5 MG/2.5ML INH SOL NEB SCH (02:09)
--- NOTE | 2024-10-10 04:57 | DVHPN2 ---
Progress Note Date Seen: Oct 10, 2024 Has the PT tested + for MRSA If YES, has PT been informed?: No Medical Necessity Reason Pt with a Central, PICC or Fol: Yes The following are medically ne: Moody Catheter Reason for moody catheter: Strict I&O Subjective Patient reports: No new complaints Review of Systems: Not Done Objective vital signs Vital Sign Date Time Temp Pulse Resp B/P (MAP) Pulse Ox O2 Delivery O2 Flow Rate FiO2 10/10/24 02:11 75 18 100 10/10/24 01:00 99.3 109/51 (70) 99.3 10/09/24 20:00 Nasal Cannula* 2 28 Total Intake and Output 10/09/24 10/09/24 10/10/24 15:00 23:00 07:00 Intake Total 50 ml Balance 50 ml medications Current Medications Medications Dose Ordered Sig/Larissa Route Start Time Stop Time Status Last Admin Dose Admin Midazolam HCl 50 ml @ 1 mls/hr Q24H IV 10/02/24 23:00 10/07/24 02:31 6 MLS/HR Nitroglycerin 0.4 mg Q5MINP PRN SL 10/03/24 01:45 Morphine Sulfate 2 mg Q30M PRN IV 10/03/24 01:45 Ondansetron HCl 4 mg Q6HPRN PRN IV 10/03/24 01:45 Norepinephrine Bitartrate 250 ml @ 3.75 mls/hr Q24H IV 10/03/24 03:00 10/04/24 03:16 3.75 MLS/HR Hydralazine HCl 20 mg Q4HR PRN IV 10/03/24 22:15 10/05/24 02:08 20 MG Pantoprazole Sodium 40 mg DAILY IV 10/04/24 20:00 10/09/24 12:37 40 MG Heparin Sodium (Porcine) 5,000 units Q12HR SC 10/04/24 22:00 10/09/24 23:20 5,000 UNITS Enteral Nutritional Formula 1,000 ml 40ML/HR GT 10/05/24 17:30 10/07/24 18:14 1,000 ML Dexmedetomidine HCl 400 mcg/ Dextrose 100 ml @ 3.15 mls/hr Q24H IV 10/07/24 19:00 Albuterol 2.5 mg Q4HR HHN 10/08/24 18:00 10/10/24 02:09 2.5 MG Acetylcysteine 200 mg Q8HR IN 10/08/24 22:00 10/10/24 00:30 200 MG Glycopyrrolate 0.2 mg Q6HP PRN IV 10/08/24 18:00 Ceftriaxone Sodium 50 ml @ 100 mls/hr DAILY@09 IV 10/10/24 09:00 Ipratropium [place] 0.5 mg Q4HR NEB 10/10/24 02:00 10/10/24 02:09 0.5 MG Examination: GENERAL:Abnormal, LUNGS:Abnormal, CVS:Normal, ABDOMEN:Normal laboratory and microbiology Laboratory Tests 10/09/24 03:33 Test 10/09/24 03:33 Range/Units Serum Glucose 79 74-106 mg/dL Problem List/Assessment/Plan Problem List/Assessment/Plan 1) Acute respiratory failure, extubated 2) PNA 3) NPH s/p EARLY BREASTFEEDING CARE SPECIALIST shunt plan; extubated 10/08, on 2L o2 via [place], downgraded to tele, had ST eval yesterday and did not pass as patient unable to follow directions as per ST note, IV Abx as per ID, labs pending this AM, bronch washings cultures appreciated with current IV Abx to continue, DNR as per family, will reattempt ST eval, supportive care, will follow Plan discussed with: Other (n) Dietary Evaluation Review Comments: 1. If pt extubated, follow S/P for regular PO diet texture recommendations 2. If not extubated, start Jevity 1.2 @10ml/hr and increase 10ml/hr Q Shift till goal of 50ml/hr 1440 Kcal 67g Protein 968ml Free Water Expected Outcomes/Goals: 1. pt will consume >75% of estimated needs within 3-5 days Sepsis reassessment post fluid Respiratory Effort: ET Tube Breath sounds: Clear, Crackles, Rhonchi, Diminished Skin Moisture: Moist RASTA NOBLE MD Oct 10, 2024 04:57
--- NOTE | 2024-10-10 09:09 | DVHPN2 ---
Progress Note Date Seen: Oct 10, 2024 Has the PT tested + for MRSA If YES, has PT been informed?: No Medical Necessity Reason Pt with a Central, PICC or Fol: Yes The following are medically ne: Moody Catheter Reason for moody catheter: Strict I&O Subjective Review of Systems: RESPIRATORY:Abnormal Objective vital signs Vital Sign Date Time Temp Pulse Resp B/P (MAP) Pulse Ox O2 Delivery O2 Flow Rate FiO2 10/10/24 08:00 73 20 98 Nasal Cannula* 2 28 10/10/24 05:00 97.4 111/72 (85) 97.4 Total Intake and Output 10/09/24 10/09/24 10/10/24 15:00 23:00 07:00 Intake Total 50 ml Balance 50 ml medications Current Medications Medications Dose Ordered Sig/Larissa Route Start Time Stop Time Status Last Admin Dose Admin Midazolam HCl 50 ml @ 1 mls/hr Q24H IV 10/02/24 23:00 10/07/24 02:31 6 MLS/HR Nitroglycerin 0.4 mg Q5MINP PRN SL 10/03/24 01:45 Morphine Sulfate 2 mg Q30M PRN IV 10/03/24 01:45 Ondansetron HCl 4 mg Q6HPRN PRN IV 10/03/24 01:45 Norepinephrine Bitartrate 250 ml @ 3.75 mls/hr Q24H IV 10/03/24 03:00 10/04/24 03:16 3.75 MLS/HR Hydralazine HCl 20 mg Q4HR PRN IV 10/03/24 22:15 10/05/24 02:08 20 MG Pantoprazole Sodium 40 mg DAILY IV 10/04/24 20:00 10/09/24 12:37 40 MG Heparin Sodium (Porcine) 5,000 units Q12HR SC 10/04/24 22:00 10/09/24 23:20 5,000 UNITS Enteral Nutritional Formula 1,000 ml 40ML/HR GT 10/05/24 17:30 10/07/24 18:14 1,000 ML Dexmedetomidine HCl 400 mcg/ Dextrose 100 ml @ 3.15 mls/hr Q24H IV 10/07/24 19:00 Albuterol 2.5 mg Q4HR HHN 10/08/24 18:00 10/10/24 07:28 2.5 MG Acetylcysteine 200 mg Q8HR IN 10/08/24 22:00 10/10/24 07:28 200 MG Glycopyrrolate 0.2 mg Q6HP PRN IV 10/08/24 18:00 Ceftriaxone Sodium 50 ml @ 100 mls/hr DAILY@09 IV 10/10/24 09:00 Ipratropium [place] 0.5 mg Q4HR NEB 10/10/24 02:00 10/10/24 07:28 0.5 MG Examination: LUNGS:Abnormal laboratory and microbiology Laboratory Tests 10/09/24 03:33 Test 10/09/24 03:33 Range/Units Serum Glucose 79 74-106 mg/dL Microbiology Date/Time Source Procedure Growth Status 10/07/24 12:25 Urine - [place] Urine Culture - Final Complete 10/07/24 11:00 Blood Blood Culture - Preliminary NO GROWTH AFTER 48 HOURS OF INCUBATION. Resulted 10/06/24 22:00 Bronchial Washings Gram Stain - Final Complete 10/06/24 22:00 Respiratory Culture - Final Acinetobacter baumannii MDRO Complete 10/04/24 02:40 Nose MRSA Screen - Final Complete Labs and/or images reviewed: Labs reviewed by me, Image(s) reviewed by me Problem List/Assessment/Plan Problem List/Assessment/Plan pulm 1 acute resp failure 2 m ventilation cxr and abg good plan once e e g is done d c sedation and c p a p 8/5do abg and call results pulm 10/07/24pt is vented off sedation now c p a p when awake and and continue med neb treatments 10/10/24 pt i s extubated need to continue pulm toilet and p d and p cxr in a m pt is on 2 l Plan discussed with: Other Dietary Evaluation Review Comments: 1. If pt extubated, follow S/P for regular PO diet texture recommendations 2. If not extubated, start Jevity 1.2 @10ml/hr and increase 10ml/hr Q Shift till goal of 50ml/hr 1440 Kcal 67g Protein 968ml Free Water Expected Outcomes/Goals: 1. pt will consume >75% of estimated needs within 3-5 days Sepsis reassessment post fluid Respiratory Effort: ET Tube Breath sounds: Clear, Crackles, Rhonchi, Diminished Skin Moisture: Moist NICHOLAS SAENZ MD Oct 10, 2024 09:09
[2024-10-10] MEDS: cefTRIAXone 1GM/50ML D5W 50 ML IV SCH (10:40)
--- NOTE | 2024-10-10 11:37 | DVH ---
CHEST RADIOGRAPH Indication: resp failure Technique: Single frontal view of the chest was obtained Comparison: XY CHEST PORTABLE on DOS: 10/08/24, XY CHEST PORTABLE on DOS: 10/07/24, XY CHEST PORTABLE on DOS: 10/05/24, XY CHEST PORTABLE on DOS: 10/04/24, XY CHEST XRAY 1 VIEW on DOS: 10/02/24, XY CHES T PORTABLE on DOS: 10/08/24 FINDINGS: Lines and Tubes: none Lungs: Bilateral lower lung zone consolidation. Pleura: No effusion. No pneumothorax. Cardiomediastinal contours: Unremarkable Bones: No acute osseous abnormality. IMPRESSION: 1. Bilateral lower lung zone consolidation may reflect atelectasis or pneumonia.
--- NOTE | 2024-10-10 12:01 | DVHPN2 ---
Consult Progress Note Date Seen: Oct 09, 2024 Subjective Patient reports: Other (breathing well and mentating at his baseline (dementia) , on 3 liters nasal canula) Objective vital signs Vital Sign Date Time Temp Pulse Resp B/P (MAP) Pulse Ox O2 Delivery O2 Flow Rate FiO2 10/10/24 11:13 77 18 99 10/10/24 11:07 Nasal Cannula 2.0 10/10/24 11:07 28 10/10/24 09:00 97.6 126/60 (82) 97.6 Total Intake and Output 10/09/24 10/09/24 10/10/24 15:00 23:00 07:00 Intake Total 50 ml Balance 50 ml medications Current Medications Medications Dose Ordered Sig/Larissa Route Start Time Stop Time Status Last Admin Dose Admin Midazolam HCl 50 ml @ 1 mls/hr Q24H IV 10/02/24 23:00 10/07/24 02:31 6 MLS/HR Nitroglycerin 0.4 mg Q5MINP PRN SL 10/03/24 01:45 Morphine Sulfate 2 mg Q30M PRN IV 10/03/24 01:45 Ondansetron HCl 4 mg Q6HPRN PRN IV 10/03/24 01:45 Norepinephrine Bitartrate 250 ml @ 3.75 mls/hr Q24H IV 10/03/24 03:00 10/04/24 03:16 3.75 MLS/HR Hydralazine HCl 20 mg Q4HR PRN IV 10/03/24 22:15 10/05/24 02:08 20 MG Pantoprazole Sodium 40 mg DAILY IV 10/04/24 20:00 10/10/24 10:41 40 MG Heparin Sodium (Porcine) 5,000 units Q12HR SC 10/04/24 22:00 10/10/24 10:41 5,000 UNITS Enteral Nutritional Formula 1,000 ml 40ML/HR GT 10/05/24 17:30 10/07/24 18:14 1,000 ML Dexmedetomidine HCl 400 mcg/ Dextrose 100 ml @ 3.15 mls/hr Q24H IV 10/07/24 19:00 Albuterol 2.5 mg Q4HR HHN 10/08/24 18:00 10/10/24 11:07 2.5 MG Acetylcysteine 200 mg Q8HR IN 10/08/24 22:00 10/10/24 07:28 200 MG Glycopyrrolate 0.2 mg Q6HP PRN IV 10/08/24 18:00 Ceftriaxone Sodium 50 ml @ 100 mls/hr DAILY@09 IV 10/10/24 09:00 10/10/24 10:40 100 MLS/HR Ipratropium [place] 0.5 mg Q4HR NEB 10/10/24 02:00 10/10/24 11:07 0.5 MG Physical Exam: General: Patient on 10 liters nasal canula sedated, grimacing minimally to pain. Neck: Supple. No masses. HEENT: Gag reflex present. PERRL. Normal lids and conjunctiva. Moist mucous membranes. Oropharynx without lesions, exudates, or excessive erythema. Normal appearance of the external aspects of the nose and ears. Heart: Regular rhythm, normal rate. No murmur. Lungs: Intubated. Breath sounds present bilaterally. Thick dark-colored sputum noted. rails in lungs bilaterally Abdomen: Soft. Non-tender. Non-distended. Normal bowel sounds. No masses or abdominal hernia. Musculoskeletal: No notable movement. Skin: Warm and dry. No rashes. Neuro: Intubated and sedated, grimacing minimally to pain. Gag reflex present. Psych: Baseline dementia. laboratory and microbiology Laboratory Tests 10/09/24 03:33 Test 10/09/24 03:33 Range/Units Serum Glucose 79 74-106 mg/dL Problem List/Assessment/Plan Problems(with codes): (1) Pneumonia (2) Unresponsive (3) Aspiration into lower respiratory tract (4) Retention of urine Problem List/Assessment/Plan ASSESSMENT AND PLAN: ID Problem List: - Acute hypoxic respiratory failure - Left lower lobe pneumonia - Dementia - Recurrent urinary tract infections - Recurrent transient ischemic attacks (TIAs) - Ventriculoperitoneal (TIPPLE WORKER) shunt placement Assessment This is an 84 y.o. male with a past medical history of dementia, recurrent urinary tract infections, recurrent TIAs, and TIPPLE WORKER shunt placement, who presents with acute hypoxic respiratory failure likely secondary to aspiration pneumonia. Per EMS, the patient was at home when he choked on pizza, vomited, and became unresponsive. He was intubated urgently in the ED upon arrival for acute respiratory failure. On admission, the patient was intubated and sedated, grimacing minimally to pain with a gag reflex present. He was hypoxic and hypertensive. Laboratory studies showed WBC 9.6, Hgb 11.3, platelets 255, sodium 145, creatinine 0.76, lactic acid 1.2, and normal liver enzymes. Imaging studies revealed left basilar opacification consistent with pleural effusion and associated atelectasis on chest X-ray. Head CT showed no acute findings but chronic periventricular ischemic changes. Microbiology data showed sputum cultures with normal respiratory shamika and no growth. Blood and urine cultures have been negative to date. The patient has been febrile since the and continues to have fevers into the . The patient underwent bronchoscopy yesterday; cultures from the bronchoalveolar lavage are pending. 10/07: Patient underwent broncoscopy yesterday and results showed there was muccus plugging form L6-L10 and R4-R10 and BAL was preformed and sent for cultures . there was bilateral lower lobe eight electosis due to mucus plugging. EEG was done and theres abnormal severe diffuse nonspecific encephalopathic state possibly related to deep sedation but no defitite epiletiform . Urology saw patient and switched out catherter and sent urine culture 10/08: White count continues to downtred , bronch cultures shows many growth of gram negative rods 10/09: Improving respitatorily , respitory cultures show MDRO acinetobacter baumanii that is resistant to multiple organisms , improving on current antibiotic regimen. Plan: - stop cefepime and continue ceftriaxone to complete a 7-10 day course - recommend a chest x-ray if resp. status worsens and empirically starting fetroja , can hold off for now - continue daily chest x-ray for now - Follow up on BAL cultures , urine cultures - Monitor fever curve and white count Isolation Precautions: Standard Assessment and plan were discussed with the care team as written above. Plan is subject to change pending incorporation of new incoming information/diagnostics. Updates may be added as an addendum at the bottom (OR TOP) of this note. Thank you for interesting consult. ID will continue to follow. Please contact Infectious Disease for any questions or concerns. Naima Colón M.D. [facility] Plan discussed with: Other Dietary Evaluation Review Comments: 1. If pt extubated, follow S/P for regular PO diet texture recommendations 2. If not extubated, start Jevity 1.2 @10ml/hr and increase 10ml/hr Q Shift till goal of 50ml/hr 1440 Kcal 67g Protein 968ml Free Water Expected Outcomes/Goals: 1. pt will consume >75% of estimated needs within 3-5 days NAIMA COLÓN MD Oct 10, 2024 12:01
--- NOTE | 2024-10-10 22:12 | DVHPN2 ---
Consult Progress Note Date Seen: Oct 10, 2024 Subjective Patient reports: Other (was initially on and off confusion but when hes with it he did pass his swallow evaluation, tolerating puree diet, awake and alert. Has baseline dementia and cannot follow many commands ) Objective vital signs Vital Sign Date Time Temp Pulse Resp B/P (MAP) Pulse Ox O2 Delivery O2 Flow Rate FiO2 10/10/24 21:00 98.6 82 18 140/78 (98) 97 98.6 10/10/24 20:00 Nasal Cannula* 2 28 Total Intake and Output 10/09/24 10/09/24 10/10/24 15:00 23:00 07:00 Intake Total 50 ml Balance 50 ml medications Current Medications Medications Dose Ordered Sig/Larissa Route Start Time Stop Time Status Last Admin Dose Admin Midazolam HCl 50 ml @ 1 mls/hr Q24H IV 10/02/24 23:00 10/07/24 02:31 6 MLS/HR Nitroglycerin 0.4 mg Q5MINP PRN SL 10/03/24 01:45 Morphine Sulfate 2 mg Q30M PRN IV 10/03/24 01:45 Ondansetron HCl 4 mg Q6HPRN PRN IV 10/03/24 01:45 Norepinephrine Bitartrate 250 ml @ 3.75 mls/hr Q24H IV 10/03/24 03:00 10/04/24 03:16 3.75 MLS/HR Hydralazine HCl 20 mg Q4HR PRN IV 10/03/24 22:15 10/05/24 02:08 20 MG Pantoprazole Sodium 40 mg DAILY IV 10/04/24 20:00 10/10/24 10:41 40 MG Heparin Sodium (Porcine) 5,000 units Q12HR SC 10/04/24 22:00 10/10/24 21:25 5,000 UNITS Enteral Nutritional Formula 1,000 ml 40ML/HR GT 10/05/24 17:30 10/07/24 18:14 1,000 ML Dexmedetomidine HCl 400 mcg/ Dextrose 100 ml @ 3.15 mls/hr Q24H IV 10/07/24 19:00 Albuterol 2.5 mg Q4HR HHN 10/08/24 18:00 10/10/24 22:09 2.5 MG Acetylcysteine 200 mg Q8HR IN 10/08/24 22:00 10/10/24 22:09 200 MG Glycopyrrolate 0.2 mg Q6HP PRN IV 10/08/24 18:00 Ceftriaxone Sodium 50 ml @ 100 mls/hr DAILY@09 IV 10/10/24 09:00 10/10/24 10:40 100 MLS/HR Ipratropium [place] 0.5 mg Q4HR NEB 10/10/24 02:00 10/10/24 22:09 0.5 MG Physical Exam: General: Patient on 10 liters nasal canula sedated, grimacing minimally to pain. Neck: Supple. No masses. HEENT: Gag reflex present. PERRL. Normal lids and conjunctiva. Moist mucous membranes. Oropharynx without lesions, exudates, or excessive erythema. Normal appearance of the external aspects of the nose and ears. Heart: Regular rhythm, normal rate. No murmur. Lungs: Intubated. Breath sounds present bilaterally. Thick dark-colored sputum noted. rails in lungs bilaterally Abdomen: Soft. Non-tender. Non-distended. Normal bowel sounds. No masses or abdominal hernia. Musculoskeletal: No notable movement. Skin: Warm and dry. No rashes. Neuro: Intubated and sedated, grimacing minimally to pain. Gag reflex present. Psych: Baseline dementia. laboratory and microbiology Laboratory Tests 10/09/24 03:33 Test 10/09/24 03:33 Range/Units Serum Glucose 79 74-106 mg/dL Problem List/Assessment/Plan Problems(with codes): (1) Pneumonia (2) Unresponsive (3) Aspiration into lower respiratory tract (4) Retention of urine Problem List/Assessment/Plan ASSESSMENT AND PLAN: ID Problem List: - Acute hypoxic respiratory failure - Left lower lobe pneumonia - Dementia - Recurrent urinary tract infections - Recurrent transient ischemic attacks (TIAs) - Ventriculoperitoneal (PROFESSOR OF RELIGIOUS STUDIES) shunt placement Assessment This is an 84 y.o. male with a past medical history of dementia, recurrent urinary tract infections, recurrent TIAs, and PROFESSOR OF RELIGIOUS STUDIES shunt placement, who presents with acute hypoxic respiratory failure likely secondary to aspiration pneumonia. Per EMS, the patient was at home when he choked on pizza, vomited, and became unresponsive. He was intubated urgently in the ED upon arrival for acute respiratory failure. On admission, the patient was intubated and sedated, grimacing minimally to pain with a gag reflex present. He was hypoxic and hypertensive. Laboratory studies showed WBC 9.6, Hgb 11.3, platelets 255, sodium 145, creatinine 0.76, lactic acid 1.2, and normal liver enzymes. Imaging studies revealed left basilar opacification consistent with pleural effusion and associated atelectasis on chest X-ray. Head CT showed no acute findings but chronic periventricular ischemic changes. Microbiology data showed sputum cultures with normal respiratory shamika and no growth. Blood and urine cultures have been negative to date. The patient has been febrile since the and continues to have fevers into the . The patient underwent bronchoscopy yesterday; cultures from the bronchoalveolar lavage are pending. 10/07: Patient underwent broncoscopy yesterday and results showed there was muccus plugging form L6-L10 and R4-R10 and BAL was preformed and sent for cultures . there was bilateral lower lobe eight electosis due to mucus plugging. EEG was done and theres abnormal severe diffuse nonspecific encephalopathic state possibly related to deep sedation but no defitite epiletiform . Urology saw patient and switched out catherter and sent urine culture 10/08: White count continues to downtred , bronch cultures shows many growth of gram negative rods 10/09: Improving respitatorily , respitory cultures show MDRO acinetobacter baumanii that is resistant to multiple organisms , improving on current antibiotic regimen. 10/10: White count is normal , chest xray shows persistent eight electosis likely pneumonia is cleared at this time Plan: - continue ceftriaxone to complete a 7-10 day course - recommend a chest x-ray if resp. status worsens and empirically starting fetroja , can hold off for now - Follow up on BAL cultures , urine cultures - Monitor fever curve and white count Isolation Precautions: Standard Assessment and plan were discussed with the care team as written above. Plan is subject to change pending incorporation of new incoming information/diagnostics. Updates may be added as an addendum at the bottom (OR TOP) of this note. Thank you for interesting consult. ID will continue to follow. Please contact Infectious Disease for any questions or concerns. Naima Colón M.D. [facility] Plan discussed with: Other Dietary Evaluation Review Comments: 1. If pt extubated, follow S/P for regular PO diet texture recommendations 2. If not extubated, start Jevity 1.2 @10ml/hr and increase 10ml/hr Q Shift till goal of 50ml/hr 1440 Kcal 67g Protein 968ml Free Water Expected Outcomes/Goals: 1. pt will consume >75% of estimated needs within 3-5 days NAIMA COLÓN MD Oct 10, 2024 22:12
[2024-10-11] VITALS (12 sets, daily range): BP systolic 136–167; BP diastolic 65–94; PULSE 70–81; RESP 16–24; TEMP 36.8; O2SAT 96–100
--- NOTE | 2024-10-11 05:42 | DVHDS2 ---
New Physician D'charge PN Admitting Diagnosis Admitting Diagnosis respiratory failure Discharge Diagnosis 1. Acute Respiratory Failure due to Aspiration Operations or Procedures intubation/extubation Reason(s) For Hospitalization Surgery Hospital Course 84 M who was admitted for PNA likely aspiration and eventually required intubation and initiation of mechanical ventilatory support. He was admitted to the ICU and required vasopressor support but eventually the vasopressors were weaned. He was started on IV Abx and ID saw him and followed him through the hospital course and eventually his WBC normalized. He was seen by pulmonary and underwent bronchoscopy with cultures and eventually once his respiratory status improved he was extubated from the vent. Cardiology saw him as well he as preserved LVEF on echo. His BCx and UCx were negative and mental status began to improve with neurology following him here in the hospital. He was downgraded to [facility] and underwent a swallow eval and first time he did not pass however on second reeval he was recommended for pureed texture with nectar thickened liquids. I spoke to patient daughter and she made him a DNR/DNI in the event his condition decompensates. He is profoundly weak and given her overall frail status and prolonged hospital course it was decided by the daughter to opt for hospice at home. This arrangements have been made for the patient to be discharged home on hospice as per family wishes. Hospice to arrange for DME and transport and the patient to DC home with hospice. Treatment Plan Discharge Condition of Discharge Fair Disposition Hospice - Home Discharge Instructions Diet: Cardiac 2g Na,low cholest Activity: No Restrictions, As Tolerated Medications: see med sheet Follow Up Care Follow Up/Referral: hospice at home Discharge Statement: "Patient was advised to return to the ER or call 911 if any headaches, dizziness, shortness of breath, chest pain, abdominal pain, bleeding, fevers, or worsening of medical condition. Patient was counseled about treatment plan, medications, possible side effects, patientverbalized understanding. All questions were answered to the best of my ability. This discharge took greater then 30 minutes in planning, reviewing documentation, counseling the patient, and discussing with other team members." RASTA NOBLE MD Oct 11, 2024 05:42
[2024-10-11] MEDS ORDERED: CEPH250C PO (05:43)
[2024-10-11] MEDS ORDERED: ALBU0.084 NEB (05:44)
--- NOTE | 2024-10-11 21:52 | DVHPN2 ---
Consult Progress Note Date Seen: Oct 11, 2024 Subjective Patient reports: Feels better (doing well and ready to be discharged back to hospice care , tolerating puree diet ) Objective vital signs Vital Sign Date Time Temp Pulse Resp B/P (MAP) Pulse Ox O2 Delivery O2 Flow Rate FiO2 10/11/24 13:38 98.1 77 16 153/78 (103) 99 98.1 10/11/24 10:24 Nasal Cannula* 2 28 Total Intake and Output 10/10/24 10/10/24 10/11/24 15:00 23:00 07:00 Intake Total 50 ml 0 ml 0 ml Balance 50 ml 0 ml 0 ml medications Physical Exam: General: Patient on 10 liters nasal canula sedated, grimacing minimally to pain. Neck: Supple. No masses. HEENT: Gag reflex present. PERRL. Normal lids and conjunctiva. Moist mucous membranes. Oropharynx without lesions, exudates, or excessive erythema. Normal appearance of the external aspects of the nose and ears. Heart: Regular rhythm, normal rate. No murmur. Lungs: Intubated. Breath sounds present bilaterally. Thick dark-colored sputum noted. rails in lungs bilaterally Abdomen: Soft. Non-tender. Non-distended. Normal bowel sounds. No masses or abdominal hernia. Musculoskeletal: No notable movement. Skin: Warm and dry. No rashes. Neuro: Intubated and sedated, grimacing minimally to pain. Gag reflex present. Psych: Baseline dementia. laboratory and microbiology Laboratory Tests 10/09/24 03:33 Test 10/09/24 03:33 Range/Units Serum Glucose 79 74-106 mg/dL Problem List/Assessment/Plan Problems(with codes): (1) Retention of urine (2) Aspiration into lower respiratory tract (3) Unresponsive (4) Pneumonia Problem List/Assessment/Plan ASSESSMENT AND PLAN: ID Problem List: - Acute hypoxic respiratory failure - Left lower lobe pneumonia - Dementia - Recurrent urinary tract infections - Recurrent transient ischemic attacks (TIAs) - Ventriculoperitoneal (CITY LIBRARY DIRECTOR) shunt placement Assessment This is an 84 y.o. male with a past medical history of dementia, recurrent urinary tract infections, recurrent TIAs, and CITY LIBRARY DIRECTOR shunt placement, who presents with acute hypoxic respiratory failure likely secondary to aspiration pneumonia. Per EMS, the patient was at home when he choked on pizza, vomited, and became unresponsive. He was intubated urgently in the ED upon arrival for acute respiratory failure. On admission, the patient was intubated and sedated, grimacing minimally to pain with a gag reflex present. He was hypoxic and hypertensive. Laboratory studies showed WBC 9.6, Hgb 11.3, platelets 255, sodium 145, creatinine 0.76, lactic acid 1.2, and normal liver enzymes. Imaging studies revealed left basilar opacification consistent with pleural effusion and associated atelectasis on chest X-ray. Head CT showed no acute findings but chronic periventricular ischemic changes. Microbiology data showed sputum cultures with normal respiratory shamika and no growth. Blood and urine cultures have been negative to date. The patient has been febrile since the and continues to have fevers into the . The patient underwent bronchoscopy yesterday; cultures from the bronchoalveolar lavage are pending. 10/07: Patient underwent broncoscopy yesterday and results showed there was muccus plugging form L6-L10 and R4-R10 and BAL was preformed and sent for cultures . there was bilateral lower lobe eight electosis due to mucus plugging. EEG was done and theres abnormal severe diffuse nonspecific encephalopathic state possibly related to deep sedation but no defitite epiletiform . Urology saw patient and switched out catherter and sent urine culture 10/08: White count continues to downtred , bronch cultures shows many growth of gram negative rods 10/09: Improving respitatorily , respitory cultures show MDRO acinetobacter baumanii that is resistant to multiple organisms , improving on current antibiotic regimen. 10/10: White count is normal , chest xray shows persistent eight electosis likely pneumonia is cleared at this time 10/11: veronika appears to be doing well clinically and ready to be discharged to hospice Plan: - do not recommend aany oral antibiotics as patients going back to hospice - continue ceftriaxone to complete a 7-10 day course - recommend a chest x-ray if resp. status worsens and empirically starting fetroja , can hold off for now - Follow up on BAL cultures , urine cultures - Monitor fever curve and white count Isolation Precautions: Standard Assessment and plan were discussed with the care team as written above. Plan is subject to change pending incorporation of new incoming information/diagnostics. Updates may be added as an addendum at the bottom (OR TOP) of this note. Thank you for interesting consult. ID will continue to follow. Please contact Infectious Disease for any questions or concerns. Naima Colón M.D. [facility] Plan discussed with: Other Dietary Evaluation Review Comments: 1. If pt extubated, follow S/P for regular PO diet texture recommendations 2. If not extubated, start Jevity 1.2 @10ml/hr and increase 10ml/hr Q Shift till goal of 50ml/hr 1440 Kcal 67g Protein 968ml Free Water Expected Outcomes/Goals: 1. pt will consume >75% of estimated needs within 3-5 days NAIMA COLÓN MD Oct 11, 2024 21:52
--- NOTE | 2024-10-11 22:00 | DVHPN2 ---
Progress Note - Dictate Date Seen: Oct 11, 2024 Has the PT tested + for MRSA If YES, has PT been informed?: No Medical Necessity Reason Pt with a Central, PICC or Fol: Yes The following are medically ne: Moody Catheter Reason for moody catheter: Strict I&O Subjective Patient seen and examined at bedside. Remains on supplemental oxygen. Overnight events reviewed. vital signs Vital Sign Date Time Temp Pulse Resp B/P (MAP) Pulse Ox O2 Delivery O2 Flow Rate FiO2 10/11/24 13:38 98.1 77 16 153/78 (103) 99 98.1 10/11/24 10:24 Nasal Cannula* 2 28 Total Intake and Output 10/10/24 10/10/24 10/11/24 15:00 23:00 07:00 Intake Total 50 ml 0 ml 0 ml Balance 50 ml 0 ml 0 ml objective Gen.: Patient lying in bed in no apparent distress. On supplemental oxygen. Head: Normocephalic, atraumatic. Eyes: EOMI/PERRLA. Ears: Normal hearing. Normal anatomy. Neck/trachea: Trachea midline, supple. Nose: Normal external anatomy. Mouth: Moist mucous membranes. Chest: Decreased air entry bilaterally. No wheezing or rhonchi. Cardiovascular: Positive S1, positive S2. Regular rate and rhythm. Abdomen: Positive bowel sounds in all 4 quadrants. Soft, non-tender, non- distended. : Deferred. Rectal: Deferred. Skin: Warm, dry. Intact. Extremities: 2+ radial pulses bilaterally. No lower extremity edema. Neuro: Awake, alert, oriented x3. No gross motor or sensory deficits. Cranial nerves II through XII intact. Gait not assessed. 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 Events: Remains on supplemental oxygen, 2 LPM NC Taper O2 as tolerated Continue antibiotics IS. Continue bronchodilators/Mucomyst/CPT. Head of bed elevation Aspiration precautions IV fluids at 100 ml/hr Monitor renal function Patient is stable for discharge from the pulmonary standpoint Labs and imaging reviewed. Rest of plan as noted below. Plan: s/p extubation On supplemental oxygen. Neurology recommendations appreciated. Continue antibiotics. F/u cultures. Start pressors if necessary to maintain a mean arterial blood pressure greater than 65 mmHg. Monitor renal function Monitor electrolytes. Supplement as necessary. Monitor ins and outs. Maintain euvolemia. GI prophylaxis. DVT prophylaxis. Prognosis: Guarded given patient's multiple co-morbidities. Rest of plan per hospitalist and other consultants. Thank you Dr. Basia Healy MD, for allowing me to participate in this patient's care. Further recommendations will depend on the patient's clinical course. Please do not hesitate to contact me if you have any questions or concerns. This medical document was created using an electronic medical record system with [employer] dictation system. Although these documentations are being carefully reviewed, there may still be some phonetic and typographical changes. The errors are purely typographical, due to imperfection on the software program, and do not reflect any compromise in the patient's medical care. Dietary Evaluation Review Comments: 1. If pt extubated, follow S/P for regular PO diet texture recommendations 2. If not extubated, start Jevity 1.2 @10ml/hr and increase 10ml/hr Q Shift till goal of 50ml/hr 1440 Kcal 67g Protein 968ml Free Water Expected Outcomes/Goals: 1. pt will consume >75% of estimated needs within 3-5 days Plan discussed with: Patient, Other (NIRANJAN Kohli) Respiratory Effort: ET Tube Breath sounds: Clear, Crackles, Rhonchi, Diminished Skin Moisture: Moist TRUONG HARRIS MD Oct 11, 2024 22:00
== END 2024-10-11 14:10 | disposition hospice, home (50) | DRG 870 ==
LOC: ER 20:39 → EDBD 20:39 → TELE 10-03 01:37 → ICU WEST 10-04 02:30 → TELE-CENTR 10-09 11:31
PROVIDERS: ADMIT Internal Medicine; ATTEND Student in an Organized Health Care Education/Training Program
PROC: 5A1955Z Respiratory Ventilation, Greater than 96 Consecutive Hours (ICD-10-PCS; principal; 2024-10-03)
PROC: 0BH17EZ Insertion of Endotracheal Airway into Trachea, Via Natural or Artificial Opening (ICD-10-PCS; 2024-10-03)
PROC: 06HY33Z Insertion of Infusion Device into Lower Vein, Percutaneous Approach (ICD-10-PCS; 2024-10-03)
PROC: 0B9D8ZX Drainage of Right Middle Lung Lobe, Via Natural or Artificial Opening Endoscopic, Diagnostic (ICD-10-PCS; 2024-10-03)
PROC: 0BC78ZZ Extirpation of Matter from Left Main Bronchus, Via Natural or Artificial Opening Endoscopic (ICD-10-PCS; 2024-10-03)
PROC: 5A0935A Assistance with Respiratory Ventilation, Less than 24 Consecutive Hours, High Flow/Velocity Cannula (ICD-10-PCS; 2024-10-08)
DX: A41.9 Sepsis, unspecified organism (principal); G92.8 Other toxic encephalopathy; J96.01 Acute respiratory failure with hypoxia; J69.0 Pneumonitis due to inhalation of food and vomit; J18.9 Pneumonia, unspecified organism; E87.0 Hyperosmolality and hypernatremia; G91.2 (Idiopathic) normal pressure hydrocephalus; N39.0 Urinary tract infection, site not specified; J90 Pleural effusion, not elsewhere classified; Z16.24 Resistance to multiple antibiotics; T17.820A Food in other parts of respiratory tract causing asphyxiation, initial encounter; Z66 Do not resuscitate; W44.F3XA Food entering into or through a natural orifice, initial encounter; F03.90 Unspecified dementia, unspecified severity, without behavioral disturbance, psychotic disturbance, mood disturbance, and anxiety; Y93.89 Activity, other specified; Y92.89 Other specified places as the place of occurrence of the external cause; Y99.8 Other external cause status; Z98.2 Presence of cerebrospinal fluid drainage device; Z51.5 Encounter for palliative care; Z86.73 Personal history of transient ischemic attack (TIA), and cerebral infarction without residual deficits; Z87.440 Personal history of urinary (tract) infections
CPT/HCPCS: 31500; 31624; 36415; 36556; 36600; 70450; 71045; 80048; 80053; 81001; 82805; 83605; 83690; 83735; 83880; 84484; 85007; 85025; 85027; 87040; 87070; 87081; 87086; 87205; 92507; 92610; 93005; 93306; 94002; 94003; 94640; 94667; 94668; 95819; 97163; 99291; G0378; J0692; J2470; J3480; J7060